=== PATIENT | female | born 1950 | race Caucasian/White ===

== ENCOUNTER → 2017-11-02 09:47 | Outpatient (CLI) | payer MEDICARE, OTHER, SELFPAY ==
[2017-11-02 11:17] LABS: AST(SGOT) 35 U/L (15-37); Alanine Aminotransfer ALT/SGPT 48 U/L (13-56); Alkaline Phosphatase 43 U/L (45-117); Bilirubin, Direct 0.14 mg/dL (0.00-0.30); Cholesterol 150 mg/dL (200); Globulin 3.2 g/dL (2.2-4.2); High Density Lipoprotein 70 mg/dL; Protein, Total 7.2 g/dL (6.4-8.2); Triglycerides 73 mg/dL; Very Low Density Lipoprotein 15 mg/dL (5-40)
== END ==
PROVIDERS: Family Provider Family Medicine; PCP Family Medicine; Visit Provider Internal Medicine Cardiovascular Disease
DX: E78.5 Hyperlipidemia, unspecified (principal); I42.8 Other cardiomyopathies; I51.9 Heart disease, unspecified; I10 Essential (primary) hypertension; E66.9 Obesity, unspecified; Z79.899 Other long term (current) drug therapy
CPT/HCPCS: 36415; 80061; 80076

== ENCOUNTER → 2017-11-28 11:31 | Outpatient (CLI) | payer MEDICARE, OTHER, SELFPAY ==
[2017-11-28 13:16] LABS: Anion Gap 6 (5-15); BUN 13 mg/dL (7-18); BUN/Creat Ratio 17.1 RATIO (10-20); Calcium,Total 8.9 mg/dL (8.5-10.1); Chloride 104 mmol/L (98-107); Creatinine, Serum 0.76 mg/dL (0.55-1.02); EST Glomerular Filtration Rate 81 mL/min (>60); Est Glom Filt Rate - Afr Amer 98 mL/min (>60); Glucose 89 mg/dL (74-106); Potassium 3.7 mmol/L (3.5-5.1); Sodium Level 138 mmol/L (136-145); T4 Free Direct 1.13 ng/dL (0.76-1.46); Thyroid Stim Hormone (TSH) 1.72 uIU/mL (0.358-3.74)
== END ==
PROVIDERS: Family Provider Family Medicine; PCP Family Medicine; Visit Provider Family Medicine
DX: E03.9 Hypothyroidism, unspecified (principal); I10 Essential (primary) hypertension
CPT/HCPCS: 36415; 80048; 84439; 84443

== ENCOUNTER → 2018-06-28 07:44 | Outpatient (CLI) | payer MEDICARE, OTHER, SELFPAY ==
[2018-06-19 15:31] VITALS: BMI 37.8
--- NOTE | 2018-06-28 07:45 | ECHOD_ITS ---
Reason For Study: CHF Procedure This was a 2D Doppler, Color Flow transthoracic echocardiogram. The study was technically difficult. DUE TO ARRHYTHMIA. Exam performed in department. Left Ventricle Normal size and thickness. The estimated ejection fraction is 65 %. Stage 1 diastolic dysfunction. No regional wall motion abnormalities noted. Right Ventricle Moderately dilated right ventricle. Normal systolic function. Atria Normal left atrium. Normal right atrium. Normal atrial septum. Mitral Valve The mitral valve is structurally normal. No prolapse or stenosis seen. Trivial mitral valve insufficiency. Tricuspid Valve Normal tricuspid valve. Trivial tricuspid valve insufficiency. Right ventricular systolic pressure estimated to be 23 mmHg. Aortic Valve Trisinus/trileaflet aortic valve. Pulmonic Valve Normal pulmonic valve. Trivial pulmonic valve insufficiency. Great Vessels Normal aortic root. Normal arch. Normal inferior vena cava. Inferior vena cava collapse with sniff. Pericardium/Pleural No pericardial effusion. MMode/2D Measurements & Calculations LVIDd: 5.5 cm IVSd: 1.0 cm Ao root diam: 3.1 cm LVIDs: 3.7 cm LVPWd: 1.0 cm RVDd: 4.4 cm FS: 32.6 % LAV(MOD-bp): 48.1 ml LA A4 area: 17.6 cm2 LA dimension(2D): 3.7 cm LAV(MOD-bp) Indexed: 23.1 ml/m2 LAV(MOD-sp2): 45.9 ml LAV(MOD-sp4): 43.5 ml RA A4 area: 17.2 cm2 Time Measurements MV dec time: 0.21 sec Doppler Measurements & Calculations MV E max valente: 69.3 cm/sec Lat Peak E' Valente: 7.3 cm/sec Med Peak E' Valente: 6.8 cm/sec MV A max valente: 81.8 cm/sec E/E' lat: 9.5 E/E' med: 10.2 MV E/A: 0.85 Ao V2 max: 111.2 cm/sec LV V1 max: 80.4 cm/sec PA V2 max: 109.2 cm/sec Ao max P.0 mmHg LV V1 max P.6 mmHg TR max valente: 221.6 cm/sec TR max P.8 mmHg Interpretation Summary The estimated ejection fraction is 65 %. Stage 1 diastolic dysfunction. Moderately dilated right ventricle. Trivial mitral valve insufficiency. Trivial tricuspid valve insufficiency. Right ventricular systolic pressure estimated to be 23 mmHg. Compared to echo report dated 07/30/2016, LV function has improvedf rom 45% to 65%. Ordering Physician: Jerrell Iniguez Referring Physician: Codey Estrada Performed By: Abby Perry RDCS, RVT
--- OUTSIDE RECORDS SUMMARY | 2018-08-14 02:40 | XMS RPT_ITS ---
:1950 Author Organization OHIP Support Name Relationship Address Phone LEAH MUNOZ Unavailable [address] [place] [address] + [place] [address] JANNA MUNOZ Unavailable [address] + [place] [address] R Unavailable Unavailable Unavailable LEAH MUNOZ Unavailable [address] + [place] [address] JANNA MUNOZ Unavailable [address] + [place] [address] R Unavailable Unavailable Unavailable LEAH MUNOZ Unavailable [address] [place] + [place] [address] JANNA MUNOZ Unavailable [address] + [place] [address] R Unavailable Unavailable Unavailable LEAH MUNOZ Unavailable [address] + [place] [address] JANNA MUNOZ Unavailable [address] + [place] [address] R Unavailable Unavailable Unavailable LEAH MUNOZ Unavailable [address] + [place] [address] JANNA MUNOZ Unavailable [address] + [place] [address] R Unavailable Unavailable Unavailable LEAH MUNOZ Unavailable [address] + [place] [address] JANNA MUNOZ Unavailable [address] + [place] [address] R Unavailable Unavailable Unavailable LEAH MUNOZ Unavailable [address] + [place] [address] JANNA MUNOZ Unavailable [address] + [place] [address] R Unavailable Unavailable Unavailable Care Team Providers Name Role Phone Jerrell Iniguez Attending Unavailable Jerrell Iniguez Referring Unavailable SeanCodey clark Primary Care Unavailable Jerrell Iniguez Consulting Unavailable Ml Walters Attending Unavailable Jerrell Iniguez Attending Unavailable Jerrell Iniguez Referring Unavailable Malys, Margaret Primary Care Unavailable RoofHarjinder Attending Unavailable Malys, Margaret Referring Unavailable Malys, Margaret Primary Care Unavailable SeanCodey Attending Unavailable Malys, Margaret Primary Care Unavailable Jerrell Iniguez Attending Unavailable Malys, Margaret Referring Unavailable Jerrell Iniguez Attending Unavailable Hira, Jerrell Referring Unavailable Sean, Codey Primary Care Unavailable PROBLEMS PROBLEMS DATE TYPE CONDITION / CODE ATTENDING STATUS SOURCE 06/28/2018 Unknown I51.9 - Heart disease, Jerrell Iniguez Active [facility] unspecified / Community I51.9(ICD-10) Hospital Repository 11/28/2017 Unknown I10 - Essential SeanCodey clark Active [facility] (primary) hypertension Community / I10(ICD-10) Hospital Repository 11/28/2017 Unknown E03.9 - SeanCodey clark Active [facility] Hypothyroidism, Community unspecified / Hospital E03.9(ICD-10) Repository 11/07/2017 Unknown I42.8 - Other Destiny, Harjinder Busch Active [facility] cardiomyopathies / Community I42.8(ICD-10) Hospital Repository 11/02/2017 Unknown Z79.899 - Other long Jerrell Iniguez Active [facility] term (current) drug Community therapy / Hospital Z79.899(ICD-10) Repository 11/02/2017 Unknown E78.5 - Jerrell Iniguez Active [facility] Hyperlipidemia, Community unspecified / Hospital E78.5(ICD-10) Repository 11/02/2017 Unknown E66.9 - Obesity, Jerrell Iniguez Active [facility] unspecified / Community E66.9(ICD-10) Hospital Repository PROCEDURES PROCEDURES No Procedure Records FoundRESULTS RESULTS ECHOCARDIOGRAM COMPLETE Observed: 06/28/2018 Status: F Source: [facility] 11:36 AM [facility] REPOSITORY [facility] Cardiovascular Services [address] [place] [address] Echo Complete 06/28/18 0757 MR#: [id number] Acct: [id number] Name: SHAWNA MUNOZ Rep #: [id number] : 1950 67 From: Jerrell Iniguez MD Attending Dr: Jerrell Iniguez MD Status: REG CLI Ordering Dr: Jerrell Inigeuz MD Date: 06/28/18 Location: [facility] Sex: F C Admitted: Reason For Study: CHF Procedure This was a 2D Doppler, Color Flow transthoracic echocardiogram. The study was technically difficult. DUE TO ARRHYTHMIA. Exam performed in department. Left Ventricle Normal size and thickness. The estimated ejection fraction is 65 %. Stage 1 diastolic dysfunction. No regional wall motion abnormalities noted. Right Ventricle Moderately dilated right ventricle. Normal systolic function. Atria Normal left atrium. Normal right atrium. Normal atrial septum. Mitral Valve The mitral valve is structurally normal. No prolapse or stenosis seen. Trivial mitral valve insufficiency. Tricuspid Valve Normal tricuspid valve. Trivial tricuspid valve insufficiency. Right ventricular systolic pressure estimated to be 23 mmHg. Aortic Valve Trisinus/trileaflet aortic valve. Pulmonic Valve Normal pulmonic valve. Trivial pulmonic valve insufficiency. Great Vessels Normal aortic root. Normal arch. Normal inferior vena cava. Inferior vena cava collapse with sniff. Pericardium/Pleural No pericardial effusion. MMode/2D Measurements AND Calculations LVIDd: 5.5 cm IVSd: 1.0 cm Ao root diam: 3.1 cm LVIDs: 3.7 cm LVPWd: 1.0 cm RVDd: 4.4 cm FS: 32.6 % LAV(MOD-bp): 48.1 ml LA A4 area: 17.6 cm2 LA dimension(2D): 3.7 cm LAV(MOD-bp) Indexed: 23.1 ml/m2 LAV(MOD-sp2): 45.9 ml LAV(MOD-sp4): 43.5 ml RA A4 area: 17.2 cm2 Time Measurements MV dec time: 0.21 sec Doppler Measurements AND Calculations MV E max valente: 69.3 cm/sec Lat Peak E' Valente: 7.3 cm/sec Med Peak E' Valente: 6.8 cm/sec MV A max valente: 81.8 cm/sec E/E' lat: 9.5 E/E' med: 10.2 MV E/A: 0.85 Ao V2 max: 111.2 cm/sec LV V1 max: 80.4 cm/sec PA V2 max: 109.2 cm/sec Ao max P.0 mmHg LV V1 max P.6 mmHg TR max valente: 221.6 cm/sec TR max P.8 mmHg Interpretation Summary The estimated ejection fraction is 65 %. Stage 1 diastolic dysfunction. Moderately dilated right ventricle. Trivial mitral valve insufficiency. Trivial tricuspid valve insufficiency. Right ventricular systolic pressure estimated to be 23 mmHg. Compared to echo report dated 07/30/2016, LV function has improvedf rom 45% to 65%. Ordering Physician: Jerrell Iniguez Referring Physician: Codey Estrada Performed By: Abby Perry, NAEL, RVT 06/28/18 113 Date Jerrell Iniguez MD CC: Jerrell Iniguez MD; Codey Estrada DO Date Dictated: 06/28/18 0757 Date Transcribed: 06/28/181135 Patrol Inspector: Signed CARDIOLOGY VISIT Observed: 06/19/2018 Status: F Source: [facility] REPORT 3:42 PM [facility] REPOSITORY [facility] [address] [place] [address] OFFICE VISIT Date of Service: 06/19/18 MR#: [id number] Acct: [id number] Name: SHAWNA MUNOZ Rep #: [id number] : 1950 Provider: Jerrell Iniguez MD Age/Sex: 67/F Location: [facility] Status: Signed HPI HPI Chief Complaint: Routine f/u Details: SHAWNA MUNOZ, is a 67 F who presents to the office today for a cardiovascular outpatient follow-up. She has a history of nonobstructive mild coronary artery disease by catheterization on 08/26/16, pulmonary emboli in 2009 presently from a DVT after a 18 hour car ride, nonischemic cardiomyopathy with an ejection fraction by echocardiogram of 45-50% on 07/30/16, hypertension, and hyperlipidemia. Last visit the patient has been relatively stable and without symptoms. She denies any chest pain, angina or shortness of breath. The patient did have some fatigue about 2 weeks ago, but no positional dizziness. She has had no changes in her exercise capacity. In our office her blood pressure is 94/60, pulse is 64 and regular her physical exam is as below. Her lipids as of 11/02/17 show an HDL of 70 and an LDL of 65. Intake Vital Signs06/19/18 Height 5 ft 5 in 06/19/18 Weight: 227 lb 06/19/18 Body Mass Index (BMI) 37.8 06/19/18 Blood Pressure 94/60 Intake Visit Reasons: 6 M FU [employer] Required: No Is patient in pain?: No Allergies Iodinated Contrast- Oral and IV Dye [Iodinated Contrast Media - Oral and] Allergy (Verified 06/19/18 15:33) Itching Sulfa (Sulfonamide Antibiotics) Allergy (Verified 06/19/18 15:33) Unknown Medications Citalopram [Celexa] 20 mg PO DAILY 11/03/13 [History Confirmed 06/19/18] Acetaminophen [Tylenol Arthritis] 650 mg PO Q4H PRN PRN 08/25/16 [History Confirmed 06/19/18] Aspirin E.C. [Ecotrin] 81 mg PO DAILY@0800 08/25/16 [History Confirmed 06/19/18] Levothyroxine [Synthroid] 50 mcg PO DAILY 08/25/16 [History Confirmed 06/19/18] losartan 50 mg-hydrochlorothiazide 12.5 mg tablet 1 tab PO DAILY #90 tab 08/22/17 [Rx Confirmed 06/19/18] simvastatin 20 mg tablet 20 mg PO QPM #90 tab 09/09/17 [Rx Confirmed 06/19/18] carvedilol 3.125 mg tablet 3.125 mg PO BID #180 tab 10/03/17 [Rx Confirmed 06/19/18] multivitamin tablet 1 tab PO DAILY 06/19/18 [History Confirmed 06/19/18] pyridoxine (vitamin B6) 100 mg tablet 100 mg PO DAILY 06/19/18 [History Confirmed 06/19/18] PFSH Medical History Anxiety (Chronic) Hypothyroidism (Chronic) Diastolic dysfunction (Chronic) Nonischemic cardiomyopathy (Chronic) Encounter for long-term current use of high risk medication (Chronic) Hyperlipidemia (Chronic) Essential (primary) hypertension (Chronic) Fatigue (Acute) Obesity (Acute) Varicose veins of both legs with edema (Acute) Family History Father CAD (coronary artery disease) cabg Myocardial infarction Mother Myocardial infarction Sudden cardiac chf Sister Heart disease Social History Smoking Status: Never smoker alcohol intake: never substance use type: does not use caffeine: Yes Type: coffee Number of servings: 2 what type of physical activity do you participate in: none seatbelt use: always do you feel safe at home: Yes ROS Const Const: Positive for other (Feels well. Had one week of severe fatigue, now is feeling ok.); negative for fatigue, weakness, body ache, fever(s), headache(s), chills, frequent falls, night sweats, daytime sleepiness, difficulty sleeping, excessive sweating, weight gain, weight loss, increased appetite, poor appetite or anorexia Eyes Eyes: Negative for blind spots, loss of peripheral vision, transient loss of vision, blurry vision, change in vision, double vision, floaters, tunnel vision or other ENT ENT: Negative for headache(s), dizziness, hearing loss, tinnitus, Nosebleed/epistaxis, balance problems, post nasal drip, lip swelling, tongue swelling, bleeding gums, hoarseness, neck pain, dry mouth or other Cardio Chest Pain: No Palpitations: No Edema: None Muscle aches with walking: None Resp Respiratory: Positive for Cough (occasional dry, nagging cough: allergies); negative for SOB with activity, SOB at rest, SOB orthopnea\SOB lying down, Coughing up blood/hemoptysis, chest congestion, pain on inspiration, snoring, stridor, wheezing, crackles, paroxysmal nocturnal dyspnea or other GI GI: Negative nausea, vomiting, heartburn, constipation, belching, bloating, cramping, vomiting blood/hematemesis, bright, red blood in stools, black,tarry stools, loose stools, Difficulty Swallowing or other : Negative for hematuria, frequent nighttime urination/ nocturia, erectile dysfunction or abnormal vaginal bleeding Musc Musc: Negative for balance problems, muscle aches/ myalgia, muscle weakness or joint pain Skin Skin: Negative redness, non-healing lesions, rash, unusual bruising, skin ulcer, wounds, jaundice or other Neuro Neuro: Negative for weakness, headache(s), frequent falls, blurry vision, double vision, dizziness, lightheadedness, near syncope, syncope, orthostatic symptoms, confusion, memory loss, restless legs, vertigo, seizures, lack of coordination or other Anam Hematologic/Lymphatic: Negative for easy bleeding, easy bruising, enlarged lymph nodes or other Endo Endo: Negative for fatigue, excessive sweating, cold intolerance, heat intolerance, flushing, increased thirst/drinking, increased hunger, hair loss, hair growth or other Psych Psych: Negative for anxiety, depression, thoughts of harming anyone, thoughts of harming yourself, visual hallucinations, panic attacks or audible hallucinations Allergy Allergy/Immunology: Negative for lip swelling, Negative for tongue swelling, Negative for rash, Negative for throat swelling, Negative for hives Cardiology Exam Const Appearance: cooperative, healthy appearing and no acute distress Nutritional Appearance: well nourished Orientation: alert, oriented x3 and oriented to person Head Head: normal to inspection, atraumatic and normocephalic Nose: external nose normal Face and Sinus: face symmetric Mouth: oral mucosae normal Eyes General: appearance normal, both eyes and all related structures Eyelids: eyelids normal Conjunctivae: conjunctivae normal Pupils: PERRL and normal by confrontation EOM: EOM intact bilaterally Neck Neck: normal visual inspection and full ROM Carotids: normal carotid upstroke Chest Chest inspection: normal inspection of the chest Auscultation: Bilateral: Clear to Auscultation Cardio Palpation: normal PMI Rate: regular rate Rhythm: regular rhythm Heart sounds: S1 normal and S2 normal GI GI: normal to inspection, no hepatosplenomegaly and bowel sounds present Neuro General: alert, oriented x3, awake, CN's II-XI intact bilaterally and moves all extremities Skin Skin: no rashes or lesions noted Extremities Pulses: Normal: Right Femoral Pulse, Left Femoral Pulse, Right Dorsalis Pedis Pulse, Left Dorsalis Pedis Pulse, Right Posterior Tibial Pulse, Left Posterior Tibial Pulse, Right Radial Pulse, Left Radial Pulse Lower Extremity Edema: None: Bilateral Psych Psychological: normal affect Assessment AND Plan 1. Nonischemic cardiomyopathy I42.8 Plan 1. Nonischemic cardiomyopathy: The patient's ejection fraction was around 45-50% in July 2016. Given the patient's fatigue symptoms as well as her hypotension, I am concerned that her ejection fraction may have worsened. I recommended that she continue baby aspirin, Coreg, and Hyzaar and we repeat her echocardiogram to monitor her LV function and pulmonary pressures. 2. Pure hypercholesterolemia E78.00 Plan 2. Hyperlipidemia: Her LDL and HDL cholesterol are at goal. Continue Zocor. 3. Return office in 6 months. This note was generated using a voice recognition system and there may be incorrect words, spelling or punctuation that were not noted when reviewing the office note prior to saving. Plan Detail Other Orders Orders: Other Medications New: Follow Up +6M (Iniguez) Coding Level of Care Code Off vis,est,level 3 Diagnoses Nonischemic cardiomyopathy I42.8 Pure hypercholesterolemia E78.00 Hyperlipidemia type: pure hypercholesterolemia Coding Level of Care Code Off vis,est,level 3 Diagnoses Nonischemic cardiomyopathy I42.8 Pure hypercholesterolemia E78.00 Hyperlipidemia type: pure hypercholesterolemia 06/19/18 1542 <Electronically signed by Jerrell Iniguez MD> Date Jerrell Iniguez MD Cosigner Signature: Date (if applicable) CC: Margaret Holm DO BASIC METABOLIC Collected: 11/28/2017 Status: F Source: [facility] PROFILE ([facility]) 11:33 AM [facility] REPOSITORY TYPE CODE TESTS RESULT OUT OF RANGE REFERENCE UNITS LAB L501.0100 74-106 mg/dL Normal GLU 89 Result Comment: Please note revised GLUCOSE reference range effective 2017. LAB L501.1000 7-18 mg/dL Normal BUN 13 LAB L501.1100 0.55-1.02 mg/dL Normal CREAT,SERUM 0.76 Result Comment: The validity of the calculated GFR AND GFRAA in patients over 70 years has not been determined. Clinical correlation is essential. LAB L501.1110 >60 mL/min Normal EST GFR 81 Result Comment: Non- GFR Calc LAB L501.1115 >60 mL/min Normal EST GFR - AA 98 Result Comment: GFR Calc LAB L501.1300 10-20 RATIO Normal BUN/CRE 17.1 LAB L501.2200 8.5-10.1 mg/dL CA Normal 8.9 LAB L501.5300 136-145 mmol/L NA Normal 138 LAB L501.5600 3.5-5.1 mmol/L K Normal 3.7 LAB L501.5900 98-107 mmol/L CL Normal 104 LAB L501.6100 21.0-32.0 mmol/L Normal CO2 28.0 LAB L501.6200 5-15 Normal GAP 6 Performed By: #### L500.2500, L501.9520, L506.0400 #### [facility] [address] [place], [address] THYROID STIM HORMONE Collected: 11/28/2017 Status: F Source: [facility] ([facility]) 11:33 AM [facility] REPOSITORY TYPE CODE TESTS RESULT OUT OF RANGE REFERENCE UNITS LAB L501.9520 0.358-3.74 uIU/mL Normal TSH 1.72 Performed By: #### L500.2500, L501.9520, L506.0400 #### [facility] [address] [place], [address] T4 FREE DIRECT Collected: 11/28/2017 Status: F Source: [facility] 11:33 AM [facility] REPOSITORY TYPE CODE TESTS RESULT OUT OF RANGE REFERENCE UNITS LAB L506.0400 0.76-1.46 ng/dL Normal T4 FREE 1.13 DIRECT Performed By: #### L500.2500, L501.9520, L506.0400 #### [facility] [address] [place], [address] CARDIOLOGY VISIT Observed: 11/12/2017 Status: F Source: [facility] REPORT 11:34 AM [facility] REPOSITORY [facility] [address] [place] [address] OFFICE VISIT Date of Service: 11/07/17 MR#: [id number] Acct: [id number] Name: SHAWNA MUNOZ Rep #: [id number] : 1950 Provider: TERESO Dixon Age/Sex: 67/F Location: [facility] Status: Signed HPI HPI Details: SHAWNA MUNOZ, is a 67 F who presents to the office today for a cardiovascular outpatient follow-up. She has a history of nonobstructive mild coronary artery disease, pulmonary emboli in 2009 presently from a DVT after a 18 hour car ride, nonischemic cardiomyopathy, hypertension, and hyperlipidemia. Pt. denies chest, arm, jaw, or neck discomfort. Her exercise tolerance is stable. Pt. denies symptoms of CHF, near syncope, or syncopal episodes. Pt. denies edema or claudication issues. Pt. denies orthopnea, PND, fever, chills, blood in urine, blood in stool, myalgia, or unexplainable fatigue. She states some SOB with with activity but feels is appropriate for her exertion. Pt. states some fast heart after drinking caffeine. Intake Vital Signs11/07/17 Height 5 ft 5 in 11/07/17 Weight: 222 lb 11/07/17 Body Mass Index (BMI) 36.9 Intake Visit Reasons: 6 M FU [employer] Required: No Accompanied by: none Is patient in pain?: No Allergies Iodinated Contrast- Oral and IV Dye [Iodinated Contrast Media - Oral and] Allergy (Verified 08/26/16 08:30) Itching Sulfa (Sulfonamide Antibiotics) Allergy (Verified 11/07/13 23:30) Unknown Medications Citalopram [Celexa] 20 mg PO DAILY 11/03/13 [History Confirmed 11/07/17] Acetaminophen [Tylenol Arthritis] 650 mg PO Q4H PRN PRN 08/25/16 [History Confirmed 11/07/17] Aspirin E.C. [Ecotrin] 81 mg PO DAILY@0800 08/25/16 [History Confirmed 11/07/17] Levothyroxine [Synthroid] 50 mcg PO DAILY 08/25/16 [History Confirmed 11/07/17] losartan 50 mg-hydrochlorothiazide 12.5 mg tablet 1 tab PO DAILY #90 tab 08/22/17 [Rx Confirmed 11/07/17] simvastatin 20 mg tablet 20 mg PO QPM #90 tab 09/09/17 [Rx Confirmed 11/07/17] carvedilol 3.125 mg tablet 3.125 mg PO BID #180 tab 10/03/17 [Rx Confirmed 11/07/17] Ejection fraction %: 45 to 49 PFSH Medical History Hypothyroidism (Chronic) Diastolic dysfunction (Chronic) Nonischemic cardiomyopathy (Chronic) Encounter for long-term current use of high risk medication (Chronic) Hyperlipidemia (Chronic) Essential (primary) hypertension (Chronic) Anxiety (Chronic) Fatigue (Acute) Obesity (Acute) Varicose veins of both legs with edema (Acute) Family History Father CAD (coronary artery disease) cabg Myocardial infarction Mother Myocardial infarction Sudden cardiac chf Sister Heart disease Social History Smoking Status: Never smoker alcohol intake: never substance use type: does not use caffeine: Yes Type: coffee Number of servings: 2 what type of physical activity do you participate in: none seatbelt use: always do you feel safe at home: Yes ROS Const Const: Negative for weakness, body ache, fever(s), chills or fatigue ENT ENT: Positive for dizziness (with position changes) Cardio Chest Pain: No Palpitations: Yes (with caffeine) Edema: Bilateral (with long travel) Muscle aches with walking: None Additional Details: elevated heart rate after drinking caffeine Resp Respiratory: Positive for SOB with activity (expected for activity level); negative for SOB at rest, SOB orthopnea\SOB lying down or paroxysmal nocturnal dyspnea GI GI: Negative nausea, black,tarry stools, bright, red blood in stools or vomiting blood/hematemesis : Negative for hematuria or frequent nighttime urination/ nocturia Musc Musc: Negative for muscle aches/ myalgia Neuro Neuro: Positive for lightheadedness and dizziness (with position changes); negative for near syncope, syncope, orthostatic symptoms or weakness Endo Endo: Negative for fatigue Cardiology Exam Const Appearance: cooperative, healthy appearing, comfortable and no acute distress Orientation: alert, awake and oriented x3 Head Head: normal to inspection Mouth: oral mucosae normal Neck Neck: no JVD and normal visual inspection Carotids: normal carotid upstroke Chest Chest inspection: normal inspection of the chest and normal respiratory effort Auscultation: Bilateral: Clear to Auscultation Cardio Rate: regular rate Rhythm: regular rhythm Heart sounds: S1 normal and S2 normal; negative rub or gallop GI GI: normal to inspection Neuro General: alert, awake, oriented x3 and CN's II-XI intact bilaterally Skin Skin: no rashes or lesions noted Extremities Pulses: Normal: Right Posterior Tibial Pulse, Left Posterior Tibial Pulse, Right Radial Pulse, Left Radial Pulse Lower Extremity Edema: None: Bilateral Psych Psychological: normal affect Supplemental Info Heart catheterization from August 2016 showed left main with no significant lesions, LAD with 40% stenosis, diagonal branches as normal, LCx is nondominant and angiographically normal, RCA that is a large and dominant vessel with 20% stenosis, PDA is angiographically normal, and posterolateral branch is angiographically normal. Ejection fraction was noted to be 40%. Echocardiogram from July 2016 showed mildly dilated left ventricle, estimated ejection fraction of 45-50%, stage I diastolic dysfunction, mild to moderate global hypokinesis of left ventricle, trivial mitral valve insufficiency, RVSP of 23 mmHg, and when compared to previous echocardiogram in October 2013 LV function appears slightly worse from 55 to 45 50%, global hypokinesis, and RVSP has remained the same. Assessment AND Plan 1. Nonischemic cardiomyopathy I42.8 Plan - GEORGE Amaro Patient's most recent heart catheterization from August 2016 showed mild nonobstructive coronary artery disease with an LAD of 40% stenosis, RCA with 20% stenosis, and ejection fraction of 40%. Echocardiogram from July 2016 showed an estimated ejection fraction 45-50%. She denies any concerning shortness of breath or lower extremity edema. She will continue current medications which include beta-amos, ARB, and diuretic. We will continue to monitor this through history, exam, and repeat echocardiogram as needed. Orders Orders: 2. Diastolic dysfunction I51.9 Plan - GEORGE Amaro Echocardiogram from July 2016 showed stage I diastolic dysfunction. Patient's activity level has remained stable. She denies any concerning or unexpected shortness of breath. We will continue to monitor this. She will continue current medications. Orders Orders: 3. Essential (primary) hypertension I10 Plan - GEORGE Amaro Patient's blood pressure is well-controlled today in the office. We will continue to monitor this. We will not make any medication regimen changes. 4. Pure hypercholesterolemia E78.00; E78.0 Plan - GEORGE Amaro Patient's lipid panel from 2018 showed cholesterol: 150, HDL: 70, LDL: 65, and triglycerides: 73. She will continue with current cholesterol-lowering medication. She will repeat both lipid and liver panel in approximately 6 months. We will wait for results of these tests for further recommendation. Plan Detail Additional Comments - GEORGE Amaro Discussed the above patient with Dr. Iniguez, he agrees with the plan of care. Thank you for allowing us to participate in the patients plan of care, if you have any questions please do not hesitate to call. This note was generated using a voice recognition system and there may be incorrect words, spelling or punctuation that were not noted when reviewing the office note prior to saving. Coding Level of Care Code Off vis,est,level 3 Diagnoses Nonischemic cardiomyopathy I42.8 Diastolic dysfunction I51.9 Essential (primary) hypertension I10 Pure hypercholesterolemia E78.00; E78.0 Hyperlipidemia type: pure hypercholesterolemia Coding Level of Care Code Off vis,est,level 3 Diagnoses Nonischemic cardiomyopathy I42.8 Diastolic dysfunction I51.9 Essential (primary) hypertension I10 Pure hypercholesterolemia E78.00; E78.0 Hyperlipidemia type: pure hypercholesterolemia 11/07/17 1000 <Electronically signed by Harjinder Dixon MEDIA RELATIONS INTERN-C> Date Harjinder Dixon MEDIA RELATIONS INTERN-C 11/12/17 1134<Electronically signed by Jerrell Iniguez MD> Cosigner Signature: Date (if applicable) Jerrell Iniguez MD CC: Margaret Holm DO 12 LEAD EKG PERFORMED Observed: 11/07/2017 Status: F [place] [facility] 8:27 AM [facility] REPOSITORY [facility] [address] [place] [address] 12 Lead EKG performed by [facility] 11/07/17 0826 MR#: [id number] Acct: [id number] Name: SHAWNA MUNOZ Rep #: [id number] : 1950 67 From: Harjinder Dixon MEDIA RELATIONS INTERN-C Attending Dr: Harjinder Dixon NP Status: DEP AMB Ordering Dr: Harjinder Dixon MEDIA RELATIONS INTERNEduardC Date: 11/07/17 [place] [facility] [place]: F C Admitted: [facility]/12 Lead EKG performed by [facility] ECG Report Interpretation Sinus Rhythm Low voltage in precordial leads. ABNORMAL Electronically signed on 11/28/2017 at 09:35 by Jerrell Iniguez 11/28/17 0936 Date Harjinder Dixon NP-C CC: Margaret Holm DO Date Dictated: 11/07/17825 Date Transcribed: 11/07/17825 Patrol Inspector: URIEL Signed LIVER PROFILE Collected: 11/02/2017 Status: F Source: [place] 9:56 AM [facility] REPOSITORY Order Comment: Order Date: 03/18/17 Order Info: [id number] - *Hepatic Function Panel Order Info: [id number] - *Lipid Profile CC PCP Comments: 12 hours fasting, may have water. TYPE CODE TESTS RESULT OUT OF RANGE REFERENCE UNITS LAB L501.1500 6.4-8.2 g/dL Normal T PROT 7.2 LAB L501.1800 3.2-5.0 g/dL Normal ALB 4.0 LAB L501.1950 2.2-4.2 g/dL Normal GLOB 3.2 LAB L501.4100 15-37 U/L Normal AST 35 LAB L501.4305 45-117 U/L Low ALK P 43 LAB L501.4405 13-56 U/L Normal ALT 48 LAB L501.4600 0.20-1.00 mg/dL Normal T BILI 0.50 LAB L501.4700 0.00-0.30 mg/dL Normal D BILI 0.14 Performed By: #### L500.3400 #### [facility] [address] [place], [address] LIPID PROFILE Collected: 11/02/2017 Status: F Source: [place] 9:56 AM [facility] REPOSITORY Order Comment: Order Date: 03/18/17 Order Info: [id number] - *Hepatic Function Panel Order Info: [id number] - *Lipid Profile CC PCP Comments: 12 hours fasting, may have water. TYPE CODE TESTS RESULT OUT OF RANGE REFERENCE UNITS LAB L501.4900 200 mg/dL Normal CHOL 150 Result Comment: <200 mg/dL Desirable 200-240 mg/dL Borderline >240 mg/dL High Risk LAB L501.5000 mg/dL Normal TRIG 73 Result Comment: The drugs N-Acetylcysteine and Metamizole may falsely depress this assay. Serum Triglycerides Reference Interval Normal <150 mg/dL Borderline high 150 - 199 mg/dL High 200 - 499 mg/dL Very High > or = 500 mg/dL LAB L501.6400 mg/dL Normal HDL 70 Result Comment: The drugs N-Acetylcysteine and Metamizole may falsely depress this assay. Reference Range HDL <40 mg/dL Low HDL Cholesterol HDL >or= 60 mg/dL High HDL Cholesterol LAB L501.6500 0-130 mg/dL Normal LDL 65 LAB L501.6600 5-40 mg/dL Normal VLDL 15 Performed By: #### L500.4100 #### [facility] [address] [place], [address] ALLERGIES ALLERGIES DATE TYPE / CODE NAME / CODE REACTION SEVERITY SOURCE 06/19/2018 Drug Iodinated Itching Unknown [facility] Allergy/416 Contrast- Oral [facility] 289903(SNOM and IV Repository ED CT) Dye/[id number](R XNORM) 06/19/2018 Drug Sulfa Unknown Unknown [facility] Allergy/416 (Sulfonamide Hospital 402576(SNOM Antibiotics)/F[address]) 3323424(RXNORM) ENCOUNTERS ENCOUNTERS ADMIT/DISCHARGE ACCOUNT ADMITTING ENCOUNTER LOCATION SOURCE NUMBER CLASS 06/28/2018 [id number] Ambulatory BMSBuilding:B [place] 8 MS.CF.[facility] Repository 06/28/2018 [id number] Ambulatory [place] 1 [facility] ing:[facility] Repository 06/19/2018/ [id number] Ambulatory BMSBuilding:B [place] 8 4 MS.[facility] Repository 11/28/2017 [id number] Ambulatory [place] 6 [facility] ing:[facility] Repository 11/07/2017/ [id number] Ambulatory BMSBuilding:B [place] 8 0 MS.[facility] Repository 11/02/2017 [id number] Ambulatory [place] 2 [facility] ing:LAB Repository 11/01/2017 [id number] Ambulatory B[place] 0 [facility] Repository PAYERS PAYERS ENCOUNTER GUARANTOR PAYER SUBSCRIBER SOURCE 06/28/2018 SHAWNA Grant Primary SHAWNA [id number] Insurance:MEDICARE MILLERDOB: [facility] PART A [id number] [place], Number: Repository [place] [id number]: [id number] Date:2018-06-19 () 06/28/2018 Secondary SHAWNA M [place] Insurance:LEI ESPARZA: Community SUPPLEMENT [id number] Number: [id number] Date:5056-40-83EKZOHX AN [address] [address], [place] [address]WS: 06/28/2018 Tertiary NOT GIVENUNK [place] Insurance:SELF PAY [facility] Number: Effective Repository Date:2018-06-28 06/28/2018 SHAWNA Grant Primary SHAWNA [id number] Insurance:MEDICARE MILLERDOB: Community [place] PART A [facility] [id number] Number: Repository [place] [id number]: [id number] Date:2018-06-19 () 06/28/2018 Secondary SHAWNA M [place] Insurance:LEI SHOEMAKERB: Community SUPPLEMENT [id number] Rep[facility] Number: [id number] Date:[id number] AN [address] [address], [place] [address]ML: 06/28/2018 Tertiary NOT GIVENUNK [place] Insurance:SELF PAY [facility] Number: Effective Repository Date:2018-06-19 06/19/2018 SHAWNA Grant Primary SHAWNA [id number] Insurance:MEDICARE MILLERDOB: Community [place] PART A [facility] [id number], Number: Repository [place] [id number]: [id number] Date:2017-11-07 () 06/19/2018 Secondary SHAWNA M [place] Insurance:LEI ESPARZA: Community SUPPLEMENT [id number] Number: [id number] Date:3194-91-75EVOAKX [address] [address], [place] [address]KO: 06/19/2018 Tertiary NOT GIVENUNK [place] Insurance:SELF PAY [facility] Number: Effective Repository Date:2018-06-19 11/28/2017 SHAWNA Grant Primary SHAWNA [id number] Insurance:MEDICARE MILLERDOB: Community [place] PART A [facility] [id number], Number: Repository [place] [address]Pix: [id number] Date:2017-11-28 () 11/28/2017 Secondary SHAWNA M [place] Insurance:LEI MUNOZDOB: Community SUPPLEMENT [id number] Repository Number: [id number] Date:[id number] [address] [address], [place] [address]EG: 11/28/2017 Tertiary NOT GIVENUNK [place] Insurance:SELF PAY [facility] Number: Effective Repository Date:2017-11-28 11/07/2017 SHAWNA Grant Primary SHAWNA [id number] Insurance:MEDICARE MILLERDOB: Community [place] PART A [facility] [id number] [place], Number: Repository [place] [address]Oiu: [id number] Date:2017-06-27 () 11/07/2017 Secondary SHAWNA M [place] Insurance:LEI MUNOZDOB: Community SUPPLEMENT [id number] [facility] Repository Number: [id number] Date:5391-81-16NKCJLONORTHWEST MEDICAL CENTER LIFE [address] [address], [place] [address]DP: 11/07/2017 Tertiary NOT GIVENUNK [place] Insurance:SELF PAY [facility] Number: Effective Repository Date:2017-11-07 11/02/2017 SHAWNA Grant Primary SHAWNA [id number] Insurance:MEDICARE MILLERDOB: Community [place] PART A [facility] [id number] [facility], Number: Repository [place] [id number]: [id number] Date:2017-11-02 () 11/02/2017 Secondary SHAWNA Juanita [place] Insurance:LEI ESPARZA: Community SUPPLEMENT [id number] [facility] [place] Repository Number: [id number] Date:0206-15-80GMRQQO [address] [address], [place] [address]KG: 11/02/2017 Tertiary NOT GIVENUNK [place] Insurance:SELF PAY [facility] Number: Effective Repository Date:2017-11-02 11/01/2017 Shawna M Primary NOT GIVENUNK [place] [id number] Insurance:SELF PAY [facility], Number: Effective Repository [place] [address]Utu: Date:2017-11-01 ()
== END ==
PROVIDERS: Family Provider Family Medicine; PCP Family Medicine; Referring Provider Internal Medicine Cardiovascular Disease; Visit Provider Internal Medicine Cardiovascular Disease
DX: I51.9 Heart disease, unspecified (principal)
CPT/HCPCS: 93306

== ENCOUNTER 2018-10-19 07:25 | Emergency (ER) | payer MEDICARE, OTHER, SELFPAY ==
[2018-06-19 15:31] VITALS: BMI 37.8
[2018-10-19 07:26] VITALS: BP 117/71; PULSE 66; RESP 18; TEMP 36.8; O2SAT 98; BMI 37.4
--- NOTE | 2018-10-19 07:38 | EKG12_ITS ---
Test Reason : BACK PAIN Blood Pressure : / mmHG Vent. Rate : 060 BPM Atrial Rate : 060 BPM P-R Int : 186 ms QRS Dur : 092 ms QT Int : 450 ms P-R-T Axes : 028 -03 029 degrees QTc Int : 450 ms Normal sinus rhythm Normal ECG Confirmed by COLETTE MUÑOZ, CAMERON ([id number]), assignment desk editor TERESA RIOS ([id number]) on 10/23/2018 9:28:44 AM Referred By: TEJAS Confirmed By:CAMERON ALVARENGA MD
--- NOTE | 2018-10-19 07:38 | RAD_ITS ---
STUDY: X-RAY CHEST REASON FOR EXAM: Female, 67 years old. Pleuritic chest pain. TECHNIQUE: PA and lateral views of the chest. COMPARISON: Comparison is made with prior study dated August 24, 2016. FINDINGS: EKG electrodes are seen. Minimal increased linear markings at the left lung base suggestive of a left basilar atelectasis. There is no demonstrated pleural abnormality. There is borderline cardiomegaly. Normal mediastinum and mayito. Normal visualized pulmonary arteries. There is atherosclerotic tortuosity of the aortic arch and descending thoracic aorta. There are degenerative changes of the visualized thoracic spine. Normal visualized ribs, clavicles, and shoulders. There is no demonstrated abnormality of the visualized soft tissue structures of the upper abdomen. RAD/Chest PA and Lateral IMPRESSION: Minimal increased linear markings at the left lung base suggestive of left basilar atelectasis Electronically Signed: Garrett Avila, at 8:35 EDT , Service support ,
--- NOTE | 2018-10-19 07:44 | ED.DCSUM_ITS ---
History of Present Illness Chief Complaint: Back Informant: Patient, Significant Other Onset: Today Context: Sudden Onset Timing: Continuous Quality: Pain left scapular region with pleuritic component Location: Left scapula Current Severity: Mild Maximum Severity: Severe Worsened by: Movement and breathing Relieved by: Nothing Associated Symptoms: Dyspnea on exertion Narrative: Patient is a 67-year-old woman who has history of pulmonary embolus x2 with no known etiology. Anticoagulant was discontinued 8 months ago by her doctor. She does have history of hypertension hypercholesterolemia. She is a non-smoker. She was awakened from sleep with left scapular pain that is pleuritic. There is a positional component. She does complain of dyspnea with exertion. She denies chest discomfort. She does have a slight cough. She states she had a more significant cough when she was diagnosed with pulmonary embolus. She denies leg pain, swelling discoloration. She recently read return from [place], 2 weeks ago. She denies dysuria, frequency, urgency or hematuria. She denies history of renal or ureterolithiasis. She denies trauma, rash or any skin lesions. Prior similar symptoms: No Recent Illness/Hospitalization: No - Past Medical History (1) Prior pulmonary embolus Status: Chronic (2) Anxiety Status: Chronic (3) Essential (primary) hypertension Status: Chronic (4) Hyperlipidemia Status: Chronic (5) Hypothyroidism Status: Chronic (6) Nonischemic cardiomyopathy Status: Chronic Past Medical History - Allergies and Home Meds Allergies/Adverse Reactions: Allergies Iodinated Contrast- Oral and IV Dye [Iodinated Contrast Media - Oral and] Allergy (Verified 06/19/18 15:33) Itching Sulfa (Sulfonamide Antibiotics) Allergy (Verified 06/19/18 15:33) Unknown Primary Care Physician: Codey Estrada DO [Primary Care Provider] - Prior records reviewed: Yes Surgical History: noncontributory, - - Hysterectomy Lives: Spouse/ Significant Other Smoking Status: Never smoker Review of Systems General: Denies: Chills, Fever, Malaise, Subjective, Sweats, Weight loss, - Eyes: Denies: Visual changes - bilaterally, Blurred Vision - bilaterally ENT: Denies: Rhinorrhea, Sore throat Cardiovascular: Denies: Chest pain, Palpitations, Heart racing, -, - Respiratory: Reports: Dyspnea, Cough, Dyspnea on exertion. Denies: Sputum, Orthopnea, Paroxysmal nocturnal dyspnea Gastrointestinal: Denies: Abdominal pain, Nausea, Vomiting, Diarrhea, Melena, Hematochezia Genitourinary: Denies: Dysuria, Hematuria, Frequency Musculoskeletal: Reports: Back pain. Denies: Myalgias, Arthralgias, Neck pain, Extremity Pain Skin: Denies: Rash Neurological: Denies: Weakness, Parasthesia Hematologic: Denies: Easy bruising, Easy bleeding Allergy: Denies: Uticaria Physical Exam Vital Signs/Narrative: Vital Signs Temp Pulse Resp BP Pulse Ox 10/19/18 07:26 98.2 F 66 18 117/71 98 Inital Vital Signs reviewed: Yes General: Well nourished, Well developed, No Acute Distress - She does appear uncomfortable with breathing and movement. Head: Normocephalic, Atraumatic Eyes: Perrl, EOMI. Negative for: Pale conjunctiva, Scleral icterus ENT: Moist mucous membranes, No rhinorrhea Neck: Supple, Nontender, No lymphadenopathy, No JVD Cardiovascular: Regular rate, Regular rhythm, No murmurs, Normal S1, Normal S2 Respiratory: No distress, CTA bilaterally, Chest nontender Abdomen: Soft, Nontender, Nondistended, Normal bowel sounds, No masses. Negative for: Hepatomegaly, Splenomegaly Back: Nontender, Normal Inspection. Negative for: CVA tenderness Extremities: Nontender, No edema, - - There is no asymmetry, swelling, discoloration, leg vein distention, palpable cords or tenderness along the distribution of the deep venous system. Skin: Normal color, No rash. Negative for: Cyanosis, Jaundice, Rash Neurological: Alert, Oriented x3, Cranial nerves II-XII grossly intact, Normal Strength, Normal Sensation, Normal Gait Psychological: Normal affect, Normal Mood Diagnostic/Tx/Re-eval Chest X-Ray - ED: 2 View, Read by ED Physician, Normal, Heart, Mediastinum, Bony Structures Discoid atelectasis noted left. Will obtain CTA to evaluate for PE since d- dimer is elevated. 10/19/18 07:38 Chest PA and Lateral [RAD] Stat 10/19/18 08:30 CTA Chest W/WO Contrast [CT] Stat Laboratory Results 10/19/18 10/19/18 10/19/18 08:00 08:00 08:00 WBC 4.9 RBC 4.25 Hgb 13.4 Hct 39.6 MCV 93.2 MCH 31.5 MCHC 33.8 RDW 13.0 RDW Differential 44.3 H Plt Count 171 MPV 10.0 Immature Gran % (Auto) 0.000 Neut % (Auto) 64.5 Lymph % (Auto) 26.7 Billings % (Auto) 5.7 Eos % (Auto) 2.5 Baso % (Auto) 0.6 Absolute Neuts (auto) 3.1 Absolute Lymphs (auto) 1.30 Total Counted Not Reportable D-Dimer Quant (PE/DVT) 0.68 H* Sodium 139 Potassium 3.7 Chloride 104 Carbon Dioxide 28.0 Anion Gap 7 BUN 20 H Creatinine 0.83 Estim Creat Clear Calc 58.35 Est GFR (MDRD) Af Amer 89 Est GFR (MDRD) Non-Af 73 BUN/Creatinine Ratio 24.1 H Glucose 108 H Calcium 8.8 Troponin I < 0.015 CTA of the chest reveals no evidence of pulmonary embolus, dissection or any acute process. There is evidence of scarring left base. - Rhythm Strip Rhythm Strip: Sinus Rhythm Rate: 66 Ectopy: None - EKG Initial EKG Interpretation: Sinus Arrythmia - Ventricular rate 60. TX interval, Q restorat ion, QT interval and axis are normal. The EKG is normal. - Medical Decision Making With prior history of PE for unknown cause and discontinuation of anticoagulant need to consider pulmonary embolus. This may represent pleurisy secondary to viral infection or pneumonia. Will obtain appropriate blood work, chest x-ray and EKG. Vital signs are unremarkable. D-dimer was obtained. Troponin was obtained to evaluate for atypical presentation cardiac. Also need to consider other causes for elevated troponin that is not secondary to ischemia. That would include pulmonary embolus if significant. ED Disposition - Plan for ED Patient: Disposition: Home or Assisted Living Diagnosis: Pleuritic pain Instructions: ED Chest Pain Pleurisy Prescriptions: Naproxen [Naprosyn] 500 mg PO BID #14 tablet Referrals: Codey Estrada DO [Primary Care Provider] - 3-5 Days if not improving
[2018-10-19 08:15] LABS: Absolute Neutrophil Count 3.1 X10^3/uL (2.0-7.7); Basophil# 0.03 X10^3/uL; Basophil% 0.6 % (0-1); Eosinophil# 0.12 X10^3/uL; Eosinophils% 2.5 % (0-5); Hematocrit 39.6 % (37-47); Hemoglobin 13.4 g/dl (12.0-15.0); Lymphocyte % 26.7 % (19-41); Mean Corp Hgb Conc 33.8 g/gl (32-36); Mean Corpuscular Hgb 31.5 pg (27.0-32.0); Mean Corpuscular Volume 93.2 fL (81-99); Monocyte# 0.28 X10^3/uL; Monocyte% 5.7 % (0-10); Neutrophil # 3.14 X10^3/uL (2.7-7.7); Neutrophil % 64.5 % (47-70); Platelet Count 171 K/mm3 (150-450); RBC Distribution Width SD 44.3 fl (35.1-43.9); Red Blood Count 4.25 M/mm3 (4.2-5.4); White Blood Count 4.9 K/mm3 (4.4-11.0)
[2018-10-19 08:16] LABS: POSITIVE COUNT NO; POSITIVE DIFFERENTIAL NO; POSITIVE MORPHOLOGY NO
[2018-10-19 08:25] LABS: D-Dimer Quantitative (DVT/PE) 0.68 FEU/ug/m (0.27-0.49)
[2018-10-19 08:30] LABS: Anion Gap 7 (5-15); BUN 20 mg/dL (7-18); BUN/Creat Ratio 24.1 RATIO (10-20); Calcium,Total 8.8 mg/dL (8.5-10.1); Chloride 104 mmol/L (98-107); Creatinine, Serum 0.83 mg/dL (0.55-1.02); EST Glomerular Filtration Rate 73 mL/min (>60); Est Glom Filt Rate - Afr Amer 89 mL/min (>60); Estimated Creatinine Clearance 58.35 ml/min; Glucose 108 mg/dL (74-106); Potassium 3.7 mmol/L (3.5-5.1); Sodium Level 139 mmol/L (136-145)
--- NOTE | 2018-10-19 08:30 | CT_ITS ---
STUDY: CTA CHEST REASON FOR EXAM: Female, 67 years old. Elevated d-dimer and pleuritic chest pain. History of prior pulmonary emboli. RADIATION DOSAGE (If Supplied By Facility): CTDIvol = ( 15.99 ) mGy, DLP = ( 515.99 ) mGycm TECHNIQUE: The examination was performed with the intravenous administration of 100CC IV Isovue 370. Post-processing of the angiographic images was performed, with multiplanar reformation and 3D reconstruction. Individualized dose optimization techniques were used for this CT. COMPARISON: Comparison is made with prior examination dated June 25, 2016. FINDINGS: Normal enhancement of the main pulmonary artery and right and left pulmonary arteries. Normal enhancement of the bilateral peripheral pulmonary arteries. There is no demonstrated pulmonary embolism. There is atherosclerotic calcification of the aortic arch with tortuosity. There is no demonstrated aortic dissection. Normal heart and pericardium. Normal mediastinum. There are calcified right hilar lymph nodes. Normal visualized trachea and bronchi. The lungs are well expanded. Increased linear markings at the left lung base suggestive of a left basilar scarring. Stable 6 mm noncalcified nodule in the right upper lobe as seen on axial image #157. Normal pleura. Normal chest wall structures. Normal osseous structures. Normal visualized upper abdomen. CT/CTA Chest W/WO Contrast IMPRESSION: Normal CTA chest examination, without a demonstrated pulmonary embolism or arterial dissection. Stable scarring at the left lung base. Electronically Signed: Garrett Avila, at 11:26 EDT , Service support ,
--- NOTE | 2018-10-19 08:32 | ED.RN ---
MD AWARE OF ELEVATED D-DIMER. SEE NEW ORDERS.
[2018-10-19] MEDS: DiphenhydrAMINE 50 MG/ML Syringe 25 MG IV (09:24)
[2018-10-19 09:50] VITALS: BP 126/74; PULSE 61; RESP 18; O2SAT 96
[2018-10-19] MEDS: Naproxen 250 MG Tablet 500 MG PO (11:51)
[2018-10-19 11:54] VITALS: BP 117/71; PULSE 71; RESP 18; O2SAT 97
== END 2018-10-19 11:55 | disposition home or self-care (01) ==
PROVIDERS: Emergency Provider Emergency Medicine; Family Provider Family Medicine; PCP Family Medicine
DX: R07.89 Other chest pain (principal); Z86.711 Personal history of pulmonary embolism; I10 Essential (primary) hypertension; E78.5 Hyperlipidemia, unspecified; E03.9 Hypothyroidism, unspecified; I42.8 Other cardiomyopathies; F41.9 Anxiety disorder, unspecified; Z79.82 Long term (current) use of aspirin; Z79.899 Other long term (current) drug therapy
CPT/HCPCS: 71046; 71275; 80048; 84484; 85025; 85379; 93005; 96361; 96374; 96375; 99285; J7030; Q9967; A4216; J3490

== ENCOUNTER → 2018-12-15 09:08 | Outpatient (CLI) | payer MEDICARE, OTHER, SELFPAY ==
[2018-12-15 13:15] LABS: AST(SGOT) 26 U/L (15-37); Alanine Aminotransfer ALT/SGPT 32 U/L (13-56); Albumin, Serum 3.5 g/dL (3.2-5.0); Alkaline Phosphatase 41 U/L (45-117); Bilirubin, Direct 0.14 mg/dL (0.00-0.30); Cholesterol 128 mg/dL (200); Globulin 3.3 g/dL (2.2-4.2); High Density Lipoprotein 53 mg/dL; Protein, Total 6.8 g/dL (6.4-8.2); Thyroid Stim Hormone (TSH) 1.75 uIU/mL (0.358-3.74); Triglycerides 64 mg/dL; Very Low Density Lipoprotein 13 mg/dL (5-40)
== END ==
PROVIDERS: Family Provider Family Medicine; PCP Family Medicine; Visit Provider Nurse Practitioner Family
DX: E03.9 Hypothyroidism, unspecified (principal); E78.5 Hyperlipidemia, unspecified; Z51.81 Encounter for therapeutic drug level monitoring
CPT/HCPCS: 36415; 80061; 80076; 84439; 84443

== ENCOUNTER → 2018-12-21 13:39 | Outpatient (CLI) | payer MEDICARE, SELFPAY ==
--- NOTE | 2018-12-21 13:48 | BD_ITS ---
STUDY: DUAL ENERGY X-RAY ABSORPTIOMETRY / DXA REASON FOR EXAM: Female, 68 years old. Early menopause. Loss of joint. TECHNIQUE: Bone Mineral Density (BMD) measurements of lumbar spine and bilateral hips were obtained. COMPARISON: None. FINDINGS: Lumbar Spine (L1-L4): g/cm2 (1.140) / T-score (-0.2) / Z-score (1.4) Findings are suggestive of normal bone density with a low fracture risk. Left Femur Total: g/cm2 (0.923) / T-score (-0.7) / Z-score (0.6) Left Femoral Neck: g/cm2 (0.845) / T-score (-1.4) / Z-score (0.1) Right Femur Total: g/cm2 (0.929) / T-score (-0.6) / Z-score (0.6) Right Femoral Neck: g/cm2 (0.900) / T-score (-1.0) / Z-score (0.5) BD/Dexa Bone Density Study IMPRESSION: The patient is considered osteopenic as outlined below according to World [place] Organization (WHO) criteria with a low fracture risk. Reference Information: The T-score is the number of standard deviations above or below the standard which is normal for young adults at their peak bone mineral density. The World Health Organization (WHO) interprets the T-scores as follows: Above -1 Normal bone density Between -1 and -2.5 Osteopenia Equal to / or below -2.5 Osteoporosis As a practical clinical guideline, osteopenia may be graded as follows: Mild -1 through -1.5 Moderate -1.6 through -2.0 Severe -2.1 through -2.4 The Z-score is the number of standard deviations above or below age-matched controls. A Z-score of less than -1.5 would be considered abnormal. References: 1. NIH Osteoporosis and Related Bone Diseases http://www.osteo.org 2. International Society for Clinical Densitometry http://www.iscd.org 3. National Osteoporosis Foundation http://www.nof.org Electronically Signed: Garrett Avila, at 9:20 EDT , Service support ,
== END ==
PROVIDERS: Family Provider Family Medicine; PCP Family Medicine; Referring Provider Family Medicine; Visit Provider Family Medicine
DX: M81.0 Age-related osteoporosis without current pathological fracture (principal)
CPT/HCPCS: 77080

== ENCOUNTER → 2019-01-04 | Outpatient (CLI) | payer MEDICARE, OTHER, SELFPAY ==
--- NOTE | 2019-01-04 13:15 | BI_ITS ---
MAMMOGRAPHY - BILATERAL SCREENING REASON FOR EXAM: Female, 68 years old. Routine annual screening examination. PERTINENT HISTORY: Non-contributory. TECHNIQUE: Digital bilateral breast hiro (3D mammographic acquisition) in the CC and MLO projections. 2-D mediolateral oblique (MLO) and craniocaudad (CC) views of both breasts were obtained. CAD: Full Field Digital Mammography with Computer Added Detection was performed. COMPARISON: Comparison is made with prior study dated July 26, 2016 and March 06, 2015. FINDINGS: Breast Composition: There are scattered areas of fibroglandular density. There are no dominant masses or suspicious calcifications. No other significant abnormalities are identified. There has been no significant change since the prior study. BI/SCREEN MAMM (CAD) W/HIRO BILAT IMPRESSION: Stable bilateral screening mammogram. Yearly follow-up mammogram recommended. (A) ASSESSMENT CATEGORY: BIRADS Category 1: Negative. A letter regarding these results will be sent to the patient by the facility within 30 days. Approximately 10% of breast cancers are not detected by mammography. A normal mammogram should not delay biopsy of a clinically suspicious abnormality. [id number] Electronically Signed: Garrett Avila, at 14:46 EDT , Service support ,
== END | disposition home or self-care (01) ==
LOC: OPBI 13:13
PROVIDERS: Family Provider Family Medicine; PCP Family Medicine; Referring Provider Family Medicine; Visit Provider Family Medicine
DX: Z12.31 Encounter for screening mammogram for malignant neoplasm of breast (principal)
CPT/HCPCS: 77063; 77067

== ENCOUNTER → 2019-09-25 08:48 | Outpatient (CLI) | payer MEDICARE, OTHER, SELFPAY ==
[2019-09-06 13:14] VITALS: BMI 35.2
--- NOTE | 2019-09-25 08:48 | ECHOD_ITS ---
Reason For Study: ARRHYTHMIA Procedure This was a 2D Doppler, Color Flow transthoracic echocardiogram. Exam performed in department. Left Ventricle Normal size and thickness. The estimated ejection fraction is 50-55 %. Stage 1 diastolic dysfunction. There is mild global hypokinesis of the left ventricle. Right Ventricle Normal size and thickness. Normal systolic function. Atria Normal left atrium. Normal right atrium. Normal atrial septum. Mitral Valve The mitral valve is structurally normal. No prolapse or stenosis seen. Mild (1+) mitral valve insufficiency. Tricuspid Valve Normal tricuspid valve. Trivial tricuspid valve insufficiency. Right ventricular systolic pressure estimated to be 27 mmHg. Aortic Valve Trisinus/trileaflet aortic valve. Mild focal aortic valve thickening. Pulmonic Valve Normal pulmonic valve. Great Vessels Normal aortic root. Normal arch. Normal inferior vena cava. Inferior vena cava collapse with sniff. Pericardium/Pleural No pericardial effusion. MMode/2D Measurements & Calculations LVIDd: 5.9 cm IVSd: 0.90 cm Ao root diam: 3.3 cm LVIDs: 4.3 cm LVPWd: 0.78 cm FS: 26.5 % LAV(MOD-bp): 35.2 ml LVAd ap4: 34.3 cm2 SV(MOD-sp4): 66.4 ml LAV(MOD-bp) Indexed: 17.6 ml/m2 EDV(MOD-sp4): 119.9 ml LAV(MOD-sp2): 33.5 ml EDV(sp4-el): 122.8 ml LAV(MOD-sp4): 32.8 ml LVAs ap4: 21.8 cm2 ESV(MOD-sp4): 53.5 ml ESV(sp4-el): 52.9 ml EF(MOD-sp4): 55.4 % EF(sp4-el): 56.9 % SV(sp4-el): 69.9 ml LA A4 area: 14.4 cm2 LA dimension(2D): 3.2 cm RA A4 area: 13.4 cm2 Time Measurements MV dec time: 0.27 sec Doppler Measurements & Calculations MV E max valente: 58.6 cm/sec Lat Peak E' Valente: 5.7 cm/sec Med Peak E' Valente: 4.3 cm/sec MV A max valente: 80.5 cm/sec E/E' lat: 10.2 E/E' med: 13.8 MV E/A: 0.73 Ao V2 max: 130.4 cm/sec LV V1 max: 79.3 cm/sec PA V2 max: 128.9 cm/sec Ao max P.8 mmHg LV V1 max P.5 mmHg TR max valente: 234.7 cm/sec TR max P.1 mmHg Interpretation Summary The estimated ejection fraction is 50-55 %. Stage 1 diastolic dysfunction. There is mild global hypokinesis of the left ventricle. Mild (1+) mitral valve insufficiency. Trivial tricuspid valve insufficiency. Right ventricular systolic pressure estimated to be 27 mmHg. Compared to echo report dated 06/28/2018, no appreciable changes noted. Ordering Physician: Jerrell Iniguez Referring Physician: SOFIYA AZEVEDO Performed By: Susan Urbano, NAEL, RVT
== END ==
PROVIDERS: PCP Family Medicine; Referring Provider Internal Medicine Cardiovascular Disease; Visit Provider Internal Medicine Cardiovascular Disease
DX: I49.8 Other specified cardiac arrhythmias (principal); Z86.711 Personal history of pulmonary embolism
CPT/HCPCS: 93306

== ENCOUNTER → 2019-10-03 09:13 | Outpatient (CLI) | payer MEDICARE, OTHER, SELFPAY ==
[2019-09-06 13:14] VITALS: BMI 35.2
== END ==
PROVIDERS: PCP Family Medicine; Referring Provider Internal Medicine Cardiovascular Disease; Visit Provider Internal Medicine Cardiovascular Disease
DX: I42.8 Other cardiomyopathies (principal); Z86.711 Personal history of pulmonary embolism; I11.9 Hypertensive heart disease without heart failure

== ENCOUNTER → 2019-10-12 06:58 | Outpatient (CLI) | payer MEDICARE, OTHER, SELFPAY ==
[2019-09-06 13:14] VITALS: BMI 35.2
--- NOTE | 2019-10-12 16:12 | STRESSREP ---
Stress Test Report Exercise myocardial perfusion stress test. 68-year-old lady with a history of nonobstructive coronary disease in 2017. Stress protocol: Resting EKG demonstrates normal sinus rhythm with a rate of 70 bpm occasional premature ventricular complexes are noted resting blood pressures 124/70 mmHg. The patient exercised according to regular Jose protocol for total duration of 7 minutes. The maximum heart rate attained was 136 bpm which was 88% of maximum predicted heart rate the maximum workload was 8.5 metabolic equivalents. At rest there were no ST or T wave changes noted suggest ischemia peak exercise upsloping ST changes only were noted with no meet the criteria for ischemia. No clinical angina was noted the test was terminated due to dyspnea. The resting blood pressure was 124/70 with a peak blood pressure 160/64. Rate-pressure product was 20,600. Myocardial perfusion protocol. 15.0 mCi of technetium 99m sestamibi was injected at rest. The patient exercised according to regular Jose protocol peak exercise 44.5 mCi of technetium 99m sestamibi was injected stress images were obtained stress and rest images were reconstructed and compared in the short axis vertical long horizontal long axis. Gated images were also obtained Perfusion SPECT analysis: Review of the images demonstrate normal uptake of tracer noted in all areas of the myocardium. No obvious areas of reversibility are noted suggest ischemia no previous infarct was noted. Gated images. Gated images could not be obtained. Conclusion: Normal exercise myocardial perfusion stress test at a moderate workload.
== END ==
PROVIDERS: PCP Family Medicine; Referring Provider Internal Medicine Cardiovascular Disease; Visit Provider Internal Medicine Cardiovascular Disease
DX: R06.09 Other forms of dyspnea (principal); I42.8 Other cardiomyopathies; E78.5 Hyperlipidemia, unspecified; I10 Essential (primary) hypertension
CPT/HCPCS: 78452; 93017; A9500; A4216

== ENCOUNTER → 2019-12-14 08:05 | Outpatient (CLI) | payer MEDICARE, OTHER, SELFPAY ==
[2019-09-06 13:14] VITALS: BMI 35.2
[2019-12-14 13:31] LABS: ALB/GLOB Ratio 1.1 RATIO (0.9-2.4); AST(SGOT) 30 U/L (15-37); Alanine Aminotransfer ALT/SGPT 37 U/L (13-56); Albumin, Serum 3.7 g/dL (3.2-5.0); Alkaline Phosphatase 41 U/L (45-117); Anion Gap 6 (5-15); BUN 15 mg/dL (7-18); BUN/Creat Ratio 18.6 RATIO (10-20); Bilirubin, Direct 0.15 mg/dL (0.00-0.30); Calcium,Total 8.9 mg/dL (8.5-10.1); Chloride 103 mmol/L (98-107); Cholesterol 155 mg/dL (200); Creatinine, Serum 0.81 mg/dL (0.55-1.02); EST Glomerular Filtration Rate 75 mL/min (>60); Est Glom Filt Rate - Afr Amer 91 mL/min (>60); Globulin 3.4 g/dL (2.2-4.2); Glucose 91 mg/dL (74-106); High Density Lipoprotein 62 mg/dL; Potassium 3.5 mmol/L (3.5-5.1); Protein, Total 7.1 g/dL (6.4-8.2); Sodium Level 138 mmol/L (136-145); T4 Free Direct 1.12 ng/dL (0.76-1.46); Thyroid Stim Hormone (TSH) 2.69 uIU/mL (0.358-3.74); Triglycerides 66 mg/dL; Very Low Density Lipoprotein 13 mg/dL (5-40)
== END ==
PROVIDERS: Internal Medicine Cardiovascular Disease; PCP Family Medicine; Visit Provider Family Medicine
DX: E03.9 Hypothyroidism, unspecified (principal); E78.5 Hyperlipidemia, unspecified; I11.9 Hypertensive heart disease without heart failure; Z51.81 Encounter for therapeutic drug level monitoring
CPT/HCPCS: 36415; 80053; 80061; 82248; 84439; 84443

== ENCOUNTER → 2019-12-18 09:29 | Outpatient (CLI) | payer MEDICARE, OTHER, SELFPAY ==
[2019-09-06 13:14] VITALS: BMI 35.2
[2019-12-18 12:16] LABS: Erythrocyte Sedimentation Rate 2 mm/hr (0-30)
[2019-12-18 13:10] LABS: CRP < 2.90 mg/L (0.0-3.0); Rheumatoid Factor < 10.0 IU/mL (<15)
[2019-12-19 17:15] LABS: ANTINUCLEAR ANTIBODIES DIRECT Negative (Negative)
[2019-12-20 05:18] LABS: CCP IgG Antibodies 6 units (0-19)
== END ==
PROVIDERS: PCP Family Medicine; Visit Provider Family Medicine
DX: M13.0 Polyarthritis, unspecified (principal)
CPT/HCPCS: 36415; 85652; 86038; 86140; 86200; 86431

== ENCOUNTER → 2020-02-13 10:01 | Outpatient (CLI) | payer MEDICARE, OTHER, SELFPAY ==
[2020-01-16 11:13] VITALS: BMI 35.9
--- NOTE | 2020-02-13 10:02 | BI_ITS ---
MAMMOGRAPHY - BILATERAL SCREENING REASON FOR EXAM: Female, 69 years old. Routine annual screening examination. PERTINENT HISTORY: Non-contributory. TECHNIQUE: Digital bilateral breast hiro (3D mammographic acquisition) in the CC and MLO projections. 2-D mediolateral oblique (MLO) and craniocaudad (CC) views of both breasts were obtained. CAD: Full Field Digital Mammography with Computer Added Detection was performed. COMPARISON: Comparison is made with prior examination dated 01/04/2019 and 07/26/2016. FINDINGS: Breast Composition: There are scattered areas of fibroglandular density. There are no dominant masses or suspicious calcifications. No other significant abnormalities are identified. There has been no significant change since the prior study. BI/SCREEN MAMM (CAD) W/HIRO BILAT IMPRESSION: Stable bilateral screening mammogram. Yearly follow-up mammogram recommended. (A) ASSESSMENT CATEGORY: BIRADS Category 1: Negative. A letter regarding these results will be sent to the patient by the facility within 30 days. Approximately 10% of breast cancers are not detected by mammography. A normal mammogram should not delay biopsy of a clinically suspicious abnormality. [id number] Electronically Signed: Garrett Avila, at 11:53 EDT , Service support ,
== END ==
PROVIDERS: PCP Family Medicine; Referring Provider Nurse Practitioner Family; Visit Provider Nurse Practitioner Family
DX: Z12.31 Encounter for screening mammogram for malignant neoplasm of breast (principal); N62 Hypertrophy of breast
CPT/HCPCS: 77063; 77067

== ENCOUNTER 2020-02-19 05:52 | Day surgery (SDC) | payer MEDICARE, OTHER, SELFPAY ==
[2020-01-16 11:13] VITALS: BMI 35.9
[2020-02-14 14:31] VITALS: BMI 35.9
--- NOTE | 2020-02-18 22:39 | HP.PCM_ITS ---
History and Physical Date of Admission: 02/19/20 HISTORY OF PRESENT ILLNESS 69 year old woman presents with complaints of bilateral macromastia as well as associated painful symptomatology of neck pain, thoracic back pain, bilateral shoulder pain from shoulder grooving from the weight of her breasts on her bra straps, and inframammary intertrigo for which she uses powders for relief. She denies any trauma to her breasts. Denies any nipple discharge. She has been seeing a physical therapist for the past year for her neck and back pain without much relief in her painful symptomatology. Her last mammogram was done on 02/13/20. It showed there are scattered areas of fibroglandular density. There are no dominant masses or suspicious calcifications. Denies family history of breast cancer. She has Medicare, therefore there is no preoperative medical approval for the procedure. The surgery is scheduled for 02/19/20. PAST MEDICAL HISTORY Intertrigo Shoulder pain Chronic thoracic back pain Chronic neck pain Macromastia History of pulmonary embolism Anxiety Hypothyroidism Diastolic dysfunction Nonischemic cardiomyopathy Hyperlipidemia Essential (primary) hypertension Arthritis Depression Fatigue Obesity UTI (urinary tract infection) Varicose veins of both legs with edema PAST SURGICAL HISTORY hysterectomy ALLERGIES Iodinated Contrast Media [Iodinated Contrast Media - Oral and] Sulfa (Sulfonamide Antibiotics) MEDICATIONS Citalopram [Celexa] Levothyroxine [Synthroid] pyridoxine (vitamin B6) losartan-hydrochlorothiazide carvedilol simvastatin meloxicam Multivit-Min/FA/Lutein/Zeaxant [Macular Vitamin Tablet] FAMILY HISTORY Father - CAD (coronary artery disease), Myocardial infarction, High cholesterol, Hypertension Mother - Myocardial infarction, Heart disease Sister - Heart disease, Bleeding disorder, History of blood clots, Hypertension, High cholesterol SOCIAL HISTORY Smoking Status: Never smoker alcohol intake: never substance use type: does not use REVIEW OF SYSTEMS General - Denies fever, fatigue, and weight loss. Eyes - Denies cataracts and glaucoma. ENT - Denies nasal congestion and sore throat. Endocrine - Denies excessive thirst and urination. Skin - Denies suspicious lesions and skin cancer. Has inframammary intertrigo for which she uses powders for relief. Musculoskeletal - She has chronic neck and back pain. Denies any muscle weakness. Neuro - Denies headaches. Cardiovascular - Denies chest pain, fatigue, and shortness of breath with exertion. History of hypertension and hypercholesterolemia. Psych - History of anxiety. Respiratory - Denies chronic cough and shortness of breath. Gastrointestinal - Denies nausea, vomiting, diarrhea, and constipation. Hematologic - Denies abnormal bruising and bleeding. History of blood clots in bilateral lungs. Genitourinary - Denies hematuria, history of UTI. History of EVETTE. PHYSICAL EXAMINATION General - Alert and oriented. Patient's bra size is 40 DDD. HEENT - PERRL. EOMI. Throat is clear. Neck - Supple. No bony tenderness. There is some pericervical soft tissue tenderness. Lungs- Clear to auscultation. Heart - Regular rate and rhythm. Breasts - Patient has bilateral macromastia. No breast masses palpable. No axillary adenopathy noted. Distance from midclavicular line on the left to the nipple is 34 cm and from the nipple to the inframammary fold is 13 cm. Distance from midclavicular line on the right to the nipple is 33 cm and from nipple to the inframammary fold is 12 cm. Nipple areolar complex diameter is 8 cm bilaterally. No active inframammary intertrigo noted at this time. Abdomen - Soft and non distended. Back - No bony tenderness noted. There is perivertebral soft tissue tenderness in the upper thoracic area. Extremities - FROM. No axillary adenopathy. Radial pulses are palpable. There is some bilateral shoulder tenderness with shoulder grooving from the weight of her breasts on her bra straps. Neuro - CN II-XII grossly intact. Psych - Normal and mood and affect. ASSESSMENT 1. Bilateral macromastia. 2. Neck pain. 3. Thoracic back pain. 4. Bilateral shoulder pain from shoulder grooving from the weight of the breasts on her bra straps. 5. Inframammary intertrigo. PLAN Discussed with the patient the procedure of breast reduction mammoplasty. I feel this procedure would be beneficial in this patient as it would help relieve her painful symptomatology. Patient had a mammogram on 02/13/20. It showed there are scattered areas of fibroglandular density. There are no dominant masses or suspicious calcifications. Postoperatively, she would get a breast reduction baseline mammogram at some point. I would remove approximately 700 grams of breast tissue per side. We will send the tissue to pathology for analysis to rule out carcinoma. Discussed with patient the extent of scarring for this procedure. The biggest risk for wound healing problems is the T-zone area. Usually wound care and sometimes antibiotics are necessary for healing in this area. She would have drains in for a few days depending on the amount of tissue that is removed. She will be on antibiotics until the drains are removed. In general, the final breast size ranges from a high B to low C cup. Patient voices concern that she would like to be more of a low B cup. Surgery will be done under general anesthesia with a surgical observation overnight stay in the hospital. We typically write a letter to her insurance carrier for medical approval. She has Medicare for her primary insurance so this is not necessary as they don't provide preoperative medical approval. Patient was informed of the risks and complications of the procedure including alternatives to surgery. These were discussed with her personally. She voices understanding and wishes to proceed. Some of the risks and complications were included in a form from the [employer]. Patient's preop questions were answered personally and to her satisfaction. Consents have been signed. Surgery is scheduled for 02/19/20. We discussed the current risks associated with COVID-19. While it is understood that there is a community spread of COVID-19, the risk of krystian COVID-19 while at [facility] ([facility]) is very low; however, the risk cannot be completely mitigated because of the community spread of the disease. We discussed in detail the risk of exposure to and/or potential harm posed by the COVID-19 virus with having a surgery/procedure at this time versus the risk of delaying the surgery/procedure. It is not possible to know either the risk of delaying the surgery or procedure or chance of getting an infection with perfect accuracy, but a joint decision was made to proceed at this time with the scheduled surgery/procedure as indicated on the consent form. Patient was notified that we will need to comply with any screening or testing [facility] wishes to perform or that surgery may be delayed for any positive results. Discussed with the patient that I was tested for COVID-19 on 01/17/20 which was negative and on 01/31/20 which was negative. My testing regimen at this time is to be COVID-19 tested every 2 weeks or so. I was recently tested on 02/14/20, and that test was negative. Procedure Criteria Procedure Type: Elective COVID Risk Discussion: The surgeon/proceduralist and patient have discussed in detail the risk of exposure to and/or potential harm posed by the COVID-19 virus with having a surgery/procedure at this time versus the risk of delaying the surgery/procedure. It is not possible to know either the risk of delaying the surgery or procedure or chance of getting an infection with perfect accuracy, but a joint decision was made between the patient and the surgeon/proceduralist to proceed at this time with the scheduled surgery/procedure as indicated on the consent form.
[2020-02-19] VITALS (11 sets, daily range): BP systolic 107–127; BP diastolic 54–83; PULSE 43–89; RESP 16–18; TEMP 36.1–37.3; O2SAT 94–98; BMI 37.8
--- NOTE | 2020-02-19 | BR_PTH ---
PATIENT: DANIELLE MUNOZ [place] [facility] [id number] AGE/SX: 69/F ROOM: RE02/19/[address]: Dr. Bryant Ruano MD : [id number] BED: DIS: 02/20/2020 SPEC #: [id number] RECD: 02/19/20 13:05 STATUS: HAYLEY BRENT #: [id number] GEGE: 02/19/20 00:[address]: Bryant Ruano DEPT: SURGICAL PATHOLOGY RECD BY: Garret Murry ENTERED: 02/19/20 13:05 SP TYPE: MAMOPLASTY OTHR DR: Dr. Codey Estrada DO Tissues: B - Right breast, NOS A - Left breast, NOS Procedures: Surgery Specimen Level IV HEADER OPERATION: Breast reduction PRE-OP DIAGNOSIS: Bilateral macromastia, neck pain, thoracic back pain, bilateral shoulder pain, inframammary intertrigo TISSUE SUBMITTED: A - Left breast tissue, B - Right breast tissue MICROSCOPIC DIAGNOSIS A. Left breast, reduction mammoplasty: Nonproliferative fibrocystic change with focal microcalcifications. Skin with no pathologic change. B. Right breast, reduction mammoplasty: Nonproliferative fibrocystic change. Skin with no pathologic change. AM:ines 02/21/20 MICROSCOPIC DESCRIPTION Slides are reviewed. GROSS DESCRIPTION A - Received in fixative is one container labeled with the patient's name and designated left breast tissue. The specimen consists of multiple irregular fragments of aguilar-yellow fibrofatty tissue ranging in size from 1 to 15 cm. The larger fragments contain adherent pink-aguilar skin with no cutaneous lesions. The specimen is aggregate weighs 1118 gm. Serial sections do not reveal mass lesions. The cut surfaces are yellow with focal white fibrous streaks. Railroad Detective sections are submitted in five cassettes. B - Received in fixative is one container labeled with the patient's name and designated right breast tissue. The specimen consists of multiple irregular fragments of aguilar-yellow fibrofatty tissue ranging in size from 1 to 14 cm. The larger fragments contain adherent pink-aguilar skin with no cutaneous lesions. The specimen is aggregate weighs 990 gm. Serial sections do not reveal mass lesions. The cut surfaces are yellow with focal white fibrous streaks. Railroad Detective sections are submitted in five cassettes. / AM:ines 02/20/20 TC:5 CPT: 89328 x2
[2020-02-19 06:16] LABS: Bedside Glucose 104 mg/dL (70-110)
[2020-02-19] MEDS: Acetaminophen 500 MG Tablet 1000 MG PO ×2 (06:25→23:17)
[2020-02-19] MEDS: Gabapentin 600 MG Tablet PO (06:26)
[2020-02-19] MEDS: Scopolamine 1mg/72hr Patch 1 PATCH TRANSDERM. (06:27)
[2020-02-19] MEDS: Lactated Ringers 1,000 ML 40 ML IV (06:35)
[2020-02-19] MEDS: Lactated Ringers 1,000 ML 60 ML IV (07:00)
[2020-02-19] MEDS: Cefazolin 2 GM in 0.9% Normal Saline 100 ML IV (07:41)
--- NOTE | 2020-02-19 12:26 | OP.PCM_ITS ---
Report of Operation Date of Procedure: 02/19/20 Pre-Operative Diagnosis: 1. Bilateral macromastia. 2. Neck pain. 3. T horacic back pain. 4. Bilateral shoulder pain from shoulder grooving from the weight of the breasts on her bra straps. 5. Inframammary intertrigo. Post-Operative Diagnosis: Same. Surgery/Procedure Performed:: Bilateral breast reduction mammaplasty. Description of Surgical Findings:: 69 year old woman presents with complaints of bilateral macromastia as well as associated painful symptomatology of neck pain, thoracic back pain, bilateral shoulder pain from shoulder grooving from the weight of her breasts on her bra straps, and inframammary intertrigo for which she uses powders for relief. She denies any trauma to her breasts. Denies any nipple discharge. She has been seeing a physical therapist for the past year for her neck and back pain without much relief in her painful symptomatology. Her last mammogram was done on 02/13/20. It showed there are scattered areas of fibroglandular density. There are no dominant masses or suspicious calcifications. Denies family history of breast cancer. Patient was informed of the risks and complications of the procedure including alternatives to surgery. These were discussed with the patient personally. Patient voices understanding and wishes to proceed. Some of the risks and complications were included in a form from the [employer]. IV Fluids - 1800 ml. Urine Output - 500 ml. Tissue removed from the left breast - 1022 grams. Tissue removed from the right breast - 932 grams. I used AmnioFill Placental Connective Tissue Powder, 500 mg, (I used 2 vials, one in each breast). Catalog Number - [id number]. Lot Number - [id number]. Expiration - September 15, 2024, (left breast). Catalog Number - [id number]. Lot Number - [id number]. Expiration - October 16, 2024, (right breast). I used Gagandeep absorbable hemostat, (I used 4 vials, 2 in each breast). Reference Number - [id number]. Lot Number - [id number]. Expiration - August 14, 2024. piece marker small arms: Cuong Harg[place]. Specimen's removed: 1. Left breast tissue to Pathology. 2. Right breast tissue to Pathology. Drains: Michael x2. (one in each breast). Estimated Blood Loss (mL): 150 ml. Fluids Replaced: 2300 ml (IV Fluids 1800 ml, Urine Output 500 ml). Description of Procedure: In the preop area, the patient was placed in the sitting position and preoperative markings were made. The sternum midline was marked down to the umbilicus. The inframammary folds were marked bilaterally. The midclavicular line was then marked down to the nipple, then from the nipple to the inframammary fold. The inframammary fold was then superimposed on the midclavicular line and I made a point 1 cm below that to be the new position of the nipple-areolar complex. 7 cm lines were then drawn divergent from that point to encompass the nipple-areolar complex. The distance between the divergent lines was 9 cm. The patient was then placed in the supine position and taken to the operating room and placed under general anesthesia and her breasts were prepped and draped in usual fashion. Ioban draping was also used. SCDs were placed for DVT prophylaxis. Perioperative antibiotics were given intravenously. A Magallon catheter was also placed. For the surgery I wore an N95 mask and wore proper eyewear protection. I then karla straight lines down from the lines drawn divergent around the nipple-areolar complex down to the inframammary fold. The width of the pedicle is 9 cm. I then used a 42 mm circular template for a new size of the nipple-areolar complex. The central markings were infiltrated with Xylocaine and epinephrine. The central skin was then deepithelialized. I started on the left side first and then went to the right side. I then mobilized medial and lateral breast flaps at the level of Humble's fascia down to about 1-2 cm from the chest wall. This was met in the midline of the breast with dissection at the level of Humble's fascia down to about 1-2 cm from the chest wall. Once the central breast mound pedicle was from the skin envelope, the reduction was then begun. Most of the tissue was removed from the superior aspect of the breast and the lateral aspect of the breast. I then sutured the leading edge of the medial and lateral breast flaps to the midline of the inframammary fold with 2-0 Vicryl suture. The vertical incision was approximated using surgical clips. The excess tissue from the medial and lateral breast flaps were excised and the horizontal incision was approximated using surgical clips. The patient was then placed in a sitting position. Using a vertical limb length of 4.5 cm, I karla the new position of the new nipple-areolar complexes on both breasts. They were in good position on the central aspect of the breast mound. Good symmetry was noted between the left breast and the right breast. Good shape and contour and projection was noted and appeared clinically to be a B cup. The patient was then placed back in the supine position and the surgical clips were removed. The breast wounds were then irrigated with Irrisept 0.05% Chlorhexidine solution which was followed by saline irrigation. Hemostasis was obtained using electrocautery. The tissue removed from the left breast was 1022 grams. The tissue removed from the right breast was 932 grams. The tissue that was removed from the breasts was sent to Pathology for analysis to rule out carcinoma. After hemostasis was obtained using electrocautery, I then sprayed Gagandeep absorbable hemostat into both breast wounds. I used 2 vials for each side. I then placed a size 15 Michael drain into each breast wound to be brought through the lateral aspect of the horizontal incision. I then closed the breast wounds by first approximating the leading edge of the medial and lateral breast flaps to the midline of the inframammary fold with 2-0 Vicryl suture. The deep dermis and subcutaneous tis billie of the vertical incision and the horizontal incisions were approximated using 3-0 Monocryl interrupted sutures. While these sutures were being placed, I placed AmnioFill placental connective tissue powder in the Tzone area to help promote healing in this area. I used 500 mg of AmnioFill for each breast at the Tzone area. The horizontal incision was then approximated using 4-0 V-Loc unidirectional barbed running subcuticular suture. I also placed a few 4-0 Prolene vertical mattress interrupted sutures at the level of the Tzone. The vertical incision was then closed on the skin with 4-0 Prolene interrupted sutures. With a vertical limb length of 4.5 cm, I karla a circular incision where the nipple-areolar complex would be brought through this keyhole incision. Incisions were made and the nipple areolar complex was brought through the keyhole incision. The nipple-areolar complex was secured to the breast skin using 3-0 Monocryl interrupted sutures for deep dermis and subcutaneous tissue. The skin was approximated using 4-0 Prolene simple interrupted sutures. This was then covered with Histoacryl skin tissue adhesive. I sutured the drain to the skin using 3-0 nylon suture. At the end of the procedure, the breasts were soft with no evidence of vascular compromise. No evidence of hematomas were noted. The nipples were viable. I then dressed the breasts with a Kerlix gauze and a compression nitza wrap. Then patient tolerated the procedure well and will be sent to the recovery room in satisfactory condition. She will be admitted for surgical observation overnight stay. She will go home tomorrow once she is tolerating oral pain medication. I will remove the drains in a few days. She will keep her head elevated during the initial postoperative period. She will be maintained on a lifting restriction and keep her head elevated during the initial postoperative period. Post-discharge, she may get a compression sports bra as well. She will have the Magallon removed in the morning. She will be sent home on antibiotics and pain medicine. Sutures will be removed in 1-2 weeks. Grafts/Implants Used: AmnioFill Placental Connective tissue Powder. - Complications None. - Admit VTE Documentation VTE Present on Admission: No VTE Mechan Device Prophylaxis: SCD's VTE Pharm Prophylaxis ordered?: Yes Surgery Charges CPT - 51605 ICD-10 - N62, M54.2, M54.6, M25.519, L30.4 42913-02 N62, M54.2, M54.6, M25.519, L30.4
[2020-02-19] MEDS: Ondansetron ODT 4 MG Tablet PO (17:40)
[2020-02-19] MEDS: Cefazolin 1 GM/50 ML BAG IV (22:54)
--- NOTE | 2020-02-19 23:06 | NURSING ---
Apical is 46 and slightly irreg. Left radial was 43 and regular.
[2020-02-19] MEDS: Docusate Sodium 100 MG Capsule PO (23:16)
[2020-02-19] MEDS: Atorvastatin Calcium 10 MG Tablet PO (23:16)
[2020-02-19] MEDS: Lactated Ringers 500 ML IV.SOLN. 250 ML IV (23:22)
[2020-02-19] MEDS: Lactated Ringers 1,000 ML 75 ML IV (23:36)
[2020-02-20 01:03] VITALS: BP 101/60; PULSE 40; RESP 16; TEMP 36.6; O2SAT 95
--- NOTE | 2020-02-20 01:12 | NURSING ---
scopolamine patch removed and discarded in sharps container
--- NOTE | 2020-02-20 01:30 | NURSING ---
CPS here to do EKG since pt is bradycardic.
--- NOTE | 2020-02-20 01:58 | EKG12_ITS ---
Test Reason : BRADYCARDIA Blood Pressure : / mmHG Vent. Rate : 079 BPM Atrial Rate : 079 BPM P-R Int : 172 ms QRS Dur : 092 ms QT Int : 422 ms P-R-T Axes : 019 003 055 degrees QTc Int : 483 ms Sinus rhythm with frequent Premature ventricular complexes in a pattern of bigeminy Low voltage QRS Borderline ECG When compared with ECG of 19-OCT-2018 07:51, Premature ventricular complexes are now Present Confirmed by COLETTE MUÑOZ, CAMERON ([id number]), managing editor TERESA RIOS ([id number]) on 02/26/2020 10:52:36 AM Referred By: Bryant Ruano Confirmed By:CAMERON ALVARENGA MD
[2020-02-20 04:05] VITALS: BP 105/57; PULSE 67; RESP 18; TEMP 36.4; O2SAT 94
[2020-02-20 05:38] LABS: Hematocrit 32.6 % (37-47); Hemoglobin 11.1 g/dL (12.0-15.0); Mean Corpuscular Hgb 32.6 pg (27.0-32.0); Mean Corpuscular Volume 95.9 fL (81-99); Mean Platelet Vol. 9.7 fl (6.2-12.0); Platelet Count 162 K/mm3 (150-450); RBC Distribution Width CV 12.7 % (11.6-14.6); RBC Distribution Width SD 44.3 fl (35.1-43.9); White Blood Count 11.7 K/mm3 (4.4-11.0)
[2020-02-20 06:01] LABS: Anion Gap 5 (5-15); BUN 14 mg/dL (7-18); BUN/Creat Ratio 17.2 RATIO (10-20); Calcium,Total 7.9 mg/dL (8.5-10.1); Chloride 104 mmol/L (98-107); Creatinine, Serum 0.81 mg/dL (0.55-1.02); EST Glomerular Filtration Rate 75 mL/min (>60); Est Glom Filt Rate - Afr Amer 90 mL/min (>60); Glucose 115 mg/dL (74-106); Prealbumin 21.5 mg/dL (20.0-40.0); Sodium Level 137 mmol/L (136-145)
[2020-02-20] MEDS: Acetaminophen 500 MG Tablet 1000 MG PO (06:35)
[2020-02-20] MEDS: Levothyroxine 50 MCG Tablet PO (06:35)
[2020-02-20] MEDS: Cefazolin 1 GM/50 ML BAG IV ×2 (06:35→13:29)
[2020-02-20 07:23] VITALS: O2SAT 95
[2020-02-20] MEDS: Enoxaparin 40 MG/0.4 ML Syringe SC (08:47)
[2020-02-20] MEDS: Citalopram 20 MG Tablet PO (08:47)
[2020-02-20] MEDS: hydroCHLOROthiazide 12.5mg 12.5 MG PO (08:47)
[2020-02-20] MEDS: Pyridoxine HCl 100 MG Tablet PO (08:47)
[2020-02-20] MEDS: Gabapentin 100 MG Capsule 200 MG PO ×2 (08:47→11:08)
[2020-02-20] MEDS: Docusate Sodium 100 MG Capsule PO (08:47)
[2020-02-20] MEDS: Meloxicam 15 MG Tablet PO (08:48)
[2020-02-20] MEDS: Losartan Potassium 50 MG Tablet PO (08:48)
[2020-02-20] MEDS: Carvedilol 3.125 MG TABLET PO (08:48)
[2020-02-20] MEDS: Ensure Surgery 237 ML LIQUID PO ×2 (08:48→11:10)
[2020-02-20] MEDS: Multivitamin (Healthy Eyes) Capsule 1 CAP PO (08:48)
[2020-02-20 08:54] VITALS: BP 99/46; PULSE 62; RESP 16; TEMP 36.8; O2SAT 96
[2020-02-20 14:14] VITALS: BP 94/46; PULSE 52; RESP 16; TEMP 36.6; O2SAT 96
--- NOTE | 2020-02-20 14:31 | PCM.PN.SRG ---
Subjective: Postop #1 Patient is resting comfortably. Patient had pulse rates in the high 40's and 50's last night. She was asymptomatic. - Physical Exam Vitals/I&O's: Vital Signs Temp Pulse Resp BP Pulse Ox 97.9 F 52 L 16 94/46 L 96 02/20/20 14:14 02/20/20 14:14 02/20/20 14:14 02/20/20 14:14 02/20/20 14:14 Oxygen Flow Rate (L/min) 6 Oxygen Delivery Method Room Air Weight: 220 lb 7.396 oz Body Mass Index (BMI) 37.8 Intake and Output for Last 24 Hours 02/18/20 02/19/20 02/20/20 23:59 23:59 23:59 Intake Total 2663 / 3023 2852.50 / 2852.50 Output Total 1035 / 1235 2065 / 2065 Balance 1628 / 1788 787.50 / 787.50 Drainage 185 ml yesterday, 65 ml today. General: Alert, Oriented x3 HEENT: PERRLA, EOMI Oral: Moist Mucosa Neck: Supple Abdomen: Soft, Non-Distended Skin: Incision - bilateral breast incisions are dry and intact. Breasts are soft and symmetrical. Mild bruising on the skin flaps. Will observe. Good breast contour noted. Nipples are viable. No clinical evidence of hematoma. Neurological: Cranial nerves II-XII grossly intact Psych/Mental Status: Normal Affect, Appropriate Laboratory Results 02/20/20 05:26: WBC 11.7 H, RBC 3.40 L, Hgb 11.1 L, Hct 32.6 L, MCV 95.9, MCH 32.6 H, MCHC 34.0, RDW Std Deviation 44.3 H, RDW Coeff of Willis 12.7, Plt Count 162, MPV 9.7 02/20/20 05:26: Sodium 137, Potassium 4.0, Chloride 104, Carbon Dioxide 28.0, Anion Gap 5, BUN 14, Creatinine 0.81, Estim Creat Clear Calc 58.20, Est GFR (MDRD) Af Amer 90, Est GFR (MDRD) Non-Af 75, BUN/Creatinine Ratio 17.2, Glucose 115 H, Calcium 7.9 L, Prealbumin 21.5 Current Medications Acetaminophen (Tylenol) 1,000 mg PO Q6 [facility] Last Admin: 02/20/20 11:07 Dose: Not Given Documented by: Atorvastatin Calcium (Lipitor) 10 mg PO QHS [facility] Last Admin: 02/19/20 23:16 Dose: 10 mg Documented by: Carvedilol (Coreg) 3.125 mg PO BID [facility] Last Admin: 02/20/20 08:48 Dose: 3.125 mg Documented by: Citalopram Hydrobromide (Celexa) 20 mg PO DAILY [facility] Last Admin: 02/20/20 08:47 Dose: 20 mg Documented by: Docusate Sodium (Colace) 100 mg PO BID [facility] Last Admin: 02/20/20 08:47 Dose: 100 mg Documented by: Enoxaparin Sodium (Lovenox) 40 mg SC DAILY [facility] Last Admin: 02/20/20 08:47 Dose: 40 mg Documented by: Enteral Nutritional Formula (Ensure Surgery) 237 ml PO TIDCM [facility] Last Admin: 02/20/20 11:10 Dose: 237 ml Documented by: Gabapentin (Neurontin) 200 mg PO TIDCM [facility] Last Admin: 02/20/20 11:08 Dose: 200 mg Documented by: Hydrochlorothiazide () 12.5 mg PO DAILY [facility] Last Admin: 02/20/20 08:47 Dose: 12.5 mg Documented by: Hydromorphone HCl (Dilaudid Inj) 0.5 - 1 mg IV Q3H PRN PRN PRN Reason: Pain Score 6-10/10 Hydromorphone HCl (Dilaudid Inj) 0.5 - 1 mg IV Q3H PRN PRN PRN Reason: Pain Score 6-10/10 Lactated Ringer's () 1,000 mls @ 75 mls/hr IV .[id number] [facility] Last Infusion: 02/20/20 08:48 Dose: 0 mls/hr Documented by: Cefazolin Sodium () 1 gm in 50 mls @ 100 mls/hr IV Q8 [facility] Last Infusion: 02/20/20 13:59 Dose: Infused Documented by: Sodium Chloride () 250 mls @ 15 mls/hr IV .[id number] PRN PRN Reason: Saline Flush Sodium Chloride () 250 mls @ 15 mls/hr IV .[id number] PRN PRN Reason: Additional IVPB Infusion Insulin Human Lispro (Humalog Kwikpen ([facility])) 1 - 6 unit SC Q4H PRN PRN; Protocol PRN Reason: BG>/= 180, SEE PROTOCOL Levothyroxine Sodium (Synthroid) 50 mcg PO DAILY@0600 [facility] Last Admin: 02/20/20 06:35 Dose: 50 mcg Documented by: Losartan Potassium (Cozaar) 50 mg PO DAILY [facility] Last Admin: 02/20/20 08:48 Dose: 50 mg Documented by: Magnesium Oxide (Mag-Ox 400) 400 mg PO BID PRN PRN PRN Reason: Constipation Meloxicam (Mobic) 15 mg PO DAILY [facility] Last Admin: 02/20/20 08:48 Dose: 15 mg Documented by: Multivitamins/Minerals (Healthy Eyes ([facility])) 1 capsule PO DAILYCM [facility] Last Admin: 02/20/20 08:48 Dose: 1 capsule Documented by: Ondansetron HCl (Zofran Odt) 4 mg PO Q6H PRN PRN PRN Reason: NAUSEA Last Admin: 02/19/20 17:40 Dose: 4 mg Documented by: Oxycodone HCl (Oxyir) 5 - 10 mg PO Q4H PRN PRN PRN Reason: Pain Score 4-10/10 Pyridoxine HCl (Vitamin B-6) 100 mg PO DAILYCM [facility] Last Admin: 02/20/20 08:47 Dose: 100 mg Documented by: Sodium Chloride () 10 - 40 ml IV UD PRN PRN Reason: SALINE FLUSH Medical Necessity - Tobacco Use Smoking Status: Never smoker Tobacco Use: Non-smoker Assessment/Plan 1. Bilateral macromastia. 2. Neck pain. 3. Thoracic back pain. 4. Bilateral shoulder pain from shoulder grooving from the weight of the breasts on her bra straps. 5. Inframammary intertrigo. Patient is resting comfortably. She is asymptomatic. She had low pulse in the high 40's and 50's last night. She sees her Mold Making Supervisor twice a year. Her next appointment is the end of this month. I called their office to report her postop asymptomatic bradycardia. They stated the patient has had low pulse rates in the past secondary to some of her medication. They will let Dr. Iniguez know so he can further evaluate during the patient's appointment later this month. Breasts are soft and symmetrical. Good breast contour noted. Nipples are viable. Breast incisions are dry and intact. No clinical evidence of hematoma. Prealbumin was 21.5. Encourage nutritional supplementation with protein to help the healing process. Discharge home today. Wrote script for Cefadroxil until the drains are removed in the office. Wrote script for Percocet for pain (40 tabs). Keep head elevated. Continue lifting restriction. Continue nitza wrap for compression. Followup office Tuesday02/25/20 to remove the drains.
--- NOTE | 2020-02-20 14:43 | DCINST_ITS ---
You will use the following diet at home:: No restrictions, Other - encourage nutritional supplementation with protein to help the healing process. Discharge Activity: May not drive while taking narcotic pain medications., May Shower - after the drains are removed in the office. May shower in (days): 5 - after drains removed in the office. May resume sexual activity in: No Restrictions Weight Bearing Status: Weight bearing as tolerated Lifting Restrictions: 20 lbs. Keep extremity elevated above heart level: - - elevate head. Call your doctor if your incision/area has: Continuous Slow Oozing, Sudden Increased Bleeding, Increased Pain/ Swelling, Increased Redness, Foul Smelling Discharge, Swelling at the incision site, - - black nipples. Call your doctor if you observe: Fever of 101 or Higher, Coldness, Increased Pain, Shortness of breath, Chest pain, Calf discomfort, Uncontrolled pain Suture Line Care: - - dry dressnigs daily. Change Dressing in (Days):: 1 - dry dressings daily. Cleanse incision/area with: - - may get incisions wet in the shower after the drains are removed. Drain: Suction - fior drains x2 to bulb suction. empty and record output daily. Additional Instructions: She has an appointment with her Farm Demonstrator, Dr. Iniguez, later this month. She sees him twice a year. I contacted their office at discharge to let them know that her pulse was in the 50's during this hospital stay and she was asymptomatic. They will give him the message so he can address it at the patient's appointment. Allergies/Adverse Reactions: Allergies Iodinated Contrast Media [Iodinated Contrast Media - Oral and] Allergy (Verified 02/19/20 06:06) Itching Sulfa (Sulfonamide Antibiotics) Allergy (Verified 02/19/20 06:06) Unknown Medications to take at Discharge Citalopram [Celexa] 20 mg PO DAILY 11/03/13 Levothyroxine [Synthroid] 50 mcg PO DAILY 08/25/16 pyridoxine (vitamin B6) 100 mg tablet 100 mg PO DAILY 06/19/18 losartan 50 mg-hydrochlorothiazide 12.5 mg tablet 1 tab PO DAILY #90 tab 06/25/19 carvedilol 3.125 mg tablet 3.125 mg PO BID #180 tab 09/06/19 simvastatin 20 mg tablet 20 mg PO QPM #90 tab 09/06/19 meloxicam 15 mg tablet 15 mg PO DAILY 12/28/19 Multivit-Min/FA/Lutein/Zeaxant [Macular Vitamin Tablet] 1 ea PO DAILY 02/12/20 Cefadroxil [Duricef] 500 mg PO BID #10 cap 02/20/20 Docusate Sodium [Colace] 100 mg PO BID capsule 02/20/20 Ensure Surgery 237 ml PO TIDCM liquid 02/20/20 Lactobacillus Acidophilus/Fos [Acidophilus Probiotic Tablet] 1 ea PO BID #20 tab 02/20/20 Losartan Potassium [Cozaar] 50 mg PO DAILY tablet 02/20/20 Oxycodone HCl/Acetaminophen [Percocet 5/325] 1 tablet PO Q4H PRN PRN 7 Days #40 tablet 02/20/20 hydroCHLOROthiazide [Hydrochlorothiazide] 12.5 mg PO DAILY capsule 02/20/20 The following prescriptions were given: Lactobacillus Acidophilus/Fos [Acidophilus Probiotic Tablet] 1 ea PO BID #20 tab Transmission Status: Pending to [facility] Cefadroxil [Duricef] 500 mg PO BID #10 cap Transmission Status: Pending to [facility] 181 Oxycodone HCl/Acetaminophen [Percocet 5/325] 1 tablet PO Q4H PRN PRN 7 Days #40 tablet PRN Reason: Pain Score 4-5/10 Transmission Status: Sent to [facility] 1812 Primary Care Physician: Codey Estrada DO [Primary Care Provider] - Test Results: Test results from this visit will be discussed in further detail at your follow- up appointment, if applicable. Please Follow Up With: Bryant Ruano MD When: tuesday02/25/20. call [phone] for appt. Proposed Discharge Date: 02/20/20
== END 2020-02-20 16:00 | disposition home or self-care (01) ==
LOC: SDC 05:52 → AC 05:53 → MS3 02-20 07:33
PROVIDERS: Anesthesiology; PCP Family Medicine; Referring Provider Surgery; Visit Provider Surgery
PROC: 0H0U0ZZ Alteration of Left Breast, Open Approach (ICD-10-PCS; CPT 19318; principal; 2020-02-19 07:15)
DX: N62 Hypertrophy of breast (principal); N60.12 Diffuse cystic mastopathy of left breast; M54.2 Cervicalgia; M54.6 Pain in thoracic spine; M25.512 Pain in left shoulder; M25.511 Pain in right shoulder; G89.29 Other chronic pain; L30.4 Erythema intertrigo; I42.8 Other cardiomyopathies; I10 Essential (primary) hypertension; E78.00 Pure hypercholesterolemia, unspecified; F32.9 Major depressive disorder, single episode, unspecified; F41.9 Anxiety disorder, unspecified; E03.9 Hypothyroidism, unspecified; M19.90 Unspecified osteoarthritis, unspecified site; E66.9 Obesity, unspecified; R00.1 Bradycardia, unspecified; Z68.37 Body mass index [BMI] 37.0-37.9, adult; Z86.711 Personal history of pulmonary embolism; Z90.710 Acquired absence of both cervix and uterus; Z79.01 Long term (current) use of anticoagulants; Z79.1 Long term (current) use of non-steroidal anti-inflammatories (NSAID); Z79.899 Other long term (current) drug therapy; Z20.828 Contact with and (suspected) exposure to other viral communicable diseases
CPT/HCPCS: 00402; 19318; 36415; 80048; 82962; 83735; 84134; 85027; 87635; 88305; 93005; 94799; 99251; J7120; G0463; J2405; Q9968; U0003

== ENCOUNTER → 2020-03-12 | Outpatient (CLI) | payer MEDICARE, OTHER, SELFPAY ==
[2020-03-12 14:24] VITALS: BMI 37.8
== END | disposition home or self-care (01) ==
PROVIDERS: Visit Provider Nurse Practitioner Family
DX: N62 Hypertrophy of breast (principal); T81.89XA Other complications of procedures, not elsewhere classified, initial encounter
CPT/HCPCS: 87070; 87075; 87077; 87186; 87205

== ENCOUNTER → 2020-06-05 09:14 | Outpatient (CLI) | payer MEDICARE, OTHER, SELFPAY ==
[2020-04-23 10:58] VITALS: BMI 37.8
[2020-06-05 10:02] LABS: AST(SGOT) 26 U/L (15-37); Alanine Aminotransfer ALT/SGPT 35 U/L (13-56); Albumin, Serum 3.9 g/dL (3.2-5.0); Alkaline Phosphatase 42 U/L (45-117); Bilirubin, Direct 0.16 mg/dL (0.00-0.30); Cholesterol 152 mg/dL (200); Globulin 3.1 g/dL (2.2-4.2); High Density Lipoprotein 68 mg/dL; Triglycerides 76 mg/dL; Very Low Density Lipoprotein 15 mg/dL (5-40)
== END ==
PROVIDERS: Internal Medicine Cardiovascular Disease; PCP Family Medicine; Referring Provider Internal Medicine Cardiovascular Disease; Visit Provider Internal Medicine Cardiovascular Disease
DX: E78.5 Hyperlipidemia, unspecified (principal)
CPT/HCPCS: 36415; 80061; 80076

== ENCOUNTER → 2020-06-13 12:03 | Outpatient (CLI) | payer MEDICARE, OTHER, SELFPAY ==
[2020-04-23 10:58] VITALS: BMI 37.8
--- NOTE | 2020-06-13 12:04 | CT_ITS ---
STUDY: CT ABDOMEN AND PELVIS WITH CONTRAST REASON FOR EXAM: Female, 69 years old. LUQ PAIN X FEW MONTHS, SURG-HYSTER, BREAST REDUCTION, HTN, HX-PE RADIATION DOSAGE (If Supplied By Facility): CTDIvol = ( 14.38 ) mGy, DLP = ( 1002.06 ) mGycm TECHNIQUE: Transaxial images were obtained from the dome of the diaphragm to the symphysis pubis with oral contrast. 100 mL of IV ISOVUE-300 was administered. Sagittal and coronal images were reconstructed. Individualized dose optimization techniques were used for this CT. COMPARISON: None. FINDINGS: Minimal subpleural atelectases in left lower lobe. The visualized portions of the heart are within normal limits. Mild diffuse fatty infiltration of the liver. Normal gallbladder and extrahepatic biliary system. Normal spleen. Normal pancreas. Normal bilateral adrenal glands. Right kidney: Small nonenhancing posterior cortical cyst. No stones or hydronephrosis. Left kidney: Normal. No stones or hydronephrosis. Normal visualized stomach. Normal small intestine. Small diverticula along the sigmoid colon without diverticulitis. The appendix is visualized and appears normal. Few calcified plaques in the tortuous abdominal aorta but no abdominal aortic aneurysm or stenosis. Normal inferior vena cava. Normal retroperitoneum. Normal underdistended urinary bladder. Postsurgical absence of the uterus. Minimal umbilical hernia containing only adipose tissue. Pronounced disc space height narrowing at L2-L3, L3-L4 and L4-L5 disc space levels. Mild right lateral degenerative subluxation of L2 on L3. No acute osseous abnormality. CT/Abdomen/Pelvis WITH Contrast IMPRESSION: 1. Sigmoid diverticulosis without diverticulitis. 2. Small nonenhancing right posterior renal cortical cyst. 3. No CT evidence of stones in the kidneys, ureters and urinary bladder. 4. Mild diffuse hepatic steatosis. 5. Pronounced degenerative disc space height narrowing at L2-L3 disc space level with mild right lateral degenerative subluxation of L2 on L3. 6. Pronounced degenerative disc space height narrowing at L3-L4 and L4-L5 disc space levels. 7. Normal CT of the appendix. 8. Minimal subpleural atelectases in the left lower lobe. Electronically Signed: Nazario Hart MD at 15:14 EST , Service support ,
== END ==
PROVIDERS: PCP Family Medicine; Referring Provider Family Medicine; Visit Provider Family Medicine
DX: R10.12 Left upper quadrant pain (principal)
CPT/HCPCS: 74177; Q9967

== ENCOUNTER 2020-07-08 08:43 | Day surgery (SDC) | payer MEDICARE, OTHER, SELFPAY ==
[2020-07-02 09:10] VITALS: BMI 36.2
[2020-07-08] VITALS (7 sets, daily range): BP systolic 95–113; BP diastolic 52–73; PULSE 64–75; RESP 16–18; TEMP 36.1–36.7; O2SAT 93–96; BMI 37.3
--- NOTE | 2020-07-08 06:00 | HP_ITS ---
Intake Vital Signs 07/02/20 Height 5 ft 5 in 07/02/20 Weight: 218 lb 07/02/20 BMI 36.2 07/02/20 BP 137/82 H 07/02/20 Blood Pressure Location Rt brachial 07/02/20 Position Sitting 07/02/20 Respiration 18 07/02/20 Pulse 79 07/02/20 Pulse Source Monitor 07/02/20 Temp 97.1 F L 07/02/20 Temp Source Temporal 07/02/20 Pulse Oximetry (%) 94 07/02/20 Oxygen Delivery Method room air Intake Visit Reasons: C-Scope needs offce visit per CJ Chief Complaint: LUQ pain Able Bodied Tankerman Required: No Is patient in pain?: No Allergies Iodinated Contrast Media [Iodinated Contrast Media - Oral and] Allergy (Verified 07/02/20 09:11) Itching Sulfa (Sulfonamide Antibiotics) Allergy (Verified 07/02/20 09:11) Unknown Medications Levothyroxine [Synthroid] 50 mcg PO DAILY 08/25/16 [History Confirmed 07/02/20] meloxicam 15 mg tablet 15 mg PO DAILY 12/28/19 [History Confirmed 07/02/20] Multivit-Min/FA/Lutein/Zeaxant [Macular Vitamin Tablet] 1 ea PO DAILY 02/12/20 [History Confirmed 07/02/20] carvedilol 3.125 mg tablet 3.125 mg PO BID #180 tab 03/14/20 [Rx Confirmed 07/02/20] simvastatin 20 mg tablet 20 mg PO QPM #90 tab 03/14/20 [Rx Confirmed 07/02/20] losartan 50 mg-hydrochlorothiazide 12.5 mg tablet 1 tab PO DAILY #90 tab 06/24/20 [Rx Confirmed 07/02/20] citalopram 20 mg tablet 20 mg PO DAILY tab 07/02/20 [History Confirmed 07/02/20] omeprazole 40 mg capsule,delayed release 40 mg PO DAILY #60 cap 07/02/20 [Rx Confirmed 07/02/20] pyridoxine (vitamin B6) 500 mg capsule mg PO DAILY cap 07/02/20 [History] sucralfate 1 gram tablet 1 g PO QACHS #120 tab 07/02/20 [Rx Confirmed 07/02/20] PFSH Medical History Fat necrosis of left breast (Chronic) Atherosclerosis of coronary artery of [place] heart without angina pectoris (Chronic) Intertrigo (Chronic) Shoulder pain (Chronic) Chronic thoracic back pain (Chronic) Chronic neck pain (Chronic) Macromastia (Chronic) History of pulmonary embolism (Chronic) Anxiety (Chronic) Hypothyroidism (Chronic) Diastolic dysfunction (Chronic) Nonischemic cardiomyopathy (Chronic) Encounter for long-term current use of high risk medication (Chronic) Hyperlipidemia (Chronic) Essential (primary) hypertension (Chronic) Arthritis (Acute) Depression (Acute) Fatigue (Acute) Obesity (Acute) UTI (urinary tract infection) (Acute) Varicose veins of both legs with edema (Acute) Surgical History History of left heart catheterization (Chronic 08/26/16) History of bilateral breast reduction surgery (Acute) History of hysterectomy (Acute) Family History Father CAD (coronary artery disease) cabg Myocardial infarction Heart disease High cholesterol Hypertension Thyroid disorder Mother Myocardial infarction Sudden cardiac chf Heart disease Sister Heart disease Bleeding disorder History of blood clots Hypertension High cholesterol Social History (Updated 07/02/20 @ 09:[address] Ubaldo Pettit MD) Smoking Status: Never smoker alcohol intake: never substance use type: does not use caffeine: Yes Type: coffee Number of servings: 2 what type of physical activity do you participate in: none seatbelt use: always do you feel safe at home: Yes additional social history: DOES TAKE IBUPROFEN NEEDED HPI HPI HPI: DANIELLE MUNOZ, is a 69 F who presents to the office today for HPI HPI Surgical H&P: Yes HPI: DANIELLE MUNOZ, is a 69 F who presents to the office today for Left upper quadrant pain. The patient reports that she has been having left upper quadrant pain especially with eating for the last 8 months. No nausea or vomiting. There is no radiation of pain. She does not have any blood in her stool and her last colonoscopy was 6 years ago and was normal. ROS General General: No weight change, appetite, fatigue, colon cancer, breast cancer or weakness HEENT HEENT: No difficulty swallowing, eye injury, eye surgery, swollen glands or hoarseness Endo Endocrine: Yes thyroid disease; no diabetes mellitus, thyroid cancer, Hair loss, heat intolerance or cold intolerance Skin Skin: No rash or changing moles Breast Breast: No left breast lump, right breast lump, nipple discharge, breast pain, abnormal mammogram, abnormal US or breast enlargement Musc Musculoskeletal: Yes arthritis; no back problems, rheumatoid arthritis, gout or joint pain Cardio Cardiovascular: Yes high blood pressure; no murmur, pacemaker, heart disease, atrial fibrillation, heart attack, heart stent, palpitations, shortness of breat with exertion or chest pain Psych Psychiatric: Yes anxiety; no depression or hearing voices Resp Respiratory: No shortness of breath, No sleep apnea, Yes cough, No COPD, No asthma, No emphysema, No wheezing Gastro Gastrointestinal: Yes abdominal pain, No nausea or vomiting, Yes diarrhea, No constipation, No blood in stool, Yes acid reflux, No hemorrhoids, No ulcers, No gallbladder problem, No black,tarry stools Anam Hematologic: No blood thinners, No blood disorders, No bleeding, No anemia, Yes blood clots Neuro Neurologic: No system reviewed and no additional complaints, except as docu, No as per HPI, No abnormal walking, No abnormal hearing, No abnormal movements, No abnormal speech, No behavioral changes, No burning sensations, No confusion, No seizure-like activity, No unsteadiness, No dizziness, No localized weakness, No frequent falls, No headache(s), No lack of coordination, No loss of vision, No memory loss, No numbness, No other visual disturbances, No radiating pain, No restless legs, No sensory deficit, No fainting, No tingling, No tremor(s), No weakness, No other Exam Const General: cooperative Orientation: alert, oriented x3 Chest Breast Palpation: No nipple discharge Resp Effort & Inspection: normal respiratory effort Auscultation: clear to auscultation bilaterally Cardio Rate: regular rate Rhythm: regular rhythm Heart Sounds: no murmurs GI Inspection: non-distended Palpation: soft, tender in the LUQ Assessment & Plan Problems 1. LUQ pain R10.12 2. Gastroesophageal reflux disease, unspecified whether esophagitis present K21.9 Plan The patient is having left upper quadrant pain especially with eating. The patient had a recent CT scan which was essentially normal. I do not believe the patient is having musculoskeletal pain. There is no obvious mass in the colon as she had her last colonoscopy 6 years ago. I do believe that her symptoms are indicative of peptic ulcer disease. I would start the patient on a PPI and Carafate and perform an EGD for her. I explained endoscopy in detail to the patient. I explained the risks including but not limited to stroke or heart attack with anesthesia, perforation of the GI tract, bleeding, infection. I explained that any of these could necessitate further emergency surgery. The patient understands and all questions were answered sufficiently. The patient wishes to proceed with procedure. We discussed the current risks associated with COVID-19. While it is understood that there is a community spread of COVID-19, the risk of krystian COVID-19 while at [facility] ([facility]) is very low; however, the risk cannot be completely mitigated because of the community spread of the disease. We discussed in detail the risk of exposure to and/or potential harm posed by the COVID-19 virus with having a surgery/procedure at this time versus the risk of delaying the surgery/procedure. It is not possible to know either the risk of delaying the surgery or procedure or chance of getting an infection with perfect accuracy, but a joint decision was made to proceed at this time with the scheduled surgery/procedure as indicated on the consent form. Patient was notified that we will need to comply with any screening or testing [facility] wishes to perform or that surgery may be delayed for any positive results. Ubaldo Pettit MD Pager: [facility] [address] [place] [address], [address] [place] [address] Office: Orders Orders: EGD Today K21.9, R10.12 Medications New: omeprazole 40 mg PO DAILY 60 caps 1RF sucralfate (Carafate) 1 g PO QACHS 120 tabs 0RF Coding Level of Care Code Off vis,new,level 3 Diagnoses LUQ pain R10.12 Gastroesophageal reflux disease, unspecified whether esophagitis present K21.9 ??Esophagitis presence: esophagitis presence not specified I have re-examined the patient. There are no clinical changes since date of exam.
[2020-07-08] MEDS: Lactated Ringers 1,000 ML 100 ML IV (09:27)
--- NOTE | 2020-07-08 10:00 | IMM_PTH ---
PATIENT: DANIELLE MUNOZ LOC: EN U#:[id number] AGE/SX: 69/F ROOM: RE07/08/[address]: Dr. Ubaldo Pettit MD : 1950 BED: DIS: 07/08/2020 SPEC #: [id number] RECD: 07/08/20 13:49 STATUS: SKYLERTerry RESanju #: [id number] GEGE: 07/08/20 10:[address]: Ubaldo Pettit DEPT: IMMUNOHISTOCHEMISTRY RECD BY: Onelia Brunson ENTERED: 07/08/20 13:49 SP TYPE: IMMUNO OTHR DR: Dr. Codey Estrada DO Tissues: Stomach, NOS Procedures: H Pylori (initial) PHYSICIAN & INSTITUTION [place] [address] SPECIMEN INFORMATION: Tissue Source: Antrum biopsy Clinical Info: LUQ pain, GERD, esophagitis Specimen Number: [id number] CPT code: 03444 METHODOLOGY: Deparaffinized sections of prefer/formalin-fixed tissue or PAP/DQ stained slides are incubated with monoclonal/polyclonal antibodies/oligonucleotide probes. Localization is made via biotin free immunoperoxidase method. Appropriate controls are performed and reacted as expected. Results on target cell population are indicated in the following table: RESULTS: ANTIBODY / CLONE RESULT H Pylori (polyclonal) negative These tests were developed and their performance characteristics determined by [facility]. They may not have been cleared or approved by the U.S. Food and Drug Administration. The FDA has determined that such clearance or approval is not necessary. INTERPRETATION: Antrum, biopsy: Negative for Helicobacter pylori organisms. SJ:ines 07/09/20
--- NOTE | 2020-07-08 10:00 | EGD_PTH ---
PATIENT: DANIELLE MUNOZ LOC: EN U#:[id number] AGE/SX: 69/F ROOM: RE07/08/[address]: Dr. Ubaldo Pettit MD : 1950 BED: DIS: 07/08/2020 SPEC #: [id number] RECD: 07/08/20 10:59 STATUS: HAYLEY BRENT #: [id number] GEGE: 07/08/20 10:[address]: Ubaldo Pettit DEPT: SURGICAL PATHOLOGY RECD BY: Mayela Morfin ENTERED: 07/08/20 11:51 SP TYPE: EGD BIOPSY OTHR DR: Dr. Codey Estrada, DO Tissues: Gastric mucous membrane Procedures: Surgery Specimen Level IV HEADER OPERATION: EGD ([facility] [place]) PRE-OP DIAGNOSIS: LUQ pain; GERD; esophagitis TISSUE SUBMITTED: Antrum biopsy for H. pylori and path MICROSCOPIC DIAGNOSIS Antrum, biopsy: Mild gastritis. See microscopic description and comment. SJ:ines 07/09/20 COMMENT The results of immunohistochemistry for Helicobacter pylori will be reported separately ([id number]). MICROSCOPIC DESCRIPTION Slides are reviewed. The specimen shows fragments of gastric mucosa with chronic inflammatory cell infiltrates in the lamina propria consisting of lymphocytes and plasma cells, consistent with mild chronic gastritis. GROSS DESCRIPTION Received in fixative is one container labeled with the patient's name and designated antrum biopsy. The specimen consists of two irregular fragments of light aguilar soft tissue that in aggregate measure 0.5 x 0.2 x 0.1 cm. The specimen is totally submitted in one cassette. / TERRELL:ines 07/08/20 TC:3 CPT: 23892
--- NOTE | 2020-07-08 10:08 | OP.CCLET_ITS ---
07/08/2020 Codey Estrada [address] [place] [address] Re : Upper GI endoscopy procedure for Shawna Lopez Dear Dr. Estrada This procedure was performed on Wednesday, July 08, 2020. My impressions and recommendations are as follows: Impressions : - Bilious gastric fluid. Biopsied. - Normal esophagus. - Normal examined duodenum. Recommendations : - Discharge patient to home. - Resume previous diet. - Continue present medications. - Return to my office in 1 month. My findings are described in the full procedure note, which is enclosed. If I can be of further assistance, please feel free to contact me at Doctor phone number(s): , Work: . Sincerely, Ubaldo Pettit MD 07/08/2020 10:07:37 AM This report has been signed electronically.
--- NOTE | 2020-07-08 10:08 | OP.EGD_ITS ---
Patient Name: Shawna Lopez Procedure Date: 07/08/2020 9:52 AM Date of : 1950 Age: 69 Procedure: Upper GI endoscopy Indications: Abdominal pain in the left upper quadrant Providers: Ubaldo Pettit MD Referring MD: Codey Estrada Medicines: Monitored Anesthesia Care Patient Profile: This is a 69 year old female. Refer to note in patient chart for documentation of history and physical. Complications: No immediate complications. Estimated blood loss: Minimal. Procedure: Pre-Anesthesia Assessment: - Prior to the procedure, a History and Physical was performed, and patient medications and allergies were reviewed. The patient's tolerance of previous anesthesia was also reviewed. The risks and benefits of the procedure and the sedation options and risks were discussed with the patient. All questions were answered, and informed consent was obtained. Prior Anticoagulants: The patient has taken no previous anticoagulant or antiplatelet agents. After reviewing the risks and benefits, the patient was deemed in satisfactory condition to undergo the procedure. After obtaining informed consent, the endoscope was passed under direct vision. Throughout the procedure, the patient's blood pressure, pulse, and oxygen saturations were monitored continuously. The gastroscope was introduced through the mouth, and advanced to the second part of duodenum. The upper GI endoscopy was accomplished without difficulty. The patient tolerated the procedure well. Scope In: 10:02:04 AM Scope Out: 10:04:55 AM Total Procedure Duration Time 0 hours 2 minutes 51 seconds Findings: Bilious fluid was found in the stomach. Biopsies were taken with a cold forceps for Helicobacter pylori testing. The esophagus was normal. The examined duodenum was normal. Impression: - Bilious gastric fluid. Biopsied. - Normal esophagus. - Normal examined duodenum. Recommendation: - Discharge patient to home. - Resume previous diet. - Continue present medications. - Return to my office in 1 month. Procedure Code(s): --- Professional --- 06039, Esophagogastroduodenoscopy, flexible, transoral; with biopsy, single or multiple Diagnosis Code(s): --- Professional --- R10.12, Left upper quadrant pain CPT copyright 2017 [employer]. All rights reserved. The codes documented in this report are preliminary and upon warehouse representative review may be revised to meet current compliance requirements. Ubaldo Pettit MD 07/08/2020 10:07:37 AM This report has been signed electronically. Number of Addenda: 0 Note Initiated On: 07/08/2020 9:52 AM
== END 2020-07-08 10:55 | disposition home or self-care (01) ==
LOC: EN 08:45 → AC 08:45
PROVIDERS: PCP Family Medicine; Referring Provider Family Medicine; Visit Provider Surgery
PROC: 0DJ08ZZ Inspection of Upper Intestinal Tract, Via Natural or Artificial Opening Endoscopic (ICD-10-PCS; CPT 43235; principal; 2020-07-08 09:55)
DX: K29.70 Gastritis, unspecified, without bleeding (principal); K21.9 Gastro-esophageal reflux disease without esophagitis; R10.12 Left upper quadrant pain; I25.10 Atherosclerotic heart disease of native coronary artery without angina pectoris; I49.3 Ventricular premature depolarization; I42.8 Other cardiomyopathies; I10 Essential (primary) hypertension; E78.00 Pure hypercholesterolemia, unspecified; E03.9 Hypothyroidism, unspecified; M19.90 Unspecified osteoarthritis, unspecified site; F32.9 Major depressive disorder, single episode, unspecified; F41.9 Anxiety disorder, unspecified; E66.9 Obesity, unspecified; Z68.36 Body mass index [BMI] 36.0-36.9, adult; Z88.2 Allergy status to sulfonamides; Z79.1 Long term (current) use of non-steroidal anti-inflammatories (NSAID); Z79.899 Other long term (current) drug therapy; Z20.828 Contact with and (suspected) exposure to other viral communicable diseases
CPT/HCPCS: 43239; 87426; 88305; 88342; C9803; J7120; J2405

== ENCOUNTER → 2020-08-14 08:38 | Outpatient (CLI) | payer MEDICARE, OTHER, SELFPAY ==
[2020-08-07 09:44] VITALS: BMI 37.8
--- NOTE | 2020-08-14 08:40 | BI_ITS ---
MAMMOGRAPHY - BILATERAL DIAGNOSTIC REASON FOR EXAM: Female, 69 years old. Status post bilateral breast reduction with the palpable abnormality in the medial aspect of the left breast. PERTINENT HISTORY: Non-contributory. TECHNIQUE: Digital bilateral breast rosangela (3D mammographic acquisition) in the CC and MLO projections. 2-D mediolateral oblique (MLO) and craniocaudad (CC) views of both breasts were obtained. CAD: Full Field Digital Mammography with Computer Added Detection was performed. COMPARISON: Comparison is made with prior study dated 02/13/2020. FINDINGS: Breast Composition: There are scattered areas of fibroglandular density. There are no dominant masses or suspicious calcifications. Since prior study, the patient underwent bilateral breast reduction surgery. There is evidence of the skin thickening and postsurgical scarring along the medial aspect of the left breast corresponding to the palpable abnormality. Correlation with ultrasound is recommended. No other significant abnormalities are identified. BI/DIAG MAMM W/CAD, BILAT IMPRESSION: Status post bilateral breast reduction surgery with palpable lump in the medial aspect of the left breast. Correlation with ultrasound is recommended. ASSESSMENT CATEGORY: BIRADS Category 0: Incomplete. Need additional imaging evaluation. A letter regarding these results will be sent to the patient by the facility within 30 days. Approximately 10% of breast cancers are not detected by mammography. A normal mammogram should not delay biopsy of a clinically suspicious abnormality. Electronically Signed: Garrett Avila MD at 10:03 EST , Service support ,
--- NOTE | 2020-08-14 08:40 | US_ITS ---
STUDY: ULTRASOUND BREAST - LEFT REASON FOR EXAM: Female, 69 years old. Palpable abnormality in the medial aspect of the left breast following bilateral breast reduction surgery. TECHNIQUE: Axial and longitudinal images of the LEFT breast were performed with a high resolution ultrasound transducer. # OF IMAGES: 44 COMPARISON: Comparison is made with prior mammogram done earlier today. FINDINGS: LEFT Breast: The palpable abnormality corresponds to a 3.3 cm x 2.1 cm x 1.1 cm slightly hyper echoic nodule. This may represent an area of the fat necrosis following the surgery. There is also evidence of a 1.7 cm x 1.1 cm x 0.9 cm similar appearing nodule adjacent to this dominant nodule. US/Breast Limited Unilateral IMPRESSION: Findings suggestive of postoperative changes in the inferior medial portion of the left breast most likely representing areas of fat necrosis. ASSESSMENT CATEGORY: BIRADS Category 2: Benign. A letter regarding these results will be sent to the patient by the facility within 30 days. Electronically Signed: Garrett Avila MD at 15:02 EST , Service support ,
== END ==
PROVIDERS: PCP Family Medicine; Referring Provider Nurse Practitioner Family; Visit Provider Nurse Practitioner Family
DX: N63.20 Unspecified lump in the left breast, unspecified quadrant (principal); N64.1 Fat necrosis of breast; Z98.890 Other specified postprocedural states
CPT/HCPCS: 76641; 76642; 77062; 77066; G0279

== ENCOUNTER → 2020-10-02 09:43 | Outpatient (CLI) | payer MEDICARE, OTHER, SELFPAY ==
[2020-09-18 09:04] VITALS: BMI 36.9
--- NOTE | 2020-10-02 09:46 | CDU_ITS ---
Reason For Study: Dizziness Rt. Velocities/BP Lt. Velocities/BP Prox CCA 83.9/23.9 cm/sec. Prox CCA 102.5/26.7 cm/sec. Mid CCA 87.8/30.4 cm/sec. Mid CCA 91.5/17.9 cm/sec. Dist CCA 81.2/25.2 cm/sec. Dist CCA 66.2/17.9 cm/sec. Prox ICA 64.5/17 cm/sec. Prox ICA 75.3/12.6 cm/sec. Mid ICA 70.6/28.9 cm/sec. Mid ICA 81.4/32.3 cm/sec. Dist ICA 104.7/32.2 cm/sec. Dist ICA 94.9/34.8 cm/sec. Rt. ICA/CCA = 1.2. Lt. ICA/CCA = 1.0. Prox ECA 149.9/20.4 cm/sec. Prox ECA 97.4/26.2 cm/sec. Rt. Vert. 67.4/17.9 cm/sec. Lt. Vert. 51.9/17.6 cm/sec. Right Extracranial There is homogeneous, smooth atherosclerotic plaque noted in the right common carotid artery. There is homogeneous, smooth atherosclerotic plaque noted in the right internal carotid artery. There is heterogeneous, irregular atherosclerotic plaque noted in the right external carotid artery. Antegrade flow is noted in the right vertebral artery. Left Extracranial There is homogeneous, smooth atherosclerotic plaque noted in the left common carotid artery. There is homogeneous, smooth atherosclerotic plaque noted in the left internal carotid artery. There is heterogeneous, irregular atherosclerotic plaque noted in the left external carotid artery. Antegrade flow is noted in the left vertebral artery. Procedure Carotid Duplex 01189. This is a Carotid Duplex examination using B-mode, color flow and specral Doppler. Exam performed in department. Interpretation Summary Mild (<50%) stenosis right extracranial internal carotid. Mild (<50%) stenosis left extracranial internal carotid. Flow within the vertebral arteries is antegrade bilaterally. Ordering Physician: Harjinder Dixon Referring Physician: Codey Estrada Performed By: Fatou Palmer RVT
== END ==
PROVIDERS: PCP Family Medicine; Referring Provider Nurse Practitioner Family; Visit Provider Nurse Practitioner Family
DX: I65.22 Occlusion and stenosis of left carotid artery (principal); R42 Dizziness and giddiness
CPT/HCPCS: 93880

== ENCOUNTER → 2020-11-24 09:34 | Outpatient (CLI) | payer MEDICARE, OTHER, SELFPAY ==
[2020-10-15 08:55] VITALS: BMI 37.4
--- NOTE | 2020-11-24 09:36 | US_ITS ---
STUDY: ULTRASOUND BREAST - LEFT REASON FOR EXAM: Female, 70 years old. Status post bilateral breast reduction surgery and possible fat necrosis. TECHNIQUE: Axial and longitudinal images of the LEFT breast were performed with a high resolution ultrasound transducer. # OF IMAGES: 51 COMPARISON: Comparison is made with prior sonogram of the left breast dated 08/14/2020. FINDINGS: LEFT Breast: There is a 2.1 cm x 2 cm x 1 cm heterogeneous nodular density at the 8 o''clock position of the breast at 5 cm from the nipple. Adjacent to this, there is a similar heterogeneous nodule measuring 1.1 cm x 0.7 cm x 0.9 cm. These have decreased in size as compared to prior study. US/Breast Limited Unilateral IMPRESSION: The previously seen heterogeneous nodular densities at the 8 o''clock position of the breast ultrasound is from the nipple decreased in size as described. Short-term follow-up is recommended. ASSESSMENT CATEGORY: BIRADS Category 3: Probably Benign - Short-Interval Follow-up Suggested. A letter regarding these results will be sent to the patient by the facility within 30 days. Electronically Signed: Garrett Avila MD at 14:38 EDT , Service support ,
== END ==
PROVIDERS: PCP Family Medicine; Referring Provider Surgery; Visit Provider Surgery
DX: N63.21 Unspecified lump in the left breast, upper outer quadrant (principal)
CPT/HCPCS: 76642

== ENCOUNTER 2021-03-20 18:16 | Emergency (ER) | payer MEDICARE, OTHER, SELFPAY ==
[2021-03-20 18:18] VITALS: BP 114/77; PULSE 77; RESP 18; TEMP 35.7; O2SAT 94; BMI 35.7
--- NOTE | 2021-03-20 18:40 | RAD_ITS ---
STUDY: X-RAY CHEST REASON FOR EXAM: Female, 70 years old. cough TECHNIQUE: Frontal portable view of the chest COMPARISON: 19 October 2018 FINDINGS: The lungs are clear and expanded. There is no demonstrated pleural abnormality. Normal size heart. Normal mediastinum and mayito. Normal visualized pulmonary arteries. Normal visualized aortic arch and descending thoracic aorta. Normal visualized thoracic spine. Normal visualized ribs, clavicles, and shoulders. There is no demonstrated abnormality of the visualized soft tissue structures of the upper abdomen. RAD/Chest 1 View (Portable) IMPRESSION: Normal x-ray examination of the chest. Electronically Signed: Bradley Monsalve MD at 19:07 EDT Tel , Service support ,
--- NOTE | 2021-03-20 18:46 | EX.ED.DYSGE1 ---
HPI History of Present Illness Chief Complaint: Shortness of Breath Informant: patient Onset/Context/Timing Onset: Today Context: Gradual Onset Timing: Continuous Quality: Aching Location: Generalized Worsened by: Nothing Relieved by: Aerosol, Tylenol Narrative Narrative: Patient presents with fever, aches, and shortness of breath that began this morning when she woke up. Patient states it is gradually gotten worse throughout the day. Patient states she feels aching all over. Patient states she took an aerosol at home which helped. Patient states she took Tylenol at home which helped. Patient states nothing makes it worse. Patient denies any exposures to COVID-19. Patient has not been vaccinated for COVID-19. Patient states her temperature at home was up to 101. Patient also admits to some rhinorrhea. [facility] Medical History Anxiety Arthritis Atherosclerosis of coronary artery of council heart without angina pectoris Chronic neck pain Chronic thoracic back pain Depression Diastolic dysfunction Encounter for long-term current use of high risk medication Essential (primary) hypertension Fat necrosis of left breast Fatigue History of bilateral breast reduction surgery History of pulmonary embolism Hyperlipidemia Hypothyroidism Intertrigo Left breast mass Macromastia Nonischemic cardiomyopathy Obesity Shoulder pain UTI (urinary tract infection) Varicose veins of both legs with edema Home Medications levothyroxine 50 mcg PO DAILY 08/25/16 [History Last Taken 07/08/20 07:00 50 MCG] meloxicam 15 mg tablet 15 mg PO DAILY 12/28/19 [History Last Taken Unknown] usgfxagj-gkr-DC-lut-zeaxanth 1 ea PO DAILY 02/12/20 [History Last Taken Unknown] losartan 50 mg-hydrochlorothiazide 12.5 mg tablet 1 tab PO DAILY #90 tab 06/24/20 [Rx Last Taken Unknown] citalopram 20 mg tablet 20 mg PO DAILY tab 07/02/20 [History Last Taken Unknown] omeprazole 40 mg capsule,delayed release 40 mg PO DAILY #60 cap 07/02/20 [Rx Last Taken 07/08/20 07:00 40 MG] pyridoxine (vitamin B6) 500 mg capsule 500 mg PO DAILY cap 07/02/20 [History Last Taken Unknown] sucralfate 1 gram tablet 1 g PO QACHS #120 tab 07/02/20 [Rx Last Taken Unknown] simvastatin 20 mg tablet 20 mg PO QPM #90 tab 10/27/20 [Rx Last Taken Unknown] carvedilol 3.125 mg tablet 3.125 mg PO BID #180 tab 12/16/20 [Rx Last Taken Unknown] Allergy/AdvReac Type Severity Reaction Status Date / Time Iodinated Contrast Media Allergy Itching Verified 03/20/21 18:18 [Iodinated Contrast Media - Oral and] Sulfa (Sulfonamide Allergy Unknown Verified 03/20/21 18:18 Antibiotics) Family History Father CAD (coronary artery disease) cabg Myocardial infarction Heart disease High cholesterol Hypertension Thyroid disorder Mother Myocardial infarction Sudden cardiac chf Heart disease Sister Heart disease Bleeding disorder History of blood clots Hypertension High cholesterol Surgical History History of bilateral breast reduction surgery History of hysterectomy History of left heart catheterization (08/26/16) Social History Smoking Status: Never smoker alcohol intake: never substance use type: does not use caffeine: Yes Type: coffee Number of servings: 2 what type of physical activity do you participate in: none seatbelt use: always do you feel safe at home: Yes additional social history: DOES TAKE IBUPROFEN NEEDED ROS ROS ED Constitutional Constitutional ED: Denies chills or fever(s) Eyes Eyes: Denies blurry vision or change in vision ENT ENT ED: Reports rhinorrhea; Denies sore throat Cardiovascular Cardiovascular: Reports chest pain; Denies palpitations Respiratory/Chest Respiratory/Chest: Reports cough and dyspnea Gastrointestinal Gastrointestinal: Denies nausea or vomiting Genitourinary Genitourinary ED: Denies dysuria or hematuria Musculoskeletal Musculoskeletal: Reports myalgias and neck pain; Denies back pain Integumentary Denies abscess or rash Neurologic Neurologic: Reports headache(s); Denies weakness Allergic/Immunologic Allergic/Immunologic ED: Denies mouth swelling or urticaria EXAM Physical Exam Const Vital Signs: 03/20/21 18:18 03/20/21 18:50 03/20/21 19:15 Temperature 96.2 F L Temperature Source Temporal Pulse Rate 77 76 Respiratory Rate 18 16 Respiratory Effort Short of Breath Respiratory Pattern Normal Tachypnea Blood Pressure 114/77 Blood Pressure Mean 89 Pulse Ox 94 Oxygen Delivery Method Room Air Room Air Positive well nourished and well developed General Appearance ED: well developed HEENT Reports moist mucous membranes Neck supple and no JVD Resp normal respiratory effort and clear to auscultation bilaterally Cardio regular rate, regular rhythm and no murmurs GI normal to inspection, nondistended, normoactive bowel sounds and non-tender Palpation: soft Extremity normal to inspection General Extremety ED: Negative for edema or tenderness General Extremity: Negative for edema Neuro oriented x3, CN's II-XII intact bilaterally and no sensory deficits noted Sensorium / Orientation: alert Motor Exam: strength 5/5 throughout Psych mental status grossly normal Skin no rashes or lesions noted MDM MDM MDM Narrative Medical decision making narrative: COVID-19 rapid antigen was obtained and was positive. CBC shows a white blood cell count of 3.9. Comprehensive metabolic profile was essentially within normal limits. Lactate was normal. Portable 1 view chest x-ray was obtained. On my interpretation, lung rose are clear. There is normal cardiac silhouette. Bony thorax is normal. There is no acute process noted. Radiologist also interpreted the x-ray and agrees. Patient was given 4 puffs of an albuterol inhaler here. Patient is feeling better on reevaluation. Patient was advised of her findings. Patient meets criteria for outpatient monoclonal antibody infusion. Patient was given referral for this. Patient was instructed to follow-up with her primary care physician in 5 to 7 days. Patient understood and was agreeable with the plan. All questions were answered. Lab Data Attestation: I reviewed the patient's lab results. Labs: Laboratory Results - last 24 hr 03/20/21 03/20/21 03/20/21 18:35 18:35 18:55 WBC 3.9 L RBC 4.19 L Hgb 13.3 Hct 38.8 MCV 92.6 MCH 31.7 MCHC 34.3 RDW Std Deviation 42.3 RDW Coeff of Willis 12.4 Plt Count 159 MPV 9.6 Immature Gran % (Auto) 0.500 Neut % (Auto) 66.4 Lymph % (Auto) 20.4 [place]bon % (Auto) 10.9 H Eos % (Auto) 1.3 Baso % (Auto) 0.5 Absolute Neuts (auto) 2.6 Absolute Lymphs (auto) 0.80 L Nucleated RBC % 0 Sodium 134 L Potassium 3.8 Chloride 100 Carbon Dioxide 27.0 Anion Gap 7 BUN 19 H Creatinine 0.82 Estim Creat Clear Calc 59.09 Est GFR (MDRD) Af Amer 89 Est GFR (MDRD) Non-Af 74 BUN/Creatinine Ratio 23.2 H Glucose 105 Lactic Acid 0.9 Calcium 8.9 Total Bilirubin 0.70 AST 35 ALT 44 Alkaline Phosphatase 44 L Total Protein 6.9 Albumin 3.7 Globulin 3.2 Albumin/Globulin Ratio 1.2 Radiography Chest X-Ray - ED: 1 View, Read by ED Physician, Read by Radiologist and Normal Diagnostic Testing: Radiology Impression Chest X-Ray 03/20/21 18:40 IMPRESSION: Normal x-ray examination of the chest. Electronically Signed: Bradley Monsalve MD at 19:07 EDT Tel , Service support , Discharge Plan Triage Chief Complaint: Shortness of Breath Other Complaint: Headache ED Provider: Vinicio Sinclair Dx/Rx/DC Orders Clinical Impression: COVID-19 Instructions: Coronavirus Disease 2019 (COVID-19): Caring for Yourself or Others Prescriptions: No Action meloxicam 15 mg tablet 15 mg PO DAILY RF: 0 pyridoxine (vitamin B6) 500 mg capsule 500 mg capsule 500 mg PO DAILY RF: 0 sucralfate [Carafate] 1 gram tablet 1 g PO QACHS Qty: 120 RF: 0 omeprazole 40 mg capsule,delayed release(DR/EC) 40 mg PO DAILY Qty: 60 RF: 1 citalopram 20 mg tablet 20 mg PO DAILY RF: 0 levothyroxine 50 MCG tablet 50 mcg PO DAILY RF: 0 trvxcvfe-fti-PJ-lut-zeaxanth 1 EACH tablet 1 ea PO DAILY RF: 0 losartan-hydrochlorothiazide 50-12.5 mg tablet 1 tab PO DAILY Qty: 90 RF: 3 simvastatin 20 mg tablet 20 mg PO QPM Qty: 90 RF: 3 carvedilol 3.125 mg tablet 3.125 mg PO BID Qty: 180 RF: 3 Other Ambulatory Orders: COVID Outpatient Monoclonal Antibody Referral (Routine) Location: None Selected Ordered By: Dr. Vinicio Sinclair Primary Care Provider: Codey Estrada Referrals: Codey Estrada, [Primary Care Provider] - 3-5 Days Disposition Disposition: Home, Self Care
[2021-03-20 18:50] VITALS: PULSE 76; RESP 16
[2021-03-20 18:59] LABS: Absolute Neutrophil Count 2.6 X10^3/uL (2.0-7.7); Basophil# 0.02 X10^3/uL; Basophil% 0.5 % (0-1); Eosinophil# 0.05 X10^3/uL; Eosinophils% 1.3 % (0-5); Hematocrit 38.8 % (37-47); Hemoglobin 13.3 g/dL (12.0-15.0); Lymphocyte % 20.4 % (19-41); Mean Corp Hgb Conc 34.3 g/dL (32-36); Mean Corpuscular Hgb 31.7 pg (27.0-32.0); Mean Corpuscular Volume 92.6 fL (81-99); Mean Platelet Vol. 9.6 fl (6.2-12.0); Monocyte# 0.43 X10^3/uL; Monocyte% 10.9 % (0-10); NRBC Flagged by Analyzer 0 % (0-5); Neutrophil # 2.61 X10^3/uL (2.7-7.7); Neutrophil % 66.4 % (47-70); Platelet Count 159 K/mm3 (150-450); RBC Distribution Width CV 12.4 % (11.6-14.6); RBC Distribution Width SD 42.3 fl (35.1-43.9); Red Blood Count 4.19 M/mm3 (4.2-5.4); White Blood Count 3.9 K/mm3 (4.4-11.0)
[2021-03-20 19:16] LABS: ALB/GLOB Ratio 1.2 RATIO (0.9-2.4); AST(SGOT) 35 U/L (15-37); Alanine Aminotransfer ALT/SGPT 44 U/L (13-56); Albumin, Serum 3.7 g/dL (3.2-5.0); Alkaline Phosphatase 44 U/L (45-117); Anion Gap 7 (5-15); BUN 19 mg/dL (7-18); BUN/Creat Ratio 23.2 RATIO (10-20); Calcium,Total 8.9 mg/dL (8.5-10.1); Chloride 100 mmol/L (98-107); Creatinine, Serum 0.82 mg/dL (0.55-1.02); EST Glomerular Filtration Rate 74 mL/min (>60); Est Glom Filt Rate - Afr Amer 89 mL/min (>60); Estimated Creatinine Clearance 59.09 ml/min; Globulin 3.2 g/dL (2.2-4.2); Glucose 105 mg/dL (74-106); Potassium 3.8 mmol/L (3.5-5.1); Protein, Total 6.9 g/dL (6.4-8.2); Sodium Level 134 mmol/L (136-145)
[2021-03-20 19:41] LABS: Lactic Acid 0.9 mmol/L (0.4-1.9)
[2021-03-20 20:34] VITALS: BP 109/67; PULSE 78; RESP 17; O2SAT 97
== END 2021-03-20 20:35 | disposition home or self-care (01) ==
PROVIDERS: Emergency Provider Emergency Medicine; PCP Family Medicine
DX: U07.1 COVID-19 (principal); F41.9 Anxiety disorder, unspecified; M19.90 Unspecified osteoarthritis, unspecified site; I25.10 Atherosclerotic heart disease of native coronary artery without angina pectoris; F32.9 Major depressive disorder, single episode, unspecified; I10 Essential (primary) hypertension; E78.5 Hyperlipidemia, unspecified; E03.9 Hypothyroidism, unspecified; Z79.899 Other long term (current) drug therapy
CPT/HCPCS: 36415; 71045; 80053; 83605; 85025; 87040; 87426; 94640; 99285; A4216

== ENCOUNTER 2021-03-27 14:24 | Outpatient (CLI) | payer MEDICARE, OTHER, SELFPAY ==
[2021-03-27 14:40] VITALS: BP 111/75; PULSE 79; RESP 16; TEMP 37.4; O2SAT 95; BMI 34.9
[2021-03-27] MEDS: 0.9% Saline Lock 10 ML Syringe IV (14:44)
[2021-03-27 15:30] VITALS: BP 95/78; PULSE 69; RESP 16; TEMP 37.3; O2SAT 97
[2021-03-27 16:30] VITALS: BP 117/74; PULSE 73; RESP 16; TEMP 37.6; O2SAT 98
== END 2021-03-27 16:30 | disposition home or self-care (01) ==
LOC: MS2OUT 14:25 → MS2 14:25
PROVIDERS: PCP Family Medicine; Referring Provider Nurse Practitioner Acute Care; Visit Provider Nurse Practitioner Acute Care
DX: U07.1 COVID-19 (principal)
CPT/HCPCS: J7050; M0243; A4216; Q0244

== ENCOUNTER → 2021-06-26 08:43 | Outpatient (CLI) | payer MEDICARE, OTHER, SELFPAY ==
--- NOTE | 2021-06-26 08:46 | US_ITS ---
STUDY: ULTRASOUND BREAST - LEFT REASON FOR EXAM: Female, 70 years old. Palpable lump left breast. TECHNIQUE: Axial and longitudinal images of the LEFT breast were performed with a high resolution ultrasound transducer. # OF IMAGES: 46 COMPARISON: Comparison is made with prior mammogram done earlier in the day as well as prior sonogram of the left breast dated 11/24/2020 FINDINGS: LEFT Breast: There is a 1.4 cm x 2.1 cm x 0.9 cm heterogeneously solid nodule at the 8 o''clock position of the breast at 5 sinuses from the nipple. Adjacent to this, there is a similar appearing nodule measuring 1.3 cm x 0.9 cm x 0.6 cm. These are at the operative site and may represent postoperative scarring and/or necrosis. US/Breast Limited Unilateral IMPRESSION: Stable examination. ASSESSMENT CATEGORY: BIRADS Category 4: Suspicious - Biopsy Should Be Considered. A letter regarding these results will be sent to the patient by the facility within 30 days. Electronically Signed: Garrett Avila MD at 10:29 EST , Service support ,
--- NOTE | 2021-06-26 08:46 | BI_ITS ---
MAMMOGRAPHY - BILATERAL DIAGNOSTIC REASON FOR EXAM: Female, 70 years old. Palpable lump in the left breast. Prior breast reduction surgery. PERTINENT HISTORY: Non-contributory. TECHNIQUE: Digital bilateral breast rosangela (3D mammographic acquisition) in the CC and MLO projections. 2-D mediolateral oblique (MLO) and craniocaudad (CC) views of both breasts were obtained. CAD: Full Field Digital Mammography with Computer Added Detection was performed. COMPARISON: Comparison is made with prior study dated 02/03/2021 and 02/13/2020. FINDINGS: Breast Composition: There are scattered areas of fibroglandular density. There are no dominant masses or suspicious calcifications. There is evidence of a stable skin thickening and postsurgical scarring along the medial aspect of the left breast. This corresponds to the patient''s palpable abnormality. This is unchanged. No other significant abnormalities are identified. There has been no significant change since the prior study. BI/DIAG MAMM W/CAD, BILAT IMPRESSION: Stable bilateral diagnostic mammogram. With the patient''s history of a palpable lump in the left breast, correlation with ultrasound is recommended. ASSESSMENT CATEGORY: BIRADS Category 0: Incomplete. Need additional imaging evaluation. A letter regarding these results will be sent to the patient by the facility within 30 days. Approximately 10% of breast cancers are not detected by mammography. A normal mammogram should not delay biopsy of a clinically suspicious abnormality. Electronically Signed: Garrett Avila MD at 10:06 EST , Service support ,
== END ==
PROVIDERS: PCP Family Medicine; Visit Provider Nurse Practitioner Family
DX: N63.24 Unspecified lump in the left breast, lower inner quadrant (principal); N64.1 Fat necrosis of breast
CPT/HCPCS: 76642; 77062; 77066; G0279

== ENCOUNTER → 2022-02-24 | Outpatient (CLI) | payer MEDICARE, OTHER, SELFPAY ==
[2022-02-24 07:59] LABS: AST(SGOT) 29 U/L (15-37); Alanine Aminotransfer ALT/SGPT 38 U/L (13-56); Albumin, Serum 3.7 g/dL (3.2-5.0); Alkaline Phosphatase 44 U/L (45-117); Bilirubin, Direct 0.16 mg/dL (0.00-0.30); Cholesterol 161 mg/dL (200); High Density Lipoprotein 62 mg/dL; Protein, Total 6.7 g/dL (6.4-8.2); Triglycerides 66 mg/dL; Very Low Density Lipoprotein 13 mg/dL (5-40)
== END | disposition home or self-care (01) ==
LOC: LAB 07:16
PROVIDERS: PCP Family Medicine; Referring Provider Internal Medicine Cardiovascular Disease; Visit Provider Internal Medicine Cardiovascular Disease
DX: E78.00 Pure hypercholesterolemia, unspecified (principal); I42.8 Other cardiomyopathies; I25.10 Atherosclerotic heart disease of native coronary artery without angina pectoris; I10 Essential (primary) hypertension
CPT/HCPCS: 36415; 80061; 80076

== ENCOUNTER → 2022-03-05 | Outpatient (CLI) | payer MEDICARE, OTHER, SELFPAY ==
--- NOTE | 2022-03-05 13:42 | ECHOD_ITS ---
Reason For Study: CMP Procedure This was a 2D Doppler, Color Flow transthoracic echocardiogram. The exam was of adequate technical quality. Exam performed in department. Left Ventricle Mildly dilated left ventricle. Left ventricular systolic function is normal. The estimated ejection fraction is 55 %. Diastolic function is indeterminate. No regional wall motion abnormalities noted. Right Ventricle Normal RV size. Normal systolic function. Atria Normal left atrium. Normal right atrium. No doppler evidence for ASD. Mitral Valve There is no mitral annular calcification. Normal mitral valve. Mild-Moderate (1-2+) mitral valve insufficiency. Tricuspid Valve Normal tricuspid valve. Mild eccentric tricuspid valve insufficiency. Unable to estimate RV systolic pressure due to insufficient tricuspid regurgitant envelope. Aortic Valve Trisinus/trileaflet aortic valve. Mild focal aortic valve calcification. Pulmonic Valve The pulmonic valve is not well visualized. Great Vessels Normal sized aortic root. Pericardium/Pleural No pericardial effusion. MMode/2D Measurements & Calculations LVIDd: 5.6 cm IVSd: 0.74 cm Ao root diam: 3.4 cm LVIDs: 4.2 cm LVPWd: 0.79 cm RVDd: 3.3 cm FS: 24.6 % LAV(MOD-bp): 36.5 ml LVAd ap4: 32.4 cm2 SV(MOD-sp4): 59.7 ml LAV(MOD-bp) Indexed: 18.1 ml/m2 LVLd ap4: 7.5 cm LAV(MOD-sp2): 41.5 ml EDV(MOD-sp4): 114.9 ml LAV(MOD-sp4): 29.1 ml EDV(sp4-el): 117.8 ml LVAs ap4: 20.3 cm2 LVLs ap4: 6.4 cm ESV(MOD-sp4): 55.1 ml ESV(sp4-el): 54.8 ml EF(MOD-sp4): 52.0 % EF(sp4-el): 53.5 % SV(sp4-el): 63.0 ml LA A4 area: 13.0 cm2 LA dimension(2D): 3.3 cm RA A4 area: 12.7 cm2 Time Measurements MV dec time: 0.25 sec Doppler Measurements & Calculations MV E max valente: 62.8 cm/sec Lat Peak E' Valente: 6.9 cm/sec Med Peak E' Valente: 5.0 cm/sec MV A max valente: 82.9 cm/sec E/E' lat: 9.0 E/E' med: 12.7 MV E/A: 0.76 MV V2 max: 84.0 cm/sec Ao V2 max: 147.1 cm/sec MV max P.8 mmHg MV dec slope: 249.3 cm/sec2 Ao max P.7 mmHg MV V2 mean: 47.7 cm/sec Ao V2 mean: 101.1 cm/sec MV mean P.0 mmHg Ao mean P.7 mmHg MV V2 VTI: 28.9 cm Ao V2 VTI: 31.6 cm LV V1 max: 120.3 cm/sec PA V2 max: 77.3 cm/sec LV V1 max P.8 mmHg LV V1 mean P.3 mmHg LV V1 mean: 86.2 cm/sec LV V1 VTI: 25.2 cm ECHO/Echo Complete Interpretation Summary Mildly dilated left ventricle. Left ventricular systolic function is normal. The estimated ejection fraction is 55 %. Mild-Moderate (1-2+) mitral valve insufficiency. Mild eccentric tricuspid valve insufficiency. Mild focal aortic valve calcification. Unable to estimate RV systolic pressure due to insufficient tricuspid regurgita nt envelope. Diastolic function is indeterminate. Ordering Physician: Triston Major Referring Physician: Triston Major Performed By: Tatiana Mcdermott RCS
== END | disposition home or self-care (01) ==
LOC: CVS 13:41
PROVIDERS: PCP Family Medicine; Referring Provider Internal Medicine Cardiovascular Disease; Visit Provider Internal Medicine Cardiovascular Disease
DX: I25.10 Atherosclerotic heart disease of native coronary artery without angina pectoris (principal); I42.8 Other cardiomyopathies; I10 Essential (primary) hypertension; E78.00 Pure hypercholesterolemia, unspecified; Z86.711 Personal history of pulmonary embolism
CPT/HCPCS: 93306

== ENCOUNTER 2022-05-19 05:20 | Day surgery (SDC) | payer MEDICARE, OTHER, SELFPAY ==
--- NOTE | 2022-05-11 09:55 | EKG12_ITS ---
Test Reason : PRE-OP Blood Pressure : / mmHG Vent. Rate : 069 BPM Atrial Rate : 069 BPM P-R Int : 172 ms QRS Dur : 088 ms QT Int : 412 ms P-R-T Axes : 039 -13 011 degrees QTc Int : 441 ms Normal sinus rhythm Normal ECG Confirmed by NAHID MUÑOZ, JANNA ([id number]), medical editor TERESA RIOS ([id number]) on 05/12/2022 11:05:37 AM Referred By: Bryant Ruano Confirmed By:AJNNA WHITFIELD MD
[2022-05-11 10:55] LABS: Hematocrit 39.2 % (37-47); Hemoglobin 13.3 g/dL (12.0-15.0); Mean Corp Hgb Conc 33.9 g/dL (32-36); Mean Corpuscular Hgb 32.2 pg (27.0-32.0); Mean Corpuscular Volume 94.9 fL (81-99); Mean Platelet Vol. 9.2 fl (6.2-12.0); Platelet Count 208 K/mm3 (150-450); RBC Distribution Width CV 12.3 % (11.6-14.6); RBC Distribution Width SD 43.3 fl (35.1-43.9); Red Blood Count 4.13 M/mm3 (4.2-5.4); White Blood Count 4.6 K/mm3 (4.4-11.0)
[2022-05-11 11:36] LABS: Anion Gap 5 (5-15); BUN 16 mg/dL (7-18); Calcium,Total 9.1 mg/dL (8.5-10.1); Chloride 105 mmol/L (98-107); Creatinine, Serum 0.73 mg/dL (0.55-1.02); EST Glomerular Filtration Rate 84 mL/min (>60); Est Glom Filt Rate - Afr Amer 102 mL/min (>60); Glucose 90 mg/dL (74-106); Magnesium 2.2 mg/dL (1.6-2.6); Potassium 4.1 mmol/L (3.5-5.1); Sodium Level 138 mmol/L (136-145); Thyroid Stim Hormone (TSH) 2.04 uIU/mL (0.358-3.74)
--- NOTE | 2022-05-18 16:48 | HP.PCM_ITS ---
History and Physical Date of Admission: 05/19/22 HISTORY OF PRESENT ILLNESS 71 year old woman presents? with a persistent left medial breast mass after a bilateral breast reduction mammaplasty on 02/19/20.? She comes in today for further evaluation of this mass. ? She had noticed this mass in the Fall and we have been monitoring it. She initially had a Mammogram on 08/14/20.? It showed there is evidence of the skin thickening and postsurgical scarring along the medial aspect of the left breast corresponding to the palpable abnormality.? Correlation with ultrasound is recommended. She had an Ultrasound on 08/14/20.? It showed the palpable abnormality corresponds to a 3.3 x 2.1 x 1.1 cm slightly hyper echoic nodule.? This may represent an area of the fat necrosis following the surgery.? There is also evidence of a 1.7 x 1.1 x 0.9 cm similar appearing nodule adjacent to this dominant nodule.? Findings suggestive of postoperative changes in the inferior medial portion of the left breast most likely representing areas of fat necrosis. She had a repeat Ultrasound on 11/24/20.? It showed a 2.1 x 2 x 1 cm heterogeneo us nodular density at the 8 o'clock position of the breast at 5 cm from the nipple.? Adjacent to this, there is a similar heterogenous nodule measuring 1.1 x 0.7 x 0.9 cm.? These have decreased in size as compared to prior study. Patient denies nipple discharge.? She was scheduled to have a repeat Ultrasound in March, but it was cancelled because she was hospitalized for COVID.? She had a Mammogram on 06/26/21.? It showed no dominant masses or suspicious calcifications.? She had an Ultrasound on 06/26/21.? It showed a 1.4 cm x 2.1 cm x 0.9 cm heterogenously solid nodule at the 8 oclock position of the breast at 5 cm from the nipple. ? Adjacent to this, there is a similar appearing nodule measuring 1.3? x 0.9 x 0.6 cm.? These are at the operative site and may represent postoperative scarring and/or necrosis.? The assessment stated BIRADS Category 4:? Suspicious - Biopsy should be considered.? She feels better today and presents for further evaluation and treatment. PAST MEDICAL HISTORY Anxiety Arthritis Atherosclerosis of coronary artery of [place] heart without angina pectoris Chronic neck pain Chronic thoracic back pain Depression Diastolic dysfunction Encounter for long-term current use of high risk medication Essential (primary) hypertension Fat necrosis of left breast Fatigue History of bilateral breast reduction surgery History of pulmonary embolism Hyperlipidemia Hypothyroidism Intertrigo Left breast mass Macromastia Nonischemic cardiomyopathy Obesity Shoulder pain UTI (urinary tract infection) Varicose veins of both legs with edema PAST SURGICAL HISTORY bilateral breast reduction surgery hysterectomy left heart catheterization (08/26/16) ALLERGIES Iodinated Contrast Media Sulfa (Sulfonamide Antibiotics) MEDICATIONS levothyroxine meloxicam citalopram pyridoxine (vitamin B6) simvastatin carvedilol losartan FAMILY HISTORY Father - CAD (coronary artery disease), Myocardial infarction, High cholesterol, Hypertension, Thyroid disorder Mother - Myocardial infarction, Heart disease Sister - Heart disease, Bleeding disorder, History of blood clots, Hypertension, High cholesterol SOCIAL HISTORY Smoking Status:? Never smoker alcohol intake:? never substance use type:? does not use REVIEW OF SYSTEMS General - Denies fever, fatigue, and weight loss. Eyes - Denies cataracts and glaucoma. ENT - Denies nasal congestion and sore throat. Endocrine - Denies excessive thirst and urination. Skin - Denies suspicious lesions and skin cancer. Incisions are healed.? She has a left medial breast mass. ? She had breast reduction surgery. Musculoskeletal -? Denies any muscle weakness.? Her chronic neck and back pain resolved with her breast reduction. Neuro - Denies headaches. Cardiovascular - Denies chest pain, fatigue, and shortness of breath with exertion. History of hypertension and hypercholesterolemia. Psych - History of anxiety. Respiratory - Denies chronic cough and shortness of breath. Gastrointestinal - Denies nausea, vomiting, diarrhea, and constipation. Hematologic - Denies abnormal bruising and bleeding. History of blood clots in bilateral lungs. Genitourinary - Denies hematuria, history of UTI.? History of EVETTE. ? PHYSICAL EXAMINATION General - Alert and oriented. HEENT - PERRL. EOMI. Throat is clear. Neck - Supple.? Nontender. Lungs- Clear to auscultation. Heart - Regular rate and rhythm. Breasts -? Her breast incisions are healed. ? Breasts are soft and symmetrical.? Nipples are viable. ? Good breast contour noted.? On the left medial breast is a palpable mass that measures? approximately 2 cm.? It is mobile.? Mass is nontender.? There is no skin retraction.? There is no skin dimpling.? There is no nipple discharge.? Recent mammogram and ultrasound showed postoperative changes consistent with fat necrosis.? Repeat ultrasound in Nov, 2020 showed a decrease in size. Abdomen - Soft and non distended. Extremities - FROM.? No axillary adenopathy.? Radial pulses are palpable. Neuro - CN II-XII grossly intact. Psych - Normal and mood and affect. ASSESSMENT 1.? 2 cm mass left medial breast. 2.? Fat necrosis. 3.? History of breast reduction bilateral breasts. PLAN Mammogram from 06/26/21 showed no dominant masses or suspicious calcifications? Correlation with ultrasound is recommended.? Ultrasound from 06/26/21 showed a 1.4 cm x 2.1 cm x 0.9 cm heterogenously solid nodule at the 8 oclock position of the breast at 5 cm from the nipple. ? Adjacent to this, there is a similar appearing nodule measuring 1.3? x 0.9 x 0.6 cm.? These are at the operative site and may represent postoperative scarring and/or necrosis.? The assessment stated BIRADS Category 4:? Suspicious - Biopsy should be considered.? Ultrasound from 11/24/20 was reviewed and discussed with the patient.? It showed? a 2.1 x 2 x 1 cm heterogeneous nodular density at the 8 o'clock position of the breast at 5 cm from the nipple.? Adjacent to this, there is a similar heterogenous nodule measuring 1.1 x 0.7 x 0.9 cm.? These have decreased in size as compared to prior study. Mammogram from 08/14/20 showed there is evidence of the skin thickening and postsurgical scarring along the medial aspect of the left breast corresponding to the palpable abnormality.? Correlation with ultrasound is recommended. Ultrasound from 08/14/20 showed the palpable abnormality corresponds to a 3.3 x 2.1 x 1.1 cm slightly hyper echoic nodule.? This may represent an area of the fat necrosis following the surgery.? There is also evidence of a 1.7 x 1.1 x 0.9 cm similar appearing nodule adjacent to this dominant nodule.? Findings suggestive of postoperative changes in the inferior medial portion of the left breast most likely representing areas of fat necrosis. This palpable mass representing postoperative fat necrosis is stable at this time.? There is no skin retraction.? There is no skin dimpling.? There is no nipple discharge. Encouraged patient to massage the area daily to help soften it. It has been over two years since her breast reduction surgery, and the persistent mass is unlikely to continue to get smaller because of scar tissue that forms over the fat necrosis mass. We will proceed with revision of her reconstructed breast with excision of the left medial breast mass.? Surgery will be done on an outpatient basis under general anesthesia.? Depending on the size of the cavity after the excision, a drain may be necessary for 7-10 days. Tissue that is removed will be sent to Pathology for analysis to rule out carcinoma and to Microbiology for culture. A positive culture will necessitate antibiotic therapy. Discussed with the patient that the surgery may lead to a contour deformity.? It will depend how much tissue needs to be excised. It was also discussed with the patient that the left breast mass should be removed so it doesn't interfere with breast cancer surveillance in the future. Patient voices understanding. Patient was informed of the risks and complications of the procedure including alternatives to surgery.? These were discussed with the patient personally.? Patient voices understanding and wishes to proceed. Some of the risks and complications were included in a form from the [employer] [employer]. Assessment & Plan Assessment/Plan (1) Left breast mass: (2) Fat necrosis of left breast: (3) History of bilateral breast reduction surgery:
[2022-05-19] MEDS: Gabapentin 600 MG Tablet PO (06:15)
[2022-05-19] MEDS: Lactated Ringers 1,000 ML 40 ML IV (06:15)
[2022-05-19] MEDS: Acetaminophen 500 MG Tablet 1000 MG PO (06:15)
[2022-05-19] MEDS: Scopolamine 1mg/72hr Patch 1 PATCH TD (06:16)
[2022-05-19 06:22] VITALS: BP 120/77; PULSE 65; RESP 17; TEMP 36.6; O2SAT 96; BMI 36.0
[2022-05-19 06:25] LABS: Bedside Glucose 99 mg/dL (74-106)
[2022-05-19] MEDS: Magnesium 1 GM over 15 mins IV (06:45)
--- NOTE | 2022-05-19 07:30 | BR_PTH ---
PATIENT: DANIELLE MUNOZ [place] [facility] [place][id number] AGE/SX: 71/F ROOM: RE05/19/[address]: Dr. Bryant Ruano MD : 1950 BED: DIS: 05/19/2022 SPEC #: [id number] RECD: 05/19/22 13:46 STATUS: HAYLEY RESanju #: [id number] GEGE: 05/19/22 07:[address]: Bryant Ruano DEPT: SURGICAL PATHOLOGY RECD BY: Mayela Morfin ENTERED: 05/20/22 09:01 SP TYPE: MAMOPLASTY OTHR DR: Dr. Codey Estrada, DO Tissues: Left breast, NOS Procedures: Surgery Specimen Level IV HEADER OPERATION: ERAS, excision breast mass PRE-OP DIAGNOSIS: Fat necrosis of left breast, history of bilateral breast reduction TISSUE SUBMITTED: Left breast mass MICROSCOPIC DIAGNOSIS Left breast mass, excision: Fat necrosis with associated reparative and reactive change. AM:ines 05/21/2022 MICROSCOPIC DESCRIPTION Slides are reviewed. GROSS DESCRIPTION Received in fixative is one container labeled with the patient's name and designated left breast tissue. The specimen consists of multiple irregular fragments of aguilar-yellow fibrofatty tissue ranging in size from 1 to 2.5 cm. The fragments are sectioned and totally submitted in two cassettes. / AM:ines 05/20/2022 TC:3 CPT:29544
[2022-05-19] MEDS: Cefazolin 2 GM in 0.9% Normal Saline 100 ML IV (07:40)
[2022-05-19] MEDS: Lidocaine 2% /Epi 1:100 (20ml) 20 ML VIAL (08:02)
[2022-05-19 09:15] VITALS: BP 120/77; BP 128/75; PULSE 70; RESP 12; TEMP 36.7; O2SAT 84
[2022-05-19 09:30] VITALS: BP 120/77; BP 125/69; PULSE 62; RESP 16; O2SAT 98
[2022-05-19 09:45] VITALS: BP 119/74; BP 120/77; PULSE 66; RESP 14; O2SAT 100
--- NOTE | 2022-05-19 09:49 | OP.PCM_ITS ---
Problems Associated Problem List Diagnoses (1) Left breast mass: (2) Fat necrosis of left breast: (3) History of bilateral breast reduction surgery: Report of Operation Date of Procedure: 05/19/22 Pre-Operative Diagnosis: 1.? 2 cm mass left medial breast. 2.? Fat necrosis. 3.? History of bilateral breast reduction mammaplasty. Post-Operative Diagnosis: Same. Surgery/Procedure Performed:: Excision 2 cm mass left medial breast. Description of Surgical Findings:: 71 year old woman presents? with a persistent left medial breast mass after a bilateral breast reduction mammaplasty on 02/19/20.? She comes in today for further evaluation of this mass. ? She had noticed this mass in the Fall and we have been monitoring it. She initially had a Mammogram on 08/14/20.? It showed there is evidence of the skin thickening and postsurgical scarring along the medial aspect of the left breast corresponding to the palpable abnormality.? Correlation with ultrasound is recommended. She had an Ultrasound on 08/14/20.? It showed the palpable abnormality corresponds to a 3.3 x 2.1 x 1.1 cm slightly hyper echoic nodule.? This may represent an area of the fat necrosis following the surgery.? There is also evidence of a 1.7 x 1.1 x 0.9 cm similar appearing nodule adjacent to this dominant nodule.? Findings suggestive of postoperative changes in the inferior medial portion of the left breast most likely representing areas of fat necrosis. She had a repeat Ultrasound on 11/24/20.? It showed a 2.1 x 2 x 1 cm heterogeneous nodular density at the 8 o'clock position of the breast at 5 cm from the nipple.? Adjacent to this, there is a similar heterogenous nodule measuring 1.1 x 0.7 x 0.9 cm.? These have decreased in size as compared to prior study. Patient denies nipple discharge.? She was scheduled to have a repeat Ultrasound in March, but it was cancelled because she was hospitalized for COVID.? She had a Mammogram on 06/26/21.? It showed no dominant masses or suspicious calcifications.? She had an Ultrasound on 06/26/21.? It showed a 1.4 cm x 2.1 cm x 0.9 cm heterogenously solid nodule at the 8 oclock position of the breast at 5 cm from the nipple. ? Adjacent to this, there is a similar appearing nodule measuring 1.3? x 0.9 x 0.6 cm.? These are at the operative site and may represent postoperative scarring and/or necrosis.? The assessment stated BIRADS Category 4:? Suspicious - Biopsy should be considered.? Patient was informed of the risks and complications of the procedure including alternatives to surgery. These were discussed with the patient personally. Patient voices understanding and wishes to proceed. Some of the risks and complications were included in a form from the [employer]. I used Gagandeep absorbable hemostat. Reference Number - [id number]. Lot Number - [id number]. Expiration - January 12, 2027. Surgeon: Bryant Ruano clinical mental health counselor: Kenya Herrera RNFA Type of Anesthesia: General Anesthesiologist: MD Lenny and Minerva Aquino CRNA Specimen's removed: Mass left medial breast to Pathology and to Microbiology. Drains: None. Estimated Blood Loss (mL): 10. Description of Procedure: Patient was taken to OR in supine position and was placed under general anesthesia. The left breast was prepped and draped in the usual fashion. SCD's were placed for DVT prophylaxis. Perioperative antibiotics were given intravenously. Using xylocaine with epinephrine, the medial horizontal scar and vertical scars were infiltrated. After waiting 5 minutes for the anesthetic to take effect, I made an incision through the medial aspect of the horizontal incision and the vertical incision up to the nipple of the left breast and dissected down to the breast tissue. A medial breast flap was elevated thus exposing the left breast mass. It was firm to palpation and well encapsulated with scar tissue. I carefully and sharply dissected the mass free from the s urrounding soft tissue. It was not adherent to the left medial breast flap. After excision of the mass, a small piece of tissue was sent to Microbiology for culture. A positive culture will necessitate antibiotic therapy. The rest of the mass was sent to Pathology for analysis to rule out carcinoma. After excision of the mass, the remaining soft tissue felt soft with no more residual fat necrosis present. The wound was irrigated with saline. Hemostasis was obtained with electrocautery. The wound was not deep enough to require the placement of a drain. I sprayed Gagandeep absorbable hemostat into the wound to help minimize seroma formation. I then closed the wound by approximating the leading edge of the medial breast flap to the intersection of the vertical and horizontal wound with 3-0 Vicryl interrupted suture. The deep dermis and subcutaneous tissue was approximated with 3-0 Monocryl interrupted sutures. The skin was approximated with 4-0 Prolene vertical mattress and simple interrupted sutures. This was followed by Histoacryl skin tissue adhesive. Kerlix gauze dressing was applied followed by ABD pads followed by a compression bra. Patient tolerated the procedure well and was sent to PACU in satisfactory condition. Patient will be sent home on antibiotics and pain medication. Patient will followup in a week for a wound check and for discussion of the Pathology report and the Microbiology report. A positive culture will necessitate antibiotic therapy. The sutures will be removed in two weeks. Grafts/Implants Used: Gagandeep. Procedure Start Time: 08:02 Procedure Stop Time: 09:02 Complications None. Admit VTE Documentation VTE Present on Admission: No VTE Mechan Device Prophylaxis: SCD's VTE Pharm Prophylaxis ordered?: No Addendum Addendum: Surgery Charges CPT - 95929 ICD-10 - N63.20, N64.1, Z98.890
--- NOTE | 2022-05-19 09:49 | DCINST_ITS ---
Discharge Instructions Diet Discharge Diet: No restrictions Activity Discharge Activity: May Not Drive (until seen in the office.), May Shower (in two days.) and - (no heavy lifting.) May shower in (days): 2 May resume sexual activity in: No Restrictions (keep compression bra on during activity.) Weight Bearing Status: Weight bearing as tolerated Lifting Restrictions: 20 lbs. Keep extremity elevated above heart level: - (elevate head.) Dressing / Incision Call your doctor if your incision/area has: Continuous Slow Oozing, Sudden Increased Bleeding, Increased Pain/ Swelling, Increased Redness, Foul Smelling Discharge and Swelling at the incision site Call your doctor if you observe: Fever of 101 or Higher, Coldness, Increased Pain, Shortness of breath, Chest pain, Calf discomfort and Uncontrolled pain Change Dressing in: 2 days (dry dressings daily.) Cleanse incision/area with: Soap & Water (may get incision wet in the shower in two days.) Follow Up Care Please Follow Up With: Bryant Ruano MD When: one week. call [phone] for appt. Test Results: Test results from this visit will be discussed in further detail at your follow- up appointment, if applicable. Discharge Plan Admission Primary Reason for Your Visit: excision left breast mass Attending Provider: Bryant Ruano Primary Care Provider: Codey Estrada Discharge Orders/Prescriptions Prescriptions: New amoxicillin-pot clavulanate [Augmentin] 500-125 mg tablet 1 tab PO BID Qty: 10 0RF oxycodone-acetaminophen [Percocet] 5-325 mg tablet 1 tab PO Q6H PRN (Reason: pain (scale score 7-10)) 5 Days Qty: 20 0RF Rx Instructions: 20 tabs (twenty) L.acidoph,saliva-B.bif-S.therm [Acidophilus Probiotic Blend] 175 mg capsule 1 cap PO DAILY Qty: 10 0RF Continued meloxicam 15 mg tablet 15 mg PO DAILY pyridoxine (vitamin B6) 500 mg capsule 500 mg capsule 500 mg PO DAILY citalopram 20 mg tablet 20 mg PO DAILY Label Comments: depression levothyroxine 50 MCG tablet 50 mcg PO DAILY losartan 50 mg tablet 50 mg PO DAILY carvedilol 3.125 mg tablet 3.125 mg PO BID Qty: 180 3RF Rx Instructions: give with food (meal/snack) simvastatin 20 mg tablet 20 mg PO QPM Qty: 90 3RF Referrals / Follow Up: Bryant Ruano MD [Med Staff - Active Staff] - (followup one week.) Codey Estrada DO [Primary Care Provider] - Disposition Disposition (needs filled in before D/C Order can be placed): Home, Self Care
[2022-05-19 10:04] VITALS: BP 120/77; BP 122/77; PULSE 62; RESP 16; TEMP 36.6; O2SAT 95
[2022-05-19 11:06] VITALS: BP 111/50; BP 120/77; PULSE 71; RESP 16; TEMP 36; O2SAT 95
== END 2022-05-19 11:27 | disposition home or self-care (01) ==
LOC: SDC 05:20 → AC 05:21
PROVIDERS: Anesthesiology; PCP Family Medicine; Referring Provider Surgery; Visit Provider Surgery
PROC: (CPT 19120; principal; 2022-05-19 07:15)
DX: N63.24 Unspecified lump in the left breast, lower inner quadrant (principal); I42.8 Other cardiomyopathies; N64.1 Fat necrosis of breast; I25.10 Atherosclerotic heart disease of native coronary artery without angina pectoris; I10 Essential (primary) hypertension; E78.00 Pure hypercholesterolemia, unspecified; E03.9 Hypothyroidism, unspecified; E66.9 Obesity, unspecified; Z68.36 Body mass index [BMI] 36.0-36.9, adult; Z98.890 Other specified postprocedural states; Z79.899 Other long term (current) drug therapy; Z86.16 Personal history of COVID-19
CPT/HCPCS: 19120; 00400; 36415; 80048; 82962; 83735; 84443; 85027; 87070; 87075; 87102; 87176; 87205; 87206; 88305; 93005; J7120; J2405; J3475

== ENCOUNTER → 2022-09-01 | Outpatient (CLI) | payer MEDICARE, OTHER, SELFPAY ==
[2022-09-01 10:06] LABS: AST(SGOT) 32 U/L (15-37); Alanine Aminotransfer ALT/SGPT 43 U/L (13-56); Albumin, Serum 3.8 g/dL (3.2-5.0); Alkaline Phosphatase 51 U/L (45-117); Bilirubin, Direct 0.21 mg/dL (0.00-0.30); Cholesterol 150 mg/dL (200); Globulin 3.2 g/dL (2.2-4.2); High Density Lipoprotein 71 mg/dL; Triglycerides 82 mg/dL; Very Low Density Lipoprotein 16 mg/dL (5-40)
== END | disposition home or self-care (01) ==
LOC: LAB 08:34
PROVIDERS: PCP Family Medicine; Referring Provider Physician Assistant Medical; Visit Provider Physician Assistant Medical
DX: E78.00 Pure hypercholesterolemia, unspecified (principal)
CPT/HCPCS: 36415; 80061; 80076

== ENCOUNTER → 2023-08-29 | Outpatient (CLI) | payer MEDICARE, OTHER, SELFPAY ==
--- NOTE | 2023-08-29 13:29 | RAD_ITS ---
STUDY: X-RAY - CERVICAL SPINE REASON FOR EXAM: Female, 72 years old. CERVALGIA TECHNIQUE: 6 view(s) of the cervical spine were obtained. COMPARISON: None FINDINGS: Normal anterior atlantoaxial articulation. Normal odontoid process. Straightening of the cervical lordosis. Degenerative changes of the vertebral bodies with spurring at the endplates. Slightly narrowed disc space heights. Uncovertebral spurring narrowing the right C3-4 intervertebral neural foramen. The soft tissue structures are unremarkable. RAD/Cerv Spine 4 or 5 Views IMPRESSION: Degenerative changes of the visualized cervical spine. Electronically Signed: Raul Mc DO at 17:14 EST Reading Location ID and State: [facility] / [place] Tel [phone], Service support ,
== END | disposition home or self-care (01) ==
PROVIDERS: PCP Family Medicine; Referring Provider Family Medicine; Visit Provider Family Medicine
DX: M50.30 Other cervical disc degeneration, unspecified cervical region (principal)
CPT/HCPCS: 72050

== ENCOUNTER 2023-10-10 10:30 | Outpatient (RCR) | payer MEDICARE, OTHER, SELFPAY ==
--- NOTE | 2023-09-06 15:57 | HP.PTEVAL_ITS ---
Patient's Visit Information Visit Information Visit Information: DANIELLE MUNOZ is a 72 year old F referred to Physical Therapy by Dr. Codey Estrada DO with a diagnosis of CERVICALALGIA. Date of Evaluation: 09/06/23 Physical Therapist: Bryant Robles PT, Cert MDT, OCS Visit Plan Frequency: 2x /Week Duration: 4 Weeks Plan: PT INTERVENTIONS MANUAL THERAPY CERVICAL TRACTION AND C1-5 MOBS /LATERAL GLIDES GRADE 2-3 ,CERVICAL ROM ,POSTURAL, EX'S MODALTIES US OKAY TO PROCEED WITH ICTX 16#-22# [id number] Subjective Subjective: This 72 y/o female presents to physical therapy with cervical pain. Patient has had cervical pain for 6months. Patient developed insidious onset neck pain. Patient seen Dr daley PT ,x-rays DDD spurs. No medication. Location of pain right > left neck with pain radiating right temporal region of head, Described as sharp pain when turning to right and occasional pain to shoulder. Aggravating factors turning neck ,driving ,holding book to read and lifting arms [place]. Alleviating rest. C/O paresthesia /tingling left arm right. Denies LUNDBERG/nausea/tinnitus/. Pain affects sleeping. Patient has seen chiropractor. Patient pain affects QOL and function /ADLS . Patient goals to decrease pain. SOCIAL: VOCATION: home Pain Bilateral Neck: Pain Intensity (Out of 10): 5 Pain Intensity Range: 10 Objective Objective: POSTURE: mild forward posture PALAPTION: tender UT/levator/paraspinals NEURO: c/o paresthesia/tingling left arm ,reflexes C5-6-7 1/ BUE: AROM WFL CERVICAL ROM: flexion min loss ,lateral flexion /rotation right mod/severe loss pain ,left min loss ,extension mod loss pain ,retraction min loss MMT: grossly 4/5 ,shoulders 4-/5 Special Tests C/S Radiculapathy - Left Upper limb tension test: Negative C/S Radiculapathy - Right Upper limb tension test: Negative C/S Radiculapathy - Left Spurlings: Negative C/S Radiculapathy - Right Spurlings: Positive C/S Radiculapathy - Left Cervical distraction: Negative C/S Radiculapathy - Right Cervical distraction: Negative C/S Radiculapathy - Left Relief test: Negative C/S Radiculapathy - Right Relief test: Negative Sharp Mckayla: Negative Vertebral Artery Test: Negative Alar Ligament Test: Negative Balance/Special Test Scores Oswestry Neck Score: 19 Goals Goal 1:: Patient to be I with HEP for cervical Goal Time Frame: 4-6 Weeks Goal 2:: Patient to improve cervical ROM for unction of recovery especially right side > left Goal Time Frame: 4-6 Weeks Goal 3:: Patient to demonstrate 50% improvement with decrease pain and improved function Goal Time Frame: 4-6 Weeks Goal 4:: Patient to improve neck oswestry score by 5 by points to improve QOL and function Goal Time Frame: 4-6 Weeks Goal 5:: Patient be able ton perform ADLS and housework tasks with min limitation's with improve ROM Rehabilitation Potential Physical Therapy Diagnosis: This patient has cervical pain worse right > left with possible stenosis with pain with loss of ROM to right affects ADLS and jonathon sework tasks thus benefit from skilled PT Rehabilitation Potential: Good Anticipated Interventions Patient/Client Instruction: Educate patient on: Condition and Plan of Care For the Purpose of:: To decrease pain, To increase ROM, To improve muscle performance and motor function, To increase tolerance to activity/condition/position, To improve ability of physical actions for home/community/work/leisure, To improve health of tissue, To decrease soft tissue restriction, To increase flexibility/ROM and To improve tolerance to ADL's Therapeutic Exercise to Include: Strength training, Postural training, Flexibilty training and Active ROM For the Purpose of:: To decrease pain, To improve muscle performance and motor function, To increase tolerance to activity/condition/position, To improve ability of physical actions for home/community/work/leisure, To improve health of tissue, To decrease soft tissue restriction, To increase flexibility/ROM, To improve health and function and To improve tolerance to ADL's Manual Therapy Techniques to Include: Mobilization and Soft tissue mobilization Comment: CERVICAL TRACTION ,MOBS C1-5 GRADE 2-3 For the Purpose of:: To decrease pain, To increase ROM, To improve health of tissue, To decrease soft tissue restriction and To increase flexibility/ROM TENS: Yes IF ES: Yes Cryotherapy (ice pack, ice massage): Yes Thermo therapy (hot pack): Yes Ultrasound (thermal/non thermal): Yes Intermittent cervical traction: Yes For the Purpose of:: To decrease pain, To increase ROM, To improve nutrient delivery to tissue, To increase oxygenation perfusion, To improve health of tissue, To decrease soft tissue restriction and To increase flexibility/ROM Text: Thank you for the opportunity to evaluate your patient. For Medicare and Medicare HMO plans, please review the plan of care and approve it. It will need to be FAXED BACK to us at [phone] for Medicare purposes. For Medicare only, by signing this I certify the plan of care. Please let me know if there are questions or concerns regarding this plan of care. Physician Signature: Date:
--- NOTE | 2023-11-09 08:55 | HP.PTDCSUM ---
Discharge Summary D/C summary: It has been my pleasure to treat DANIELLE MUNOZ referred by Dr. Codey Estrada DO, with the diagnosis of CERVICALALGIA for a total of 9 visit(s). Discharge Date: 10/10/23 Please see the following information for a summary of their discharge status. Subjective Subjective: BETTER WITH ROM WITH DRIVING Patient c/o pain with working all day like cooking feels more tightness Plan to see Pain Bilateral Neck: Pain Intensity (Out of 10): 1 Overall Improvement % Improvement: 75 Objective Objective/Function: POSTURE: mild forward posture PALAPTION: tender UT/levator/paraspinals NEURO: c/o paresthesia/tingling left arm ,reflexes C5-6-7 07/20 BUE: AROM WFL CERVICAL ROM: flexion min loss ,lateral flexion min loss ,rotation right min/mod loss pain , ,extension mod loss pain ,retraction min loss MMT: grossly 4/5 ,shoulders 4-/5 Goals Goal 1:: Patient to be I with HEP for cervical Goal Progress: Goal Met Goal 2:: Patient to improve cervical ROM for unction of recovery especially right side > left Goal Progress: Progressing Goal 3:: Patient to demonstrate 50% improvement with decrease pain and improved function Goal Progress: Goal Met Goal 4:: Patient to improve neck oswestry score by 5 by points to improve QOL and function Goal Progress: Goal Met Goal 5:: Patient be able ton perform ADLS and housework tasks with min limitation's with improve ROM Plan Plan: D/C RTD D/C Information d/c sentence: If there are questions or concerns regarding this patient's physical therapy, please feel free to call me at [phone]. Thank you for the referral of this patient. Sincerely, Bryant Robles, PT, Cert MDT, OCS Balance/Gait/Functional tests Balance/Special Test Scores Oswestry Neck Score: 10 Improvement % Improvement: 75
== END 2023-10-10 19:00 | disposition home or self-care (01) ==
LOC: PT 10:30
PROVIDERS: PCP Family Medicine; Referring Provider Family Medicine; Visit Provider Family Medicine
DX: M54.2 Cervicalgia (principal); M54.81 Occipital neuralgia
CPT/HCPCS: 97110; 97140; 97162; 97530

== ENCOUNTER → 2023-11-08 | Outpatient (CLI) | payer MEDICARE, OTHER, SELFPAY ==
[2023-11-08 12:19] LABS: Absolute Lymphocyte Count 1.37 X10^3/uL (0.83-4.51); Absolute Neutrophil Count 2.3 X10^3/uL (2.0-7.7); Basophil# 0.05 X10^3/uL; Basophil% 1.2 % (0-1); Eosinophil# 0.18 X10^3/uL; Eosinophils% 4.2 % (0-5); Hematocrit 38.7 % (37-47); Hemoglobin 12.7 g/dL (12.0-15.0); Lymphocyte # 1.37 X10^3/ul (0.83-4.51); Lymphocyte % 32.1 % (19-41); Mean Corp Hgb Conc 32.8 g/dL (32-36); Mean Corpuscular Hgb 31.1 pg (27.0-32.0); Mean Corpuscular Volume 94.9 fL (81-99); Monocyte# 0.33 X10^3/uL; Monocyte% 7.7 % (0-10); NRBC Flagged by Analyzer 0 % (0-5); Neutrophil # 2.33 X10^3/uL (2.7-7.7); Neutrophil % 54.6 % (47-70); Platelet Count 195 K/mm3 (150-450); RBC Distribution Width CV 12.6 % (11.6-14.6); RBC Distribution Width SD 43.9 fl (35.1-43.9); Red Blood Count 4.08 M/mm3 (4.2-5.4); White Blood Count 4.3 K/mm3 (4.4-11.0)
[2023-11-08 12:45] LABS: ALB/GLOB Ratio 1.2 RATIO (0.9-2.4); AST(SGOT) 30 U/L (15-37); Alanine Aminotransfer ALT/SGPT 42 U/L (13-56); Albumin, Serum 3.6 g/dL (3.2-5.0); Alkaline Phosphatase 44 U/L (45-117); Anion Gap 4 (5-15); BUN 16 mg/dL (7-18); Calcium,Total 9.2 mg/dL (8.5-10.1); Chloride 106 mmol/L (98-107); Cholesterol 184 mg/dL (200); EST Glomerular Filtration Rate 75 mL/min (>60); Est Glom Filt Rate - Afr Amer 91 mL/min (>60); Globulin 2.9 g/dL (2.2-4.2); Glucose 102 mg/dL (74-106); High Density Lipoprotein 60 mg/dL; Protein, Total 6.5 g/dL (6.4-8.2); Sodium Level 140 mmol/L (136-145); T4 Free Direct 1.27 ng/dL (0.76-1.46); Thyroid Stim Hormone (TSH) 3.02 uIU/mL (0.358-3.74); Triglycerides 93 mg/dL; Very Low Density Lipoprotein 19 mg/dL (5-40)
== END | disposition home or self-care (01) ==
LOC: BFHLAB 08:43
PROVIDERS: PCP Family Medicine; Referring Provider Family Medicine; Visit Provider Family Medicine
DX: I10 Essential (primary) hypertension (principal); E03.9 Hypothyroidism, unspecified; E78.5 Hyperlipidemia, unspecified
CPT/HCPCS: 36415; 80053; 80061; 84439; 84443; 85025

== ENCOUNTER → 2024-05-25 | Outpatient (CLI) | payer MEDICARE, OTHER, SELFPAY | END | disposition home or self-care (01) | LOC: OPBI 08:04 | PROVIDERS: PCP Family Medicine; Referring Provider Family Medicine; Visit Provider Family Medicine | DX: Z12.31 Encounter for screening mammogram for malignant neoplasm of breast (principal) | CPT/HCPCS: 77063; 77067 ==

== ENCOUNTER 2024-06-20 06:54 | Day surgery (SDC) | payer MEDICARE, OTHER, SELFPAY ==
--- NOTE | 2024-06-20 07:26 | PRE.ANES_ITS ---
ASA Classification* ASA Classification ASA Classification: 3 Assessment & Plan Anesthesia* Anesthesia Assessment Anesthesia Assessment: Discussed sedation and/or anesthesia options, risks, benefits, and alternatives with patient/parents/legal guardian/POA. Questions invited. The patient/parents/legal guardian/POA seems to understand and agrees to proceed with anesthesia plan. Reviewed the physical assessment, medical history, allergy history and patient home medications list prior to surgery/procedure/anesthetic and documented any changes. Performed airway and anesthesia risk assessments. Anesthesia Type Anesthesia Type: MAC Anesthesia Focused Assessment* Airway Assessment Mouth opens: >3 cm Mallampati Score: II Focused Labs Anesthesia Preop lab: CBC WBC 4.3 K/mm3 (4.4-11.0) L 11/08/23 08:44 RBC 4.08 M/mm3 (4.2-5.4) L 11/08/23 08:44 Hgb 12.7 g/dL (12.0-15.0) 11/08/23 08:44 Hct 38.7 % (37-47) 11/08/23 08:44 Plt Count 195 K/mm3 (150-450) 11/08/23 08:44 CHEMISTRY Potassium 4.0 mmol/L (3.5-5.1) 11/08/23 08:44 Sodium 140 mmol/L (136-145) 11/08/23 08:44 Magnesium 2.2 mg/dL (1.6-2.6) 05/11/22 09:50 BUN 16 mg/dL (7-18) 11/08/23 08:44 Creatinine 0.80 mg/dL (0.55-1.02) 11/08/23 08:44 Glucose 102 mg/dL (74-106) 11/08/23 08:44 POC Glucose 99 mg/dL (74-106) 05/19/22 06:02 TSH 3.02 uIU/mL (0.358-3.74) 11/08/23 08:44 COAG Pre-Assessment Diagnosis/Proposed Procedure Planned Operative Procedure(s): COLONOSCOPY Anesthesia History Anesthesia History - internal medicine specialist: Anesthesia History - internal medicine specialist Hx Hospitalization No 06/18/24 10:00 Any Problems With Anesthesia No 06/18/24 10:00 Cholinesterase deficiency No 06/18/24 10:00 You/Your Family Experience No 06/18/24 10:00 fever (hyperthermia) with Relationship Recent Exposure to Contagious No 05/19/22 06:22 Disease Does patient have nerve No 06/18/24 10:00 stimulator Patient instructed to have device shut off --Does patient have Pacemaker or ICD? When Was Last Pacemaker Check QUESTION #4 FULL TEXT: You/Your Family Experience fever (hyperthermia) with Anesthesia Last Oral Intake Last Oral intake: Last Oral Intake NPO since Meds taken in AM with sips of water? Meds patient instructed to take am of surgery PONV PONV - internal medicine specialist: PONV - internal medicine specialist Female Yes 06/18/24 10:00 HX of Motion Sickness No 06/18/24 10:00 HX of N/V After Surgery No 06/18/24 10:00 Non-Smoker Yes 06/18/24 10:00 Duration of Surgery greater No 06/18/24 10:00 than 60 minutes Number of Risk Factors 2 06/18/24 10:00 PONV Score Moderate Risk 06/18/24 10:00 Height & Weight Height & Weight: Anesthesia: Height & Weight Height 5 ft 5 in 05/23/24 08:25 Respiratory Assessment Respiratory Assessment - internal medicine specialist: Respiratory Tract Infection Hx - internal medicine specialist Hx Respiratory Tract Infection No 06/18/24 10:00 STOP Sleep Apnea STOP Sleep Apnea - internal medicine specialist: STOP Sleep Apnea - internal medicine specialist Hx Hypertension Yes 06/18/24 10:00 Hx Sleep Apnea No 06/18/24 10:00 CPAP No 05/19/22 09:15 BIPAP No 07/07/20 09:43 Do you snore loudly (louder No 06/18/24 10:00 than talking or can be heard Do you often feel tired/ No 06/18/24 10:00 fatigued/ sleepy during daytime? Has anyone observed you stop No 06/18/24 10:00 breathing during sleep? STOP Results Negative 06/18/24 10:00 QUESTION #5 FULL TEXT : Do you snore loudly (louder than talking or can be heard through closed doors)? Tobacco Use History Tobacco Use History - internal medicine specialist: Tobacco Use History - internal medicine specialist Tobacco Use Smoking Status Never smoker 06/18/24 10:00 Hx Tobacco Use No 06/18/24 10:00 Years Smoking Packs Smoked per Day Smoking Cessation Date was within the last 15 years Hx Smoking Cessation Date Hx Smoking Cessation Counseling Hematologic Medial History Hematologic Hx - internal medicine specialist: Hematologic Medical Hx - business economist Hx of Blood Transfusion No 06/18/24 10:00 Hx of Transfusion in last 3 No 06/18/24 10:00 Months Date of Last Transfusion (if within last 3 months) Ever experience any problems No 06/18/24 10:00 with transfusion(s)? Specify any problems Hx of Preganancy in last 3 No 06/18/24 10:00 Months Nurse Filling Out Transfusion [facility] 06/18/24 10:00 & Questions: Date: 06/18/24 06/18/24 10:00 Time: 10:08 06/18/24 10:00 Patient unable to answer at this time (ie. confused, unrespo /Reproduction History /Reproductive History - internal medicine specialist: /Reproductive Hx- internal medicine specialist Hx Now Gestational Age (in weeks): EDC: Hx Hx Para Hx Section SAB No 04/30/22 14:06 PFS Medical History PVCs (premature ventricular contractions) Wears glasses Anxiety Thyroid disease High cholesterol Pulmonary embolism Migraine headache Blackout History of diverticulitis Non-smoker History of edema Leg cramps History of stress test History of echocardiogram Hypertension Cardiology follow-up encounter History of irregular heartbeat History of bilateral breast reduction surgery Left breast mass Fat necrosis of left breast Atherosclerosis of coronary artery of [place] heart without angina pectoris Intertrigo Shoulder pain Chronic thoracic back pain Chronic neck pain Macromastia Arthritis History of pulmonary embolism Anxiety Obesity Varicose veins of both legs with edema Fatigue Hypothyroidism Diastolic dysfunction Nonischemic cardiomyopathy Encounter for long-term current use of high risk medication Hyperlipidemia Essential (primary) hypertension Home Medications ?Medication ?Instructions ?Recorded ?Last Taken ?Type levothyroxine 50 mcg tablet 50 mcg PO DAILY 08/25/16 07/08/20 07:00 History 50 MCG meloxicam 15 mg tablet 15 mg PO DAILY 12/28/19 Unknown History citalopram 20 mg tablet 20 mg PO DAILY 07/02/20 Unknown History pyridoxine (vitamin B6) 500 mg 500 mg PO DAILY 07/02/20 Unknown History capsule carvedilol 3.125 mg tablet 3.125 mg PO BID #180 tabs 12/07/21 Unknown Rx losartan 50 mg-hydrochlorothiazide 1 tab PO BID 05/08/24 Unknown History 12.5 mg tablet sydnkczf-jri-fmgyqw 5 mg-zeaxanth 2 cap PO DAILY 05/08/24 Unknown History 1 mg-bilberry 7.5 mg-herbal capsule ([facility] Formula) omeprazole 20 mg capsule,delayed 20 mg PO QDAY 05/08/24 Unknown History release red yeast rice 600 mg capsule 600 mg PO QDAY 05/08/24 Unknown History ezetimibe 10 mg tablet (Zetia) 10 mg PO QDAY #90 tabs 05/23/24 Unknown Rx Allergy/AdvReac Type Severity Reaction Status Date / Time Iodinated Contrast Media Allergy Itching Verified 05/23/24 08:57 (Iodinated Contrast Media - Oral and) Sulfa (Sulfonamide Allergy Itching Verified 05/23/24 08:57 Antibiotics) Family History Father CAD (coronary artery disease) cabg Myocardial infarction Heart disease High cholesterol Hypertension Thyroid disorder Mother Myocardial infarction Sudden cardiac chf Heart disease Sister Heart disease Bleeding disorder History of blood clots Hypertension High cholesterol Surgical History History of cardiac catheterization History of breast lump/mass excision Hx of colonoscopy History of esophagogastroduodenoscopy (EGD) History of left heart catheterization (08/26/16) History of bilateral breast reduction surgery History of hysterectomy Social History household members: spouse current occupational status: retired Smoking Status: Never smoker alcohol intake: never substance use type: does not use caffeine: Yes Type: coffee Number of servings: 2 what type of physical activity do you participate in: none seatbelt use: always do you feel safe at home: Yes additional social history: DOES TAKE IBUPROFEN NEEDED Review of Systems (Anesthesia) ROS Narrative System reviewed and no additional complaints, except as documented.
--- NOTE | 2024-06-20 07:48 | PCM.HP.STD ---
[facility] - General General Date of Service: 06/20/24 Chief Complaint: Screening colonoscopy [facility] Narrative DANIELLE MUNOZ, is a 73 F who presents today for screening colonoscopy. She had a colonoscopy last continues ago. She does not have any abdominal pain, cramping, chest pain or shortness of breath. Overall she is in very good health. [facility] Medical History PVCs (premature ventricular contractions) Wears glasses Anxiety Thyroid disease High cholesterol Pulmonary embolism Migraine headache Blackout History of diverticulitis Non-smoker History of edema Leg cramps History of stress test History of echocardiogram Hypertension Cardiology follow-up encounter History of irregular heartbeat History of bilateral breast reduction surgery Left breast mass Fat necrosis of left breast Atherosclerosis of coronary artery of [place] heart without angina pectoris Intertrigo Shoulder pain Chronic thoracic back pain Chronic neck pain Macromastia Arthritis History of pulmonary embolism Anxiety Obesity Varicose veins of both legs with edema Fatigue Hypothyroidism Diastolic dysfunction Nonischemic cardiomyopathy Encounter for long-term current use of high risk medication Hyperlipidemia Essential (primary) hypertension Home Medications ?Medication ?Instructions ?Recorded ?Last Taken ?Type levothyroxine 50 mcg tablet 50 mcg PO DAILY 08/25/16 07/08/20 07:00 History 50 MCG meloxicam 15 mg tablet 15 mg PO DAILY 12/28/19 Unknown History citalopram 20 mg tablet 20 mg PO DAILY 07/02/20 Unknown History pyridoxine (vitamin B6) 500 mg 500 mg PO DAILY 07/02/20 Unknown History capsule carvedilol 3.125 mg tablet 3.125 mg PO BID #180 tabs 12/07/21 Unknown Rx losartan 50 mg-hydrochlorothiazide 1 tab PO BID 05/08/24 Unknown History 12.5 mg tablet wuaihdkz-roz-rylbld 5 mg-zeaxanth 2 cap PO DAILY 05/08/24 Unknown History 1 mg-bilberry 7.5 mg-herbal capsule ([facility] Formula) omeprazole 20 mg capsule,delayed 20 mg PO QDAY 05/08/24 Unknown History release red yeast rice 600 mg capsule 600 mg PO QDAY 05/08/24 Unknown History ezetimibe 10 mg tablet (Zetia) 10 mg PO QDAY #90 tabs 05/23/24 Unknown Rx Allergy/AdvReac Type Severity Reaction Status Date / Time Iodinated Contrast Media Allergy Itching Verified 05/23/24 08:57 (Iodinated Contrast Media - Oral and) Sulfa (Sulfonamide Allergy Itching Verified 05/23/24 08:57 Antibiotics) Family History Father CAD (coronary artery disease) cabg Myocardial infarction Heart disease High cholesterol Hypertension Thyroid disorder Mother Myocardial infarction Sudden cardiac chf Heart disease Sister Heart disease Bleeding disorder History of blood clots Hypertension High cholesterol Surgical History History of cardiac catheterization History of breast lump/mass excision Hx of colonoscopy History of esophagogastroduodenoscopy (EGD) History of left heart catheterization (08/26/16) History of bilateral breast reduction surgery History of hysterectomy Social History household members: spouse current occupational status: retired Smoking Status: Never smoker alcohol intake: never substance use type: does not use caffeine: Yes Type: coffee Number of servings: 2 what type of physical activity do you participate in: none seatbelt use: always do you feel safe at home: Yes additional social history: DOES TAKE IBUPROFEN NEEDED ROS Review of Systems ROS Unobtainable: other Constitutional Constitutional: Denies fatigue, fever(s), poor appetite, weight gain or weight loss ENT HEENT: Denies mouth lesions Cardiovascular Cardiovascular: Denies abdominal bloating, abdominal edema or abdominal pain Respiratory/Chest Respiratory/Chest: Denies change in mental status, change in phlegm color, chest congestion or chest tightness Gastrointestinal Gastrointestinal: Denies belching, bloating, change in bowel habits, change in stool character, chewing difficulty, coffee ground emesis, constipation, cramping, diarrhea, dyspepsia, dysphagia, early satiety, excessive flatus, fecal incontinence, heartburn, hematemesis, hematochezia, hemorrhoids, loose stools, melena, nausea, odynophagia, rectal bleeding, tenesmus, vomiting or weight changes Genitourinary Genitourinary: Denies abdominal discomfort, burning urination or itching Musculoskeletal Musculoskeletal: Reports as per HPI; Denies muscle weakness or myalgias Integumentary Integumentary: Denies jaundice Neurologic Neurologic: Denies lack of coordination or weakness Psychiatric Psychiatric: Denies confusion, depression, memory loss, mood swings, paranoia or suicidal ideation Endocrine Endocrinology: Denies systems reviewed and no addt'l complaints, except as documented Hematologic/Lymphatic Hematologic/Lymphatic: Denies anemia, easy bleeding, easy bruising or lymphadenopathy Allergic/Immunologic Allergic/Immunologic: Denies systems reviewed and no addt'l complaints, except as documented Physical Exam Const alert General Appearance: cooperative Orientation / Consciousness: oriented to person HEENT hearing grossly normal bilaterally Head and Scalp: normal to inspection Face and Sinus: face symmetric Nose: external nose normal Mouth: oral and palatal mucosa normal Eyes conjunctivae normal General Eye: normal appearance of both eyes Neck full ROM General: normal visual inspection Lymph Lymphatic: no lymphadenopathy noted Chest inspection of chest normal and palpation of chest normal Chest: symmetrical chest wall rise Resp normal respiratory effort Effort and Inspection: able to speak in complete sentences Cardio regular rate GI non-distended Percussion: normal to percussion Rectal Exam: deferred Neuro Speech: speech normal Gait (Neuro): normal gait Assessment & Plan Assessment/Plan (1) Encounter for screening for malignant neoplasm of colon: PLAN: She was explained alternatives, risk, benefits including not withstanding bleeding, infection, sepsis, perforation, need for emergent urgent . She will have an ASA of 3.
--- NOTE | 2024-06-20 08:49 | OP.CCLET_ITS ---
06/20/2024 Codey Estrada [address] [place] [address] Re : Colonoscopy procedure for Shawna Lopez Dear Dr. Estrada This procedure was performed on Thursday, June 20, 2024. My impressions and recommendations are as follows: Impressions : - Diverticulosis in the recto-sigmoid colon, in the sigmoid colon and at the splenic flexure. - The examination was otherwise normal on direct and retroflexion views. - No specimens collected. Recommendations : - Discharge patient to home. - Resume previous diet. - Continue present medications. - Repeat colonoscopy in 10 years for screening purposes. My findings are described in the full procedure note, which is enclosed. If I can be of further assistance, please feel free to contact me at . Sincerely, Fan Friend, 06/20/2024 8:49:09 AM This report has been signed electronically.
--- NOTE | 2024-06-20 08:49 | OP.COLON_ITS ---
Patient Name: Shawna Lopez Procedure Date: 06/20/2024 8:24 AM Date of : 1950 Age: 73 Procedure: Colonoscopy Indications: Screening for colorectal malignant neoplasm Providers: Fan Baptiste DO Referring MD: Codey Estrada Medicines: Monitored Anesthesia Care Patient Profile: This is a 73 year old female. Refer to note in patient chart for documentation of history and physical. Last Colonoscopy: 10 years ago. Complications: No immediate complications. Procedure: Pre-Anesthesia Assessment: - Prior to the procedure, a History and Physical was performed, and patient medications and allergies were reviewed. The patient is competent. The risks and benefits of the procedure and the sedation options and risks were discussed with the patient. All questions were answered and informed consent was obtained. Patient identification and proposed procedure were verified by the physician in the pre-procedure area. Mental Status Examination: alert and oriented. Airway Examination: normal oropharyngeal airway and neck mobility. Respiratory Examination: clear to auscultation. CV Examination: normal. Prophylactic Antibiotics: The patient does not require prophylactic antibiotics. Prior Anticoagulants: The patient has taken no anticoagulant or antiplatelet agents except for NSAID medication. ASA Grade Assessment: II - A patient with mild systemic disease. After reviewing the risks and benefits, the patient was deemed in satisfactory condition to undergo the procedure. The anesthesia plan was to use monitored anesthesia care (MAC). Immediately prior to administration of medications, the patient was re-assessed for adequacy to receive sedatives. The heart rate, respiratory rate, oxygen saturations, blood pressure, adequacy of pulmonary ventilation, and response to care were monitored throughout the procedure. The physical status of the patient was re-assessed after the procedure. After I obtained informed consent, the scope was passed under direct vision. Throughout the procedure, the patient's blood pressure, pulse, and oxygen saturations were monitored continuously. The colonoscope was introduced through the anus and advanced to the cecum, identified by appendiceal orifice and ileocecal valve. The colonoscopy was performed without difficulty. The patient tolerated the procedure well. The quality of the bowel preparation was adequate. The ileocecal valve, appendiceal orifice, and rectum were photographed. Scope In: 8:34:48 AM Scope Withdrawal Time 0 hours 6 minutes 45 seconds Scope Out: 8:45:42 AM Total Procedure Duration Time 0 hours 10 minutes 54 seconds Findings: The perianal and digital rectal examinations were normal. A few small-mouthed diverticula were found in the recto-sigmoid colon, sigmoid colon and splenic flexure. The exam was otherwise without abnormality on direct and retroflexion views. Impression: - Diverticulosis in the recto-sigmoid colon, in the sigmoid colon and at the splenic flexure. - The examination was otherwise normal on direct and retroflexion views. - No specimens collected. Recommendation: - Discharge patient to home. - Resume previous diet. - Continue present medications. - Repeat colonoscopy in 10 years for screening purposes. Procedure Code(s): --- Professional --- G0121, Colorectal cancer screening; colonoscopy on individual not meeting criteria for high risk CPT copyright 2021 [employer]. All rights reserved. The codes documented in this report are preliminary and upon descriptive catalog librarian review may be revised to meet current compliance requirements. Fan Baptiste DO 06/20/2024 8:49:09 AM This report has been signed electronically. Number of Addenda: 0 Note Initiated On: 06/20/2024 8:24 AM
[2024-06-20 08:50] VITALS: BP 121/85; BP 94/64; PULSE 75; RESP 16; TEMP 36.4; O2SAT 95
--- NOTE | 2024-06-20 08:52 | PCM.POST.ANE ---
Anesthesia: Postop Eval I Current Vital Signs Temperature: 97.6 F Pulse Rate: 74 Blood Pressure: 94/64 Respiratory Rate: 16 Pulse Ox: 95 Oxygen Delivery Method: Room Air Assessment Airway patent: Yes Spontaneous unlabored respirations: Yes Mental status: Asleep nausea: No Vomiting: No Anesthesia Complication: No Fluid Hydration Crystalloid volume administer (ml): 50 Total IV fluid infused: 50 Progress Note Anesthesia document: Postop Eval 1 completed: Yes
[2024-06-20 08:53] VITALS: BP 94/64; PULSE 74; RESP 16; TEMP 36.4; O2SAT 95
[2024-06-20 08:55] VITALS: BP 121/85; BP 89/62; PULSE 71; RESP 16; O2SAT 92
[2024-06-20 09:05] VITALS: BP 100/68; BP 121/85; PULSE 68; RESP 16; O2SAT 93
[2024-06-20 09:10] VITALS: BP 110/75; BP 121/85; PULSE 76; RESP 16; TEMP 36.1; O2SAT 95
[2024-06-20 09:32] VITALS: BP 121/85
--- NOTE | 2024-06-20 09:57 | PCM.POSTANE2 ---
Anesthesia Postop Eval I Sum Postop Eval Completion status Anesthesia document: Postop Eval 1 completed: Yes Anesthesia Postop Eval I Summary Anesthesia Postop Eval I Summary: Anesthesia Postop Eval I: Assessment Summary Airway patent Yes 06/20/24 08:53 [email or web address] Spontaneous unlabored Yes 06/20/24 08:53 [email or web address] respirations Mental status Asleep 06/20/24 08:53 [email or web address] nausea No 06/20/24 08:53 [email or web address] Vomiting No 06/20/24 08:53 [email or web address] Anesthesia Postop Eval I: Fluid Summary Crystalloid volume administer 50 06/20/24 08:53 [email or web address] (ml) Colloids volume administered ( ml) Blood Product volume administered (ml) Total IV fluid infused 50 06/20/24 08:53 [email or web address] Anesthesia Postop Eval I: Summary Notes Anesthesia Complication No 06/20/24 08:53 [email or web address] Anesthesia Complication Comment: Post-operative progress note Anesthesia: Postop Eval II Evaluation Mental status: Awake Pain Level: 0 nausea: No Vomiting: No
== END 2024-06-20 09:33 | disposition home or self-care (01) ==
LOC: EN 07:42 → AC 07:42
PROVIDERS: PCP Family Medicine; Referring Provider Family Medicine; Visit Provider Internal Medicine Gastroenterology
PROC: 0DJD8ZZ Inspection of Lower Intestinal Tract, Via Natural or Artificial Opening Endoscopic (ICD-10-PCS; CPT 45378; principal; 2024-06-20 07:55)
DX: Z12.11 Encounter for screening for malignant neoplasm of colon (principal); K57.30 Diverticulosis of large intestine without perforation or abscess without bleeding; I25.10 Atherosclerotic heart disease of native coronary artery without angina pectoris; I10 Essential (primary) hypertension; E78.00 Pure hypercholesterolemia, unspecified; E03.9 Hypothyroidism, unspecified; Z79.890 Hormone replacement therapy; Z79.899 Other long term (current) drug therapy
CPT/HCPCS: G0121; A4216; J2405

== ENCOUNTER → 2024-08-29 | Outpatient (CLI) | payer MEDICARE, OTHER, SELFPAY | END | disposition home or self-care (01) | LOC: BFHLAB 09:44 → LABSPEC 09:46 | PROVIDERS: PCP Family Medicine; Visit Provider Family Medicine | DX: N10 Acute pyelonephritis (principal) | CPT/HCPCS: 87086; 87088 ==

== ENCOUNTER → 2025-05-10 | Outpatient (CLI) | payer MEDICARE, SELFPAY ==
[2025-05-10 12:04] LABS: Hematocrit 39.0 % (37-47); Hemoglobin 13.3 g/dL (12.0-15.0); Immature Granulocytes Count 0.030 X10^3/uL (0.0-0.0); Mean Corp Hgb Conc 34.1 g/dL (32-36); Mean Corpuscular Volume 93.1 fL (81-99); Mean Platelet Vol. 9.6 fl (6.2-12.0); NRBC Flagged by Analyzer 0 % (0-5); Platelet Count 209 K/mm3 (150-450); RBC Distribution Width CV 12.7 % (11.6-14.6); RBC Distribution Width SD 43.4 fl (35.1-43.9); Red Blood Count 4.19 M/mm3 (4.2-5.4); White Blood Count 5.3 K/mm3 (4.4-11.0)
[2025-05-10 12:52] LABS: AST(SGOT) 36 U/L (<=31); Alanine Aminotransfer ALT/SGPT 38 U/L (<=34); Albumin, Serum 4.2 g/dL (3.4-4.8); Alkaline Phosphatase 44 U/L (35-104); Anion Gap 11 (5-15); BUN 21 mg/dL (4-19); BUN/Creat Ratio 24.8 RATIO (10-20); Calcium,Total 9.6 mg/dL (7.6-11.0); Carbon Dioxide 27.2 mmol/L (21.0-32.0); Chloride 101 mmol/L (98-108); Cholesterol 174 mg/dL (<=200); Globulin 2.5 g/dL (2.2-4.2); Glucose 102 mg/dL (70-99); Low Density Lipoprotein Calc. 96 mg/dL; Potassium 4.2 mmol/L (3.3-5.1); Triglycerides 63 mg/dL; Very Low Density Lipoprotein 13 mg/dL (5-40); cholesterol:hdl ratio screen 2.64
== END | disposition home or self-care (01) ==
LOC: MTLAB 10:27
PROVIDERS: PCP Family Medicine; Referring Provider Family Medicine; Visit Provider Family Medicine
DX: I10 Essential (primary) hypertension (principal); E03.9 Hypothyroidism, unspecified
CPT/HCPCS: 36415; 80053; 80061; 84439; 84443; 85025